=== PATIENT | female | born 2005 | race African-American/Black ===

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

== ENCOUNTER 2023-10-19 14:03 | Emergency (ER) | payer OTHER ==
--- NOTE | 2023-10-19 14:47 | EDPHYS ---
Physician Documentation [facility] Name: Anna Chiang Age: 18 yrs Sex: Female : 2005 Arrival Date: 10/19/2023 Time: 14:03 Bed 4 Private MD: ED Physician Michael Schuster HPI: 10/18 14:41 This 18 yrs old Black Female presents to ER via Ambulatory with complaints of Back lary Pain, Numbness - LEGS, [id number]. 14:41 The patient presents with pain that is acute, with no known mechanism of injury. The lary symptoms are located in the thoracic area, left mid back and right mid back. Onset: The symptoms/episode began/occurred 2 day(s) ago. The pain does not radiate. Associated signs and symptoms: The patient has no apparent associated signs or symptoms. The problem was sustained from a direct blow. Modifying factors: The patient symptoms are alleviated by remaining still, the patient symptoms are aggravated by any movement, bending. Severity of symptoms: At their worst the symptoms were mild, in the emergency department the symptoms are unchanged. The patient has not experienced similar symptoms in the past. 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 ROS: 14:41 Constitutional: Negative for fever, chills, and weight loss, Eyes: Negative for injury, lary pain, redness, and discharge, ENT: Negative for injury, pain, and discharge, Neck: Negative for injury, pain, and swelling, Cardiovascular: Negative for chest pain, palpitations, and edema, Respiratory: Negative for shortness of breath, cough, wheezing, and pleuritic chest pain, Abdomen/GI: Negative for abdominal pain, nausea, vomiting, diarrhea, and constipation, : Negative for injury, bleeding, discharge, and swelling, MS/Extremity: Negative for injury and deformity, Skin: Negative for injury, rash, and discoloration, Neuro: Negative for headache, weakness, numbness, tingling, and seizure, Psych: Negative for depression, anxiety, suicide ideation, homicidal ideation, and hallucinations, Allergy/Immunology: Negative for hives, rash, and allergies, Endocrine: Negative for neck swelling, polydipsia, polyuria, polyphagia, and marked weight changes, Hematologic/Lymphatic: Negative for swollen nodes, abnormal bleeding, and unusual bruising, 14:41 Back: Positive for decreased range of motion, pain at rest, pain with movement, of the thoracic area, left mid back and right mid back, Exam: 14:45 Constitutional: This is a well developed, well nourished patient who is awake, alert, lary and in no acute distress. Head/Face: Normocephalic, atraumatic. Eyes: Pupils equal round and reactive to light, extra-ocular motions intact. Lids and lashes normal. Conjunctiva and sclera are non-icteric and not injected. Cornea within normal limits. Periorbital areas with no swelling, redness, or edema. ENT: Nares patent. No nasal discharge, no septal abnormalities noted. Tympanic membranes are normal and external auditory canals are clear. Oropharynx with no redness, swelling, or masses, exudates, or evidence of obstruction, uvula midline. Mucous membranes moist. Neck: Trachea midline, no thyromegaly or masses palpated, and no cervical lymphadenopathy. Supple, full range of motion without nuchal rigidity, or vertebral point tenderness. No Meningismus. Chest/axilla: Normal chest wall appearance and motion. Nontender with no deformity. No lesions are appreciated. Cardiovascular: Regular rate and rhythm with a normal S1 and S2. No gallops, murmurs, or rubs. Normal PMI, no JVD. No pulse deficits. Respiratory: Lungs have equal breath sounds bilaterally, clear to auscultation and percussion. No rales, rhonchi or wheezes noted. No increased work of breathing, no retractions or nasal flaring. Abdomen/GI: Soft, non-tender, with normal bowel sounds. No distension or tympany. No guarding or rebound. No evidence of tenderness throughout. Pelvic Exam: Normal external genitalia. Speculum exam with closed cervical os, no discharge or bleeding noted. Bimanual exam with normal adnexa, no adnexal or cervical motion tenderness. Normal uterus. Female : Normal external genitalia. Skin: Warm, dry with normal turgor. Normal color with no rashes, no lesions, and no evidence of cellulitis. MS/ Extremity: Pulses equal, no cyanosis. Neurovascular intact. Full, normal range of motion. Neuro: Awake and alert, GCS 15, oriented to person, place, time, and situation. Cranial nerves II-XII grossly intact. Motor strength 5/5 in all extremities. Sensory grossly intact. Cerebellar exam normal. Normal gait. Psych: Awake, alert, with orientation to person, place and time. Behavior, mood, and affect are within normal limits. 14:45 Back: pain, that is mild, that is moderate, ROM is painful, normal spinal alignment noted, CVA tenderness, is absent, muscle spasm, is not present, Straight leg raises: Vital Signs: 14:37 BP 120 / 80; Pulse 92; Resp 16; Temp 97.6; Pulse Ox 99% on R/A; Weight 56.7 kg; Height iw 5 ft. 7 in. ; 14:37 Body Mass Index 19.58 (56.70 kg, 170.18 cm) iw MDM: 14:09 Patient medically screened. lary 14:43 Differential diagnosis: Fracture ruptured disc, sprain. Data reviewed: vital signs, lary nurses notes, lab test result(s), radiologic studies, ultrasound. Consideration of Admission/Observation Escalation of care including admission/observation considered. I considered the following discharge prescriptions or medication management in the emergency department Medications were administered in the Emergency Department. See MAR. Independent interpretation of the following test(s) in the Emergency Department EKG: See my EKG interpretation above Point of Care Ultrasound performed by Emergency Department Team, please see interpretation in the Ultrasound procedure note. Rhythm Strip Interpretation. Test considered but Not performed: MRI: no mri spine. Care significantly affected by the following chronic conditions: . 10/18 14:49 Order name: 1St Trimest Single 1St Fetus EDUT 10/18 14:10 Order name: NPO; Complete Time: 14:12 lary Administered Medications: 14:48 Not Given (Physician Discretion): ns 0.9% 1000 ml IV at 1 bolus Per protocol; 1000 mL iw bolus Disposition Summary: 10/19/23 14:47 Discharge Ordered Notes: Location: Home lary Problem: new lary Symptoms: have improved lary Condition: Stable lary Diagnosis - Fall on same level from slipping, tripping and stumbling with subsequent striking lary against object - Strain of muscle and tendon of back wall of thorax lary - 14 weeks gestation of lary Followup: lary - With: Private Physician - When: 2 - 3 days - Reason: Recheck today's complaints, Continuance of care, Re-evaluation by your physician Discharge Instructions: - Discharge Summary Sheet lary - Musculoskeletal Pain lary - Care lary - Back Pain in lary Forms: - Medication Reconciliation Form lary - Antibiotic Education lary - Prescription Opioid Use lary - Patient Portal Instructions lary - Leadership Thank You Letter lary - Work release form aa5 Prescriptions: - Tylenol 325 mg Oral tablet - take 2 tablets ORAL route every 6 hours as needed; 36 tablet; Refills: 0, lary Product Selection Permitted Signatures: Dispatcher [employer] Michael Daniel MD MD cha Williams, Irene, RN RN iw Corrections: (The following items were deleted from the chart) 14:11 14:11 ABO/RH TYPING+BB.LAB.BRZ ordered. EDMS EDMS 14:11 14:11 BASIC METABOLIC PANEL+C.LAB.BRZ ordered. EDMS EDMS 14:11 14:11 CBC+H.LAB.BRZ ordered. EDMS EDMS 14:11 14:11 Test, Urine+UC.LAB.BRZ ordered. EDMS EDMS 14:11 14:11 QUANTITATIVE HCG+C.LAB.BRZ ordered. EDMS EDMS 14:11 14:11 Urinalysis+U.LAB.BRZ ordered. EDMS EDMS 14:11 14:11 OB Limited+US.RAD.BRZ ordered. EDUT EDMS 14:48 14:10 IV Saline Lock ordered. [facility] iw 14:48 14:10 Labs collected and sent ordered. [facility] iw
--- NOTE | 2023-10-19 14:47 | ER ---
Nurse's Notes [facility] Name: Anna Chiang Age: 18 yrs Sex: Female : 2005 Arrival Date: 10/19/2023 Time: 14:03 Bed 4 Private MD: Diagnosis: Fall on same level from slipping, tripping and stumbling with subsequent striking against object;Strain of muscle and tendon of back wall of thorax;14 weeks gestation of Presentation: 10/18 14:18 Chief complaint: Patient states: she hit against a sharp ledge yesterday , hit her mid iw back, she had pain in her back yesterday and then today she is having pain down her right leg, she got up to the bathroom and felt both her legs go numb, it lasted about 2 minutes , the numbness has resolved but she still has pain down right leg , is 14 weeks . Coronavirus screen: At this time, the client does not indicate any symptoms associated with coronavirus-19. Ebola Screen: No symptoms or risks identified at this time. Initial Sepsis Screen: Does the patient meet any 2 criteria? No. Patient's initial sepsis screen is negative. Does the patient have a suspected source of infection? No. Patient's initial sepsis screen is negative. 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 Vital Signs: 14:37 BP 120 / 80; Pulse 92; Resp 16; Temp 97.6; Pulse Ox 99% on R/A; Weight 56.7 kg; Height iw 5 ft. 7 in. ; 14:37 Body Mass Index 19.58 (56.70 kg, 170.18 cm) iw ED Course: 14:06 Patient arrived in ED. mg5 14:09 Michael Schuster MD is Attending Physician. lary 14:14 Lizzy De La Rosa, RN is Primary Nurse. iw 14:25 Triage completed. iw 14:49 1St Trimest Single 1St Fetus In Process Unspecified. EDMS Administered Medications: 14:48 Not Given (Physician Discretion): ns 0.9% 1000 ml IV at 1 bolus Per protocol; 1000 mL iw bolus Outcome: 14:47 Discharge ordered by MD. barth 15:11 Patient left the ED. iw Signatures: Dispatcher [employer] EDMichael Silva MD MD cha Williams, Irene, REMY RN Carrol Ludwig mg5
--- NOTE | 2023-10-19 15:03 | RAD REPORT ---
EXAM DESCRIPTION: US - 1St Trimest Single 1St Fetus - 10/19/2023 2:48 pm CLINICAL HISTORY: ABD CRAMPING, COMPARISON: Transvaginal OB dated 09/27/2023 FINDINGS: Single IUP identified with positive heart tones. The crown rump length measures 7.1 cm which is consistent with 13 week 3 day. The femur length measures 1.1 cm which is consistent with 13 week 3 day. The heart rate measures 157 bpm. The cervix is closed measuring 3.1 cm. The lona centa is anterior. Neither ovary visualized, possibly obscured by bowel gas . IMPRESSION: Single live IUP with positive heart tones measuring 13 week 3 day with MAY of 04/04.
[2023-10-19 15:16] VITALS: BP 120/80; TEMP 97.6; O2SAT 99
== END 2023-10-19 15:11 | disposition home or self-care (01) ==
LOC: ER 14:03
DX: O9A.211 Injury, poisoning and certain other consequences of external causes complicating pregnancy, first trimester (principal); S29.012A Strain of muscle and tendon of back wall of thorax, initial encounter; W01.10XA Fall on same level from slipping, tripping and stumbling with subsequent striking against unspecified object, initial encounter; Z3A.14 14 weeks gestation of pregnancy
CPT/HCPCS: 76801; 99281

== ENCOUNTER 2023-12-18 13:11 | Emergency (ER) | payer OTHER ==
--- OUTSIDE RECORDS SUMMARY | 2023-12-18 13:17 | XMS REPORT | Continuity of Care Document ---
Author Name Unknown Address [address] [facility] [address] [place] [address] [facility] thconnect Address [address] [facility] [address] [place] [address] Care Team Providers Care Radiation Control Health Physicist Name Role Phone Pcp, Patient Does Not Have A Primary Care Physic niesha VENUS VALENZUELA Attending Clinician UnavailVenus Baum CNM Attending Clinician [phone] Lucas ALBERTO, Janie Luna Attending Clinician Unavaila JAY Marroquin Attending Clinician Unavailable JAY JEAN Attending Clinician Unavailable Jay Jean MD Attending Clinician [phone] MEHRAN PEREZ Attending Clinician Unavailable Yasmine Colin Attending Clinician UnavailMehran Hall MD Attending Clinician [phone] AKINGRAY CHANEL Attending Clinician Unavail able Gray Owens Attending Clinician + HENRIETTA FRANCOIS Attending Clinician Unav ailable Ultrasound, Ang-Mfm Attending Clinician Unavaila Henrietta Hdez MD Attending Clinician + Venus Valenzuela CNM Attending Clinician [phone] BROOKS LUCAS Attending Clinician Unavailable BROOKS LUCAS Attending Clinician Unavailable CECILIA VINCENT Attending Clinician Unavailable CECILIA VINCENT Attending Clinician Unavailable Provider, Ang-Rmchp Temp Attending Clinician Radha FORREST Velez Attending Clinician Unavailable Mandy WARDP, Forrest Luna Attending Clinician [phone] Doctor Unassigned, [place] Attending Clinician U navailable CHICO MILLER Attending Clinician Unavailable Saad JEFFERY, Wisam Attending Clinician [phone] BILLY MUNOZ Attending Clinician Unavailable Alexander LEAD RAMP SERVICE MAN, Billy Attending Clinician [phone] Akinsipe WHCNP, Gray Mcbride Attending Clinician + Inocencia LEAD RAMP SERVICE MAN, Ludy Attending Clinician [phone] LUDY PRO Attending Clinician Unavailje e Ed WARDP, Felicitas Waldron Attending Clinician [phone] FEILCITAS THAYER Attending Clinician Unavailab Sammi Simmons MD Attending Clinician [phone] SAMMI ROBERSON Attending Clinician Unavailable Visit, Ang-Rmchp Nurse Attending Clinician Unava ilable Lab, Ang-Rmchp Attending Clinician Unavailable MEG LOWE Attending Clinician Unavail able SHARON BONDS Attending Clinician Unavailable JAY JEAN Admitting Clinician Unavailable Jay Jean MD Admitting Clinician [phone] BROOKS LUCAS Admitting Clinician Unavailable Payers Payer Name Policy Type Policy Number Effective Date Expirati on Date Source [place] [employer] [id number] 2023 00:00:00 [facility] [place] [id number] 2022 00:00:00 [employer] II [id number] 2018 00:00:00 Problems Condition Name Condition Details Condition Category Status Onset Date Resolution Date Last Treatment Date Treating Clinician Comments Source 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 Not treated as <10,000 [facility] Decreased platelet count Decreased platelet count Disease Active 7 00:00: 00 [facility] False positive HIV serology False positive HIV serology Disease Active 7 00:00: 00 [facility] Nausea and vomiting during Nausea and vomiting during Disease Active 7 00:00: 00 [facility] Mixed anxiety and depressive disorder Mixed anxiety and depressive disorder Disease Active 2021-03 1-15 00:00: 00 [facility] Attention deficit disorder Attention deficit disorder Disease Active 0 8-21 00:00: 00 [facility] Asthma during Asthma during Disease Active 2012-03 2-17 00:00: 00 [facility] Subchorion ic bleed Subchorion ic bleed Disease Resolve d 8-02 00:00: 00 2023-12-10 00:00:00 2023-12-10 10:23:48 [facility] Headache in , antepartum , first trimester Headache in , antepartum , first trimester Disease Resolve d 7-29 00:00: 00 2023-12-10 00:00:00 2023-12-10 10:23:50 [facility] Nausea and vomiting during Nausea and vomiting during Disease Resolve d 7-19 00:00: 00 2023-12-10 00:00:00 2023-12-10 10:23:54 [facility] Initiation of OCP (BCP) Initiation of OCP (BCP) Disease Resolve d 2022-03 00:00: 00 2023-09-20 00:00:00 2023-09-20 08:28:06 [facility] Dysmenorrh ea Dysmenorrh ea Disease Resolve d 2022-03 00:00: 00 2023-09-20 00:00:00 2023-09-20 08:27:54 [facility] Irregular menstrual cycle Irregular menstrual cycle Disease Resolve d 2022-03 00:00: 00 2023-09-20 00:00:00 2023-09-20 08:27:55 [facility] Decreased thyroid stimulatin g hormone level Decreased thyroid stimulatin g hormone level Disease Resolve d 3-16 00:00: 00 2023-09-20 00:00:00 2023-09-20 08:40:23 [facility] Well woman exam Well woman exam Disease Resolve d 8-31 00:00: 00 2023-09-20 00:00:00 2023-09-20 08:27:57 [facility] Encounter for IUD insertion Encounter for IUD insertion Disease Resolve d 2021-03- 00:00: 00 2023-01-08 00:00:00 2023-01-08 12:13:28 [facility] Vaginal discharge Vaginal discharge Disease Resolve d 0 4-28 00:00: 00 2023-01-08 00:00:00 2023-01-08 08:09:20 [facility] Other general counseling and advice for contracept krystal management Other general counseling and advice for contracept krystal management Disease Resolve d 2019-0 3-04 00:00: 00 2023-01-08 00:00:00 2023-01-08 08:09:31 [facility] Encounter for Nexplanon removal Encounter for Nexplanon removal Disease Resolve d 2019-0 3-04 00:00: 00 2019-10-21 00:00:00 2019-10-21 14:00:24 [facility] Breakthrou gh bleeding on Nexplanon Breakthrou gh bleeding on Nexplanon Disease Resolve d 2018-1 2-18 00:00: 00 2019-10-21 00:00:00 2019-10-21 14:00:22 [facility] Allergies, Adverse Reactions, Alerts Allergy Name Allergy Type Status Severity Reaction(s) Onset Date Inactive Date Treating Clinician Comments Source CODEINE DRUG INGREDI Active Unknown-Cmnt 2022-03 00:00: 00 [facility] Codeine Propensi ty to adverse reaction s Active Unknown - See comments 2022-03 00:00: 00 [facility] PENICILL AMINE DRUG INGREDI Active SOB 09-22 00:00: 00 [facility] Penicill amine Propensi ty to adverse reaction s Active Shortness of Breath 09-22 00:00: 00 [facility] Social History Social Habit Start Date Stop Date Quantity Comments Source ASSERTION 2023-07-25 00:00:00 [facility] SDOH Alcohol Std Drinks [facility] History SDOH Alcohol Binge [facility] History SDOH Alcohol Comment [facility] Alcoholic beverage intake 2023-12-10 00:00:00 2023-12-10 00:00:00 Lifetime non-drinker (finding) [facility] History of Social function 2023-11-05 00:00:00 2023-11-05 00:00:00 [facility] Alcohol intake 2023-01-16 00:00:00 2023-01-16 00:00:00 Lifetime non-drinker (finding) [facility] Exposure to SARS-CoV-2 (event) 2022-01-16 00:00:00 2022-01-26 17:49:00 Not sure [facility] Tobacco use and exposure 2021-11-01 00:00:00 2021-11-01 00:00:00 Smokeless tobacco non-user [facility] History SDOH Alcohol Frequency 2018-09-22 00:00:00 2018-09-22 00:00:00 1 [facility] Sex assigned at 2003 00:00:00 2005 00:00:00 [facility] Smoking Status Start Date Stop Date Source Never smoked tobacco [facility] Medications Ordered Medication Name Filled Medication Name Start Date Stop Date Current Medication? Ordering Clinician Indication Dosage Frequency Signature (SIG) Comments Components Source acetaminoph en (TYLENOL) tablet 650 mg 10-02 20:45: 00 10-02 21:36 :00 No 650mg 650 mg, Oral, ONCE, 1 dose, On Mehnaz 10/03/23 at 1545, [facility] NaCl 0.9% (NS) bolus infusion 1,000 mL 09-26 19:00: 00 09-26 21:10 :00 No 1000mL at 999 mL/hr, 1,000 mL, IV Infusion, ONCE, 1 dose, On Sat09/27/23 at 1400, [facility] ondansetron (ZOFRAN (PF)) injection 4 mg 09-26 18:30: 00 09-26 19:45 :00 No 4mg 4 mg, Slow IV Push, ONCE, 1 dose, On Sat09/27/23 at 1330, [facility] proMETHazin e 25 mg tablet 09-19 00:00: 00 Yes [id number] 25mg Take 1 tablet by mouth every 4 (four) hours as needed for Nausea and Vomiting (N/V). [facility] metroNIDAZO LE 500 mg tablet 2022-03 00:00: 00 01-19 05:59 :00 No [id number] 500mg Take 1 tablet by mouth in the morning and 1 tablet in the evening. Do all this for 7 days. [facility] levonorgest rel-ethinyl estradiol (JESSI, 28,) 0.15-0.03 mg per tablet 2022-03 00:00: 00 09-19 00:00 :00 No [id number] 1{tbl} Take 1 tablet by mouth in the morning. [facility] busPIRone 10 mg tablet 11-20 00:00: 00 09-19 00:00 :00 No 10mg Take 1 tablet by mouth in the morning and 1 tablet at noon and 1 tablet in the evening. [facility] FLUoxetine 20 mg capsule 4-10 00:00: 00 09-19 00:00 :00 No TAKE 1 CAPSULE(20 MG) BY MOUTH 1 TIME EACH DAY [facility] azithromyci n 500 mg tablet 2021-03 1- 00:00: 00 02-01 05:59 :00 No [id number] 500mg Take 1 tablet by mouth in the morning for 5 days. [facility] levonorgest reL (KYLEENA) IUD 1 Device 2021-03 23:30: 00 01-11 22:44 :00 No [id number] 1{devic e} [facility] ibuprofen 800 mg tablet 12-01 00:00: 00 12-12 04:59 :00 No [id number] 800mg Take 1 tablet by mouth in the morning and 1 tablet at noon and 1 tablet in the evening. Take with meals. Do all this for 10 days. [facility] medroxyPROG ESTERone (DEPO-PROVE RA) injection 150 mg 11-01 15:45: 00 10-03 15:44 :00 No [id number] 150mg [facility] norgestimat e-ethinyl estradioL 0.18/0.215/ 0.25 mg-25 mcg tablet 08-01 00:00: 00 01-08 00:00 :00 No [id number] 1{tbl} Take 1 tablet by mouth daily. [facility] metroNIDAZO LE 500 mg tablet 07-01 00:00: 00 01-08 00:00 :00 No [id number] 500mg Take 1 tablet by mouth 2 (two) times daily. [facility] Immunizations Ordered Immunization Name Filled Immunization Name Date Status Comments Source [facility] 2021-11-01 00:00:00 Completed [facility] HPV9 2021-11-01 00:00:00 Completed [facility] 2021-11-01 00:00:00 Completed [facility] 2021-11-01 00:00:00 Completed [facility] HPV9 2021-11-01 00:00:00 Completed [facility] HPV9 2021-11-01 00:00:00 Completed [facility] HPV9 2021-11-01 00:00:00 Completed [facility] HPV9 2021-11-01 00:00:00 Completed [facility] HPV9 2021-11-01 00:00:00 Completed [facility] HPV9 2021-11-01 00:00:00 Completed [facility] HPV9 2021-11-01 00:00:00 Completed [facility] SARS-COV-2 COVID-19 PFIZER VACCINE 2020-07-25 00:00:00 Completed [facility] SARS-COV-2 COVID-19 PFIZER VACCINE 2020-07-25 00:00:00 Completed [facility] SARS-COV-2 COVID-19 PFIZER VACCINE 2020-07-25 00:00:00 Completed [facility] SARS-COV-2 COVID-19 PFIZER VACCINE 2020-07-25 00:00:00 Completed [facility] SARS-COV-2 COVID-19 PFIZER VACCINE 2020-07-25 00:00:00 Completed [facility] SARS-COV-2 COVID-19 PFIZER VACCINE 2020-07-25 00:00:00 Completed [facility] SARS-COV-2 COVID-19 PFIZER VACCINE 2020-07-25 00:00:00 Completed [facility] SARS-COV-2 COVID-19 PFIZER VACCINE 2020-07-25 00:00:00 Completed [facility] SARS-COV-2 COVID-19 PFIZER VACCINE 2020-07-25 00:00:00 Completed [facility] SARS-COV-2 COVID-19 PFIZER VACCINE 2020-07-25 00:00:00 Completed [facility] SARS-COV-2 COVID-19 PFIZER VACCINE 2020-07-25 00:00:00 Completed [facility] SARS-COV-2 COVID-19 PFIZER VACCINE 2020-06-25 00:00:00 Completed [facility] SARS-COV-2 COVID-19 PFIZER VACCINE 2020-06-25 00:00:00 Completed [facility] SARS-COV-2 COVID-19 PFIZER VACCINE 2020-06-25 00:00:00 Completed [facility] SARS-COV-2 COVID-19 PFIZER VACCINE 2020-06-25 00:00:00 Completed [facility] SARS-COV-2 COVID-19 PFIZER VACCINE 2020-06-25 00:00:00 Completed [facility] SARS-COV-2 COVID-19 PFIZER VACCINE 2020-06-25 00:00:00 Completed [facility] SARS-COV-2 COVID-19 PFIZER VACCINE 2020-06-25 00:00:00 Completed [facility] SARS-COV-2 COVID-19 PFIZER VACCINE 2020-06-25 00:00:00 Completed [facility] SARS-COV-2 COVID-19 PFIZER VACCINE 2020-06-25 00:00:00 Completed [facility] SARS-COV-2 COVID-19 PFIZER VACCINE 2020-06-25 00:00:00 Completed [facility] SARS-COV-2 COVID-19 PFIZER VACCINE 2020-06-25 00:00:00 Completed [facility] HPV9 2018-09-22 00:00:00 Completed [facility] HPV 2018-09-22 00:00:00 Completed [facility] HPV9 2018-09-22 00:00:00 Completed [facility] HPV 2018-09-22 00:00:00 Completed [facility] HPV9 2018-09-22 00:00:00 Completed [facility] HPV 2018-09-22 00:00:00 Completed [facility] HPV9 2018-09-22 00:00:00 Completed [facility] HPV 2018-09-22 00:00:00 Completed [facility] HPV9 2018-09-22 00:00:00 Completed [facility] HPV 2018-09-22 00:00:00 Completed [facility] HPV9 2018-09-22 00:00:00 Completed [facility] HPV 2018-09-22 00:00:00 Completed [facility] HPV9 2018-09-22 00:00:00 Completed [facility] HPV 2018-09-22 00:00:00 Completed [facility] HPV9 2018-09-22 00:00:00 Completed [facility] HPV 2018-09-22 00:00:00 Completed [facility] HPV9 2018-09-22 00:00:00 Completed [facility] HPV 2018-09-22 00:00:00 Completed [facility] HPV9 2018-09-22 00:00:00 Completed [facility] HPV 2018-09-22 00:00:00 Completed [facility] HPV9 2018-09-22 00:00:00 Completed [facility] HPV 2018-09-22 00:00:00 Completed Meningococcal Vaccine 2015-10-19 00:00:00 Completed [facility] TDAP 2015-10-19 00:00:00 Completed [facility] Meningococcal Vaccine 2015-10-19 00:00:00 Completed [facility] TDAP 2015-10-19 00:00:00 Completed [facility] Meningococcal Vaccine 2015-10-19 00:00:00 Completed [facility] TDAP 2015-10-19 00:00:00 Completed [facility] Meningococcal Vaccine 2015-10-19 00:00:00 Completed [facility] TDAP 2015-10-19 00:00:00 Completed [facility] Meningococcal Vaccine 2015-10-19 00:00:00 Completed [facility] TDAP 2015-10-19 00:00:00 Completed [facility] Meningococcal Vaccine 2015-10-19 00:00:00 Completed [facility] TDAP 2015-10-19 00:00:00 Completed [facility] Meningococcal Vaccine 2015-10-19 00:00:00 Completed [facility] TDAP 2015-10-19 00:00:00 Completed [facility] Meningococcal Vaccine 2015-10-19 00:00:00 Completed [facility] TDAP 2015-10-19 00:00:00 Completed [facility] Meningococcal Vaccine 2015-10-19 00:00:00 Completed [facility] TDAP 2015-10-19 00:00:00 Completed [facility] Meningococcal Vaccine 2015-10-19 00:00:00 Completed [facility] TDAP 2015-10-19 00:00:00 Completed [facility] Meningococcal Vaccine 2015-10-19 00:00:00 Completed TDAP 2015-10-19 00:00:00 Completed DTAP 2008-10-25 00:00:00 Completed [facility] DTAP 2008-10-25 00:00:00 Completed [facility] DTAP 2008-10-25 00:00:00 Completed [facility] DTAP 2008-10-25 00:00:00 Completed [facility] DTAP 2008-10-25 00:00:00 Completed [facility] DTAP 2008-10-25 00:00:00 Completed [facility] DTAP 2008-10-25 00:00:00 Completed [facility] DTAP 2008-10-25 00:00:00 Completed [facility] DTAP 2008-10-25 00:00:00 Completed [facility] DTAP 2008-10-25 00:00:00 Completed [facility] DTAP 2008-10-25 00:00:00 Completed MMR 2008-03-05 00:00:00 Completed [facility] MMR 2008-03-05 00:00:00 Completed [facility] MMR 2008-03-05 00:00:00 Completed [facility] MMR 2008-03-05 00:00:00 Completed [facility] MMR 2008-03-05 00:00:00 Completed [facility] MMR 2008-03-05 00:00:00 Completed [facility] MMR 2008-03-05 00:00:00 Completed [facility] MMR 2008-03-05 00:00:00 Completed [facility] MMR 2008-03-05 00:00:00 Completed [facility] MMR 2008-03-05 00:00:00 Completed [facility] MMR 2008-03-05 00:00:00 Completed Hepatitis A Adult 2008-01-02 00:00:00 Completed [facility] MMR 2008-01-02 00:00:00 Completed [facility] Hepatitis A Adult 2008-01-02 00:00:00 Completed [facility] MMR 2008-01-02 00:00:00 Completed [facility] Hepatitis A Adult 2008-01-02 00:00:00 Completed [facility] MMR 2008-01-02 00:00:00 Completed [facility] Hepatitis A Adult 2008-01-02 00:00:00 Completed [facility] MMR 2008-01-02 00:00:00 Completed [facility] Hepatitis A Adult 2008-01-02 00:00:00 Completed [facility] MMR 2008-01-02 00:00:00 Completed [facility] Hepatitis A Adult 2008-01-02 00:00:00 Completed [facility] MMR 2008-01-02 00:00:00 Completed [facility] Hepatitis A Adult 2008-01-02 00:00:00 Completed [facility] MMR 2008-01-02 00:00:00 Completed [facility] Hepatitis A Adult 2008-01-02 00:00:00 Completed [facility] MMR 2008-01-02 00:00:00 Completed [facility] Hepatitis A Adult 2008-01-02 00:00:00 Completed [facility] MMR 2008-01-02 00:00:00 Completed [facility] Hepatitis A Adult 2008-01-02 00:00:00 Completed [facility] MMR 2008-01-02 00:00:00 Completed [facility] Hepatitis A Adult 2008-01-02 00:00:00 Completed MMR 2008-01-02 00:00:00 Completed DTAP 2007-12-08 00:00:00 Completed [facility] HIB 3 Dose Schedule 2007-12-08 00:00:00 Completed [facility] Hep B, Adol or Pedi Dosage 2007-12-08 00:00:00 Completed [facility] Polio (IPV/OPV) 2007-12-08 00:00:00 Completed [facility] Varicella (varivax)(chicken pox) 2007-12-08 00:00:00 Completed [facility] Pneumococcal 7 Conjugate, PCV7 (Prevnar7) 2007-12-08 00:00:00 Completed [facility] DTAP 2007-12-08 00:00:00 Completed [facility] HIB 3 Dose Schedule 2007-12-08 00:00:00 Completed [facility] Hep B, Adol or Pedi Dosage 2007-12-08 00:00:00 Completed [facility] Polio (IPV/OPV) 2007-12-08 00:00:00 Completed [facility] Varicella (varivax)(chicken pox) 2007-12-08 00:00:00 Completed [facility] Pneumococcal 7 Conjugate, PCV7 (Prevnar7) 2007-12-08 00:00:00 Completed [facility] DTAP 2007-12-08 00:00:00 Completed [facility] HIB 3 Dose Schedule 2007-12-08 00:00:00 Completed [facility] Hep B, Adol or Pedi Dosage 2007-12-08 00:00:00 Completed [facility] Polio (IPV/OPV) 2007-12-08 00:00:00 Completed [facility] Varicella (varivax)(chicken pox) 2007-12-08 00:00:00 Completed [facility] Pneumococcal 7 Conjugate, PCV7 (Prevnar7) 2007-12-08 00:00:00 Completed [facility] DTAP 2007-12-08 00:00:00 Completed [facility] HIB 3 Dose Schedule 2007-12-08 00:00:00 Completed [facility] Hep B, Adol or Pedi Dosage 2007-12-08 00:00:00 Completed [facility] Polio (IPV/OPV) 2007-12-08 00:00:00 Completed [facility] Varicella (varivax)(chicken pox) 2007-12-08 00:00:00 Completed [facility] Pneumococcal 7 Conjugate, PCV7 (Prevnar7) 2007-12-08 00:00:00 Completed [facility] DTAP 2007-12-08 00:00:00 Completed [facility] HIB 3 Dose Schedule 2007-12-08 00:00:00 Completed [facility] Hep B, Adol or Pedi Dosage 2007-12-08 00:00:00 Completed [facility] Polio (IPV/OPV) 2007-12-08 00:00:00 Completed [facility] Varicella (varivax)(chicken pox) 2007-12-08 00:00:00 Completed [facility] Pneumococcal 7 Conjugate, PCV7 (Prevnar7) 2007-12-08 00:00:00 Completed [facility] DTAP 2007-12-08 00:00:00 Completed [facility] HIB 3 Dose Schedule 2007-12-08 00:00:00 Completed [facility] Hep B, Adol or Pedi Dosage 2007-12-08 00:00:00 Completed [facility] [facility] Polio (IPV/OPV) 2007-12-08 00:00:00 Completed [facility] Varicella (varivax)(chicken pox) 2007-12-08 00:00:00 Completed [facility] Pneumococcal 7 Conjugate, PCV7 (Prevnar7) 2007-12-08 00:00:00 Completed [facility] DTAP 2007-12-08 00:00:00 Completed [facility] HIB 3 Dose Schedule 2007-12-08 00:00:00 Completed [facility] Hep B, Adol or Pedi Dosage 2007-12-08 00:00:00 Completed [facility] Polio (IPV/OPV) 2007-12-08 00:00:00 Completed [facility] Varicella (varivax)(chicken pox) 2007-12-08 00:00:00 Completed [facility] Pneumococcal 7 Conjugate, PCV7 (Prevnar7) 2007-12-08 00:00:00 Completed [facility] DTAP 2007-12-08 00:00:00 Completed [facility] HIB 3 Dose Schedule 2007-12-08 00:00:00 Completed [facility] Hep B, Adol or Pedi Dosage 2007-12-08 00:00:00 Completed [facility] Polio (IPV/OPV) 2007-12-08 00:00:00 Completed [facility] Varicella (varivax)(chicken pox) 2007-12-08 00:00:00 Completed [facility] Pneumococcal 7 Conjugate, PCV7 (Prevnar7) 2007-12-08 00:00:00 Completed [facility] DTAP 2007-12-08 00:00:00 Completed [facility] HIB 3 Dose Schedule 2007-12-08 00:00:00 Completed [facility] Hep B, Adol or Pedi Dosage 2007-12-08 00:00:00 Completed [facility] Polio (IPV/OPV) 2007-12-08 00:00:00 Completed [facility] Varicella (varivax)(chicken pox) 2007-12-08 00:00:00 Completed [facility] Pneumococcal 7 Conjugate, PCV7 (Prevnar7) 2007-12-08 00:00:00 Completed [facility] DTAP 2007-12-08 00:00:00 Completed [facility] HIB 3 Dose Schedule 2007-12-08 00:00:00 Completed [facility] Hep B, Adol or Pedi Dosage 2007-12-08 00:00:00 Completed [facility] Polio (IPV/OPV) 2007-12-08 00:00:00 Completed [facility] Varicella (varivax)(chicken pox) 2007-12-08 00:00:00 Completed [facility] Pneumococcal 7 Conjugate, PCV7 (Prevnar7) 2007-12-08 00:00:00 Completed [facility] DTAP 2007-12-08 00:00:00 Completed HIB 3 Dose Schedule 2007-12-08 00:00:00 Completed Hep B, Adol or Pedi Dosage 2007-12-08 00:00:00 Completed Polio (IPV/OPV) 2007-12-08 00:00:00 Completed Varicella (varivax)(chicken pox) 2007-12-08 00:00:00 Completed Pneumococcal 7 Conjugate, PCV7 (Prevnar7) 2007-12-08 00:00:00 Completed DTAP 2006-09-30 00:00:00 Completed [facility] HIB 3 Dose Schedule 2006-09-30 00:00:00 Completed [facility] Hepatitis A Adult 2006-09-30 00:00:00 Completed [facility] MMR 2006-09-30 00:00:00 Completed [facility] Polio (IPV/OPV) 2006-09-30 00:00:00 Completed [facility] Varicella (varivax)(chicken pox) 2006-09-30 00:00:00 Completed [facility] Pneumococcal 7 Conjugate, PCV7 (Prevnar7) 2006-09-30 00:00:00 Completed [facility] DTAP 2006-09-30 00:00:00 Completed [facility] HIB 3 Dose Schedule 2006-09-30 00:00:00 Completed [facility] Hepatitis A Adult 2006-09-30 00:00:00 Completed [facility] MMR 2006-09-30 00:00:00 Completed [facility] Polio (IPV/OPV) 2006-09-30 00:00:00 Completed [facility] Varicella (varivax)(chicken pox) 2006-09-30 00:00:00 Completed [facility] Pneumococcal 7 Conjugate, PCV7 (Prevnar7) 2006-09-30 00:00:00 Completed [facility] DTAP 2006-09-30 00:00:00 Completed [facility] HIB 3 Dose Schedule 2006-09-30 00:00:00 Completed [facility] Hepatitis A Adult 2006-09-30 00:00:00 Completed [facility] MMR 2006-09-30 00:00:00 Completed [facility] Polio (IPV/OPV) 2006-09-30 00:00:00 Completed [facility] Varicella (varivax)(chicken pox) 2006-09-30 00:00:00 Completed [facility] Pneumococcal 7 Conjugate, PCV7 (Prevnar7) 2006-09-30 00:00:00 Completed [facility] DTAP 2006-09-30 00:00:00 Completed [facility] HIB 3 Dose Schedule 2006-09-30 00:00:00 Completed [facility] Hepatitis A Adult 2006-09-30 00:00:00 Completed [facility] MMR 2006-09-30 00:00:00 Completed [facility] Polio (IPV/OPV) 2006-09-30 00:00:00 Completed [facility] Varicella (varivax)(chicken pox) 2006-09-30 00:00:00 Completed [facility] Pneumococcal 7 Conjugate, PCV7 (Prevnar7) 2006-09-30 00:00:00 Completed [facility] DTAP 2006-09-30 00:00:00 Completed [facility] HIB 3 Dose Schedule 2006-09-30 00:00:00 Completed [facility] Hepatitis A Adult 2006-09-30 00:00:00 Completed [facility] MMR 2006-09-30 00:00:00 Completed [facility] Polio (IPV/OPV) 2006-09-30 00:00:00 Completed [facility] Varicella (varivax)(chicken pox) 2006-09-30 00:00:00 Completed [facility] Pneumococcal 7 Conjugate, PCV7 (Prevnar7) 2006-09-30 00:00:00 Completed [facility] DTAP 2006-09-30 00:00:00 Completed [facility] HIB 3 Dose Schedule 2006-09-30 00:00:00 Completed [facility] Hepatitis A Adult 2006-09-30 00:00:00 Completed [facility] MMR 2006-09-30 00:00:00 Completed [facility] Polio (IPV/OPV) 2006-09-30 00:00:00 Completed [facility] Varicella (varivax)(chicken pox) 2006-09-30 00:00:00 Completed [facility] Pneumococcal 7 Conjugate, PCV7 (Prevnar7) 2006-09-30 00:00:00 Completed [facility] DTAP 2006-09-30 00:00:00 Completed [facility] HIB 3 Dose Schedule 2006-09-30 00:00:00 Completed [facility] Hepatitis A Adult 2006-09-30 00:00:00 Completed [facility] MMR 2006-09-30 00:00:00 Completed [facility] Polio (IPV/OPV) 2006-09-30 00:00:00 Completed [facility] Varicella (varivax)(chicken pox) 2006-09-30 00:00:00 Completed [facility] Pneumococcal 7 Conjugate, PCV7 (Prevnar7) 2006-09-30 00:00:00 Completed [facility] DTAP 2006-09-30 00:00:00 Completed [facility] HIB 3 Dose Schedule 2006-09-30 00:00:00 Completed [facility] Hepatitis A Adult 2006-09-30 00:00:00 Completed [facility] MMR 2006-09-30 00:00:00 Completed [facility] Polio (IPV/OPV) 2006-09-30 00:00:00 Completed [facility] Varicella (varivax)(chicken pox) 2006-09-30 00:00:00 Completed [facility] Pneumococcal 7 Conjugate, PCV7 (Prevnar7) 2006-09-30 00:00:00 Completed [facility] DTAP 2006-09-30 00:00:00 Completed [facility] HIB 3 Dose Schedule 2006-09-30 00:00:00 Completed [facility] Hepatitis A Adult 2006-09-30 00:00:00 Completed [facility] MMR 2006-09-30 00:00:00 Completed [facility] Polio (IPV/OPV) 2006-09-30 00:00:00 Completed [facility] Varicella (varivax)(chicken pox) 2006-09-30 00:00:00 Completed [facility] Pneumococcal 7 Conjugate, PCV7 (Prevnar7) 2006-09-30 00:00:00 Completed [facility] DTAP 2006-09-30 00:00:00 Completed [facility] HIB 3 Dose Schedule 2006-09-30 00:00:00 Completed [facility] Hepatitis A Adult 2006-09-30 00:00:00 Completed [facility] MMR 2006-09-30 00:00:00 Completed [facility] Polio (IPV/OPV) 2006-09-30 00:00:00 Completed [facility] Varicella (varivax)(chicken pox) 2006-09-30 00:00:00 Completed [facility] Pneumococcal 7 Conjugate, PCV7 (Prevnar7) 2006-09-30 00:00:00 Completed [facility] DTAP 2006-09-30 00:00:00 Completed HIB 3 Dose Schedule 2006-09-30 00:00:00 Completed Hepatitis A Adult 2006-09-30 00:00:00 Completed MMR 2006-09-30 00:00:00 Completed Polio (IPV/OPV) 2006-09-30 00:00:00 Completed Varicella (varivax)(chicken pox) 2006-09-30 00:00:00 Completed Pneumococcal 7 Conjugate, PCV7 (Prevnar7) 2006-09-30 00:00:00 Completed DTAP 2003 00:00:00 Completed [facility] HIB 3 Dose Schedule 2003 00:00:00 Completed [facility] Hep B, Adol or Pedi Dosage 2003 00:00:00 Completed [facility] Polio (IPV/OPV) 2003 00:00:00 Completed [facility] Pneumococcal 7 Conjugate, PCV7 (Prevnar7) 2003 00:00:00 Completed [facility] DTAP 2003 00:00:00 Completed [facility] HIB 3 Dose Schedule 2003 00:00:00 Completed [facility] Hep B, Adol or Pedi Dosage 2003 00:00:00 Completed [facility] Polio (IPV/OPV) 2003 00:00:00 Completed [facility] Pneumococcal 7 Conjugate, PCV7 (Prevnar7) 2003 00:00:00 Completed [facility] DTAP 2003 00:00:00 Completed [facility] HIB 3 Dose Schedule 2003 00:00:00 Completed [facility] Hep B, Adol or Pedi Dosage 2003 00:00:00 Completed [facility] Polio (IPV/OPV) 2003 00:00:00 Completed [facility] Pneumococcal 7 Conjugate, PCV7 (Prevnar7) 2003 00:00:00 Completed [facility] DTAP 2003 00:00:00 Completed [facility] HIB 3 Dose Schedule 2003 00:00:00 Completed [facility] Hep B, Adol or Pedi Dosage 2003 00:00:00 Completed [facility] Polio (IPV/OPV) 2003 00:00:00 Completed [facility] Pneumococcal 7 Conjugate, PCV7 (Prevnar7) 2003 00:00:00 Completed [facility] DTAP 2003 00:00:00 Completed [facility] HIB 3 Dose Schedule 2003 00:00:00 Completed [facility] Hep B, Adol or Pedi Dosage 2003 00:00:00 Completed [facility] Polio (IPV/OPV) 2003 00:00:00 Completed [facility] Pneumococcal 7 Conjugate, PCV7 (Prevnar7) 2003 00:00:00 Completed [facility] DTAP 2003 00:00:00 Completed [facility] HIB 3 Dose Schedule 2003 00:00:00 Completed [facility] Hep B, Adol or Pedi Dosage 2003 00:00:00 Completed [facility] Polio (IPV/OPV) 2003 00:00:00 Completed [facility] Pneumococcal 7 Conjugate, PCV7 (Prevnar7) 2003 00:00:00 Completed [facility] DTAP 2003 00:00:00 Completed [facility] HIB 3 Dose Schedule 2003 00:00:00 Completed [facility] Hep B, Adol or Pedi Dosage 2003 00:00:00 Completed [facility] Polio (IPV/OPV) 2003 00:00:00 Completed [facility] Pneumococcal 7 Conjugate, PCV7 (Prevnar7) 2003 00:00:00 Completed [facility] DTAP 2003 00:00:00 Completed [facility] HIB 3 Dose Schedule 2003 00:00:00 Completed [facility] Hep B, Adol or Pedi Dosage 2003 00:00:00 Completed [facility] Polio (IPV/OPV) 2003 00:00:00 Completed [facility] Pneumococcal 7 Conjugate, PCV7 (Prevnar7) 2003 00:00:00 Completed [facility] DTAP 2003 00:00:00 Completed [facility] HIB 3 Dose Schedule 2003 00:00:00 Completed [facility] Hep B, Adol or Pedi Dosage 2003 00:00:00 Completed [facility] Polio (IPV/OPV) 2003 00:00:00 Completed [facility] Pneumococcal 7 Conjugate, PCV7 (Prevnar7) 2003 00:00:00 Completed [facility] DTAP 2003 00:00:00 Completed [facility] HIB 3 Dose Schedule 2003 00:00:00 Completed [facility] Hep B, Adol or Pedi Dosage 2003 00:00:00 Completed [facility] Polio (IPV/OPV) 2003 00:00:00 Completed [facility] Pneumococcal 7 Conjugate, PCV7 (Prevnar7) 2003 00:00:00 Completed [facility] DTAP 2003 00:00:00 Completed HIB 3 Dose Schedule 2003 00:00:00 Completed Hep B, Adol or Pedi Dosage 2003 00:00:00 Completed Polio (IPV/OPV) 2003 00:00:00 Completed Pneumococcal 7 Conjugate, PCV7 (Prevnar7) 2003 00:00:00 Completed Hep B, Adol or Pedi Dosage 2003 00:00:00 Completed [facility] Hep B, Adol or Pedi Dosage 2003 00:00:00 Completed [facility] Hep B, Adol or Pedi Dosage 2003 00:00:00 Completed [facility] Hep B, Adol or Pedi Dosage 2003 00:00:00 Completed [facility] Hep B, Adol or Pedi Dosage 2003 00:00:00 Completed [facility] Hep B, Adol or Pedi Dosage 2003 00:00:00 Completed [facility] Hep B, Adol or Pedi Dosage 2003 00:00:00 Completed [facility] Hep B, Adol or Pedi Dosage 2003 00:00:00 Completed [facility] Hep B, Adol or Pedi Dosage 2003 00:00:00 Completed [facility] Hep B, Adol or Pedi Dosage 2003 00:00:00 Completed [facility] Hep B, Adol or Pedi Dosage 2003 00:00:00 Completed DTAP Unknown Completed [facility] HIB 3 Dose Schedule Unknown Completed [facility]atitis [facility], Adol or Pedi Dosage Unknown Completed [facility] HPV Unknown Completed [facility] Meningococcal Vaccine Unknown Completed [facility] MMR Unknown Completed [facility] Polio (IPV[facility]) [facility] Com[facility] Varicella (varivax)(chicken pox) Unknown Completed [facility] Pneumococcal 7 Conjugate, PCV7 (Prevnar7) Unknown Completed [facility] SARS-COV-2 COVID-19 PFIZER VACCINE Unknown Completed [facility] HPV9 Unknown Completed [facility] DTAP Unknown Completed [facility] HIB 3 Dose Schedule Unknown Completed [facility] Hepatitis A Adult Unknown [facility] Hep B, Adol or Pedi Dosage Unknown Completed [facility] HPV Unknown Completed [facility] Meningococcal Vaccine Unknown Completed [facility] MMR Unknown Completed [facility] Polio (IPV/OPV) Unknown [facility] Completed [facility] Varicella (varivax)(chicken pox) Unknown Completed [facility] Pneumococcal 7 Conjugate, PCV7 (Prevnar7) Unknown Completed [facility] SARS-COV-2 COVID-19 PFIZER VACCINE Unknown Completed [facility] HPV9 Unknown Completed [facility] DTAP Unknown Completed [facility] HIB 3 Dose Schedule Unknown Completed [facility] Hepatitis A Adult Unknown [facility] Hep B, Adol or Pedi Dosage Unknown Completed [facility] HPV Unknown Completed [facility] Meningococcal Vaccine Unknown Completed [facility] MMR Unknown Completed [facility] Polio (IPV/OPV) Unknown [facility] Completed [facility] Varicella (varivax)(chicken pox) Unknown Completed [facility] Pneumococcal 7 Conjugate, PCV7 (Prevnar7) Unknown Completed [facility] SARS-COV-2 COVID-19 PFIZER VACCINE Unknown Completed [facility] HPV9 Unknown Completed [facility] DTAP Unknown Completed [facility] HIB 3 Dose Schedule Unknown Completed [facility] Hepatitis A Adult Unknown [facility] Hep B, Adol or Pedi Dosage Unknown Completed [facility] HPV Unknown Completed [facility] Meningococcal Vaccine Unknown Completed [facility] MMR Unknown Completed [facility] Polio (IPV/OPV) Unknown [facility] Completed [facility] Varicella (varivax)(chicken pox) Unknown Completed [facility] Pneumococcal 7 Conjugate, PCV7 (Prevnar7) Unknown Completed [facility] SARS-COV-2 COVID-19 PFIZER VACCINE Unknown Completed [facility] HPV9 Unknown Completed [facility] DTAP Unknown Completed [facility] HIB 3 Dose Schedule Unknown Completed [facility] Hepatitis A Adult Unknown [facility] Hep B, Adol or Pedi Dosage Unknown Completed [facility] HPV Unknown Completed [facility] Meningococcal Vaccine Unknown Completed [facility] MMR Unknown Completed [facility] Polio (IPV/OPV) Unknown Completed [facility] TDAP Unknown Completed [facility] Varicella (varivax)(chicken pox) Unknown Completed [facility] Pneumococcal 7 Conjugate, PCV7 (Prevnar7) Unknown Completed [facility] SARS-COV-2 COVID-19 PFIZER VACCINE Unknown Completed [facility] HPV9 Unknown Completed [facility] DTAP Unknown Completed [facility] HIB 3 Dose Schedule Unknown Completed [facility] Hepatitis A Adult Unknown [facility] Hep B, Adol or Pedi Dosage Unknown Completed [facility] HPV Unknown Completed [facility] Meningococcal Vaccine Unknown Completed [facility] MMR Unknown Completed [facility] Polio (IPV/OPV) Unknown [facility] Completed [facility] Varicella (varivax)(chicken pox) Unknown Completed [facility] Pneumococcal 7 Conjugate, PCV7 (Prevnar7) Unknown Completed [facility] SARS-COV-2 COVID-19 PFIZER VACCINE Unknown Completed [facility] HPV9 Unknown Completed [facility] DTAP Unknown Completed [facility] HIB 3 Dose Schedule Unknown Completed [facility] Hepatitis A Adult Unknown [facility] Hep B, Adol or Pedi Dosage Unknown Completed [facility] HPV Unknown Completed [facility] Meningococcal Vaccine Unknown Completed [facility] MMR Unknown Completed [facility] Polio (IPV/OPV) Unknown Completed [facility] TDAP Unknown Completed [facility] Varicella (varivax)(chicken pox) Unknown Completed [facility] Pneumococcal 7 Conjugate, PCV7 (Prevnar7) Unknown Completed [facility] SARS-COV-2 COVID-19 PFIZER VACCINE Unknown Completed [facility] HPV9 Unknown Completed [facility] DTAP Unknown Completed [facility] HIB 3 Dose Schedule Unknown Completed [facility] Hepatitis A Adult Unknown [facility] Hep B, Adol or Pedi Dosage Unknown Completed [facility] HPV Unknown Completed [facility] Meningococcal Vaccine Unknown Completed [facility] MMR Unknown Completed [facility] Polio (IPV/OPV) Unknown Completed [facility] TDAP Unknown Completed [facility] Varicella (varivax)(chicken pox) Unknown Completed [facility] Pneumococcal 7 Conjugate, PCV7 (Prevnar7) Unknown Completed [facility] SARS-COV-2 COVID-19 PFIZER VACCINE Unknown Completed [facility] HPV9 Unknown Completed [facility] DTAP Unknown Completed [facility] HIB 3 Dose Schedule Unknown Completed [facility] Hepatitis A Adult Unknown [facility] Hep B, Adol or Pedi Dosage Unknown Completed [facility] HPV Unknown Completed [facility] Meningococcal Vaccine Unknown Completed [facility] MMR Unknown Completed [facility] Polio (IPV/OPV) Unknown Completed [facility] TDAP Unknown Completed [facility] Varicella (varivax)(chicken pox) Unknown Completed [facility] Pneumococcal 7 Conjugate, PCV7 (Prevnar7) Unknown Completed [facility] SARS-COV-2 COVID-19 PFIZER VACCINE Unknown Completed [facility] HPV9 Unknown Completed [facility] DTAP Unknown Completed [facility] HIB 3 Dose Schedule Unknown Completed [facility] Hepatitis A Adult Unknown [facility] Hep B, Adol or Pedi Dosage Unknown Completed [facility] HPV Unknown Completed [facility] Meningococcal Vaccine Unknown Completed [facility] MMR Unknown Completed [facility] Polio (IPV/OPV) Unknown [facility] Completed [facility] Varicella (varivax)(chicken pox) Unknown Completed [facility] Pneumococcal 7 Conjugate, PCV7 (Prevnar7) Unknown Completed [facility] SARS-COV-2 COVID-19 PFIZER VACCINE Unknown Completed [facility] HPV9 Unknown Completed [facility] DTAP Unknown Completed [facility] HIB 3 Dose Schedule Unknown Completed [facility] Hepatitis A Adult Unknown [facility] Hep B, Adol or Pedi Dosage Unknown Completed [facility] HPV Unknown Completed [facility] Meningococcal Vaccine Unknown Completed [facility] MMR Unknown Completed [facility] Polio (IPV/OPV) Unknown [facility] Unknown Completed [facility] Varicella (varivax)(chicken pox) Unknown Completed [facility] Pneumococcal 7 Conjugate, PCV7 (Prevnar7) Unknown Completed [facility] SARS-COV-2 COVID-19 PFIZER VACCINE Unknown Completed [facility] HPV9 Unknown Completed [facility] DTAP Unknown Completed [facility] HIB 3 Dose Schedule Unknown Completed [facility] Hepatitis A Adult Unknown [facility] Hep B, Adol or Pedi Dosage Unknown Completed [facility] HPV Unknown Completed [facility] Meningococcal Vaccine Unknown Completed [facility] MMR Unknown Completed [facility] Polio (IPV/OPV) Unknown [facility] Completed [facility] Varicella (varivax)(chicken pox) Unknown Completed [facility] Pneumococcal 7 Conjugate, PCV7 (Prevnar7) Unknown Completed [facility] SARS-COV-2 COVID-19 PFIZER VACCINE Unknown Completed [facility] HPV9 Unknown Completed [facility] DTAP Unknown Completed [facility] HIB 3 Dose Schedule Unknown Completed [facility] Hepatitis A Adult Unknown Com[facility] Hep B, Adol or Pedi Dosage Unknown Completed [facility] HPV Unknown Completed [facility] Meningococcal Vaccine Unknown Completed [facility] MMR Unknown Completed [facility] Polio (IPV/OPV) Unknown [facility] Completed [facility] Varicella (varivax)(chicken pox) Unknown Completed [facility] Pneumococcal 7 Conjugate, PCV7 (Prevnar7) Unknown Completed [facility] SARS-COV-2 COVID-19 PFIZER VACCINE Unknown Completed [facility] HPV9 Unknown Completed [facility] DTAP Unknown Completed [facility] HIB 3 Dose Schedule Unknown Completed [facility] Hepatitis A Adult Unknown Com[facility] Hep B, Adol or Pedi Dosage Unknown Completed [facility] HPV Unknown Completed [facility] Meningococcal Vaccine Unknown Completed [facility] MMR Unknown Completed [facility] Polio (IPV/OPV) Unknown [facility] Unknown Completed [facility] Varicella (varivax)(chicken pox) Unknown Completed [facility] Pneumococcal 7 Conjugate, PCV7 (Prevnar7) Unknown Completed [facility] SARS-COV-2 COVID-19 PFIZER VACCINE Unknown Completed [facility] HPV9 Unknown Completed [facility] DTAP Unknown Completed [facility] HIB 3 Dose Schedule Unknown Completed [facility] Hepatitis A Adult Unknown Com[facility] Hep B, Adol or Pedi Dosage Unknown Completed [facility] HPV Unknown Completed [facility] Meningococcal Vaccine Unknown Completed [facility] MMR Unknown Completed [facility] Polio (IPV/OPV) Unknown Completed [facility] TDAP Unknown Completed [facility] Varicella (varivax)(chicken pox) Unknown Completed [facility] Pneumococcal 7 Conjugate, PCV7 (Prevnar7) Unknown Completed [facility] SARS-COV-2 COVID-19 PFIZER VACCINE Unknown Completed [facility] HPV9 Unknown Completed [facility] DTAP Unknown Completed [facility] HIB 3 Dose Schedule Unknown Completed [facility] Hepatitis A Adult Unknown Com[facility] Hep B, Adol or Pedi Dosage Unknown Completed [facility] HPV Unknown Completed [facility] Meningococcal Vaccine Unknown Completed [facility] MMR Unknown Completed [facility] Polio (IPV/OPV) Unknown Completed [facility] TDAP Unknown Completed [facility] Varicella (varivax)(chicken pox) Unknown Completed [facility] Pneumococcal 7 Conjugate, PCV7 (Prevnar7) Unknown Completed [facility] SARS-COV-2 COVID-19 PFIZER VACCINE Unknown Completed [facility] HPV9 Unknown Completed [facility] DTAP Unknown Completed [facility] HIB 3 Dose Schedule Unknown Completed [facility] Hepatitis A Adult Unknown Com[facility] Hep B, Adol or Pedi Dosage Unknown Completed [facility] HPV Unknown Completed [facility] Meningococcal Vaccine Unknown Completed [facility] MMR Unknown Completed [facility] Polio (IPV/OPV) Unknown [facility] Unknown Completed [facility] Varicella (varivax)(chicken pox) Unknown Completed [facility] Pneumococcal 7 Conjugate, PCV7 (Prevnar7) Unknown Completed [facility] SARS-COV-2 COVID-19 PFIZER VACCINE Unknown Completed [facility] HPV9 Unknown Completed [facility] DTAP Unknown Completed [facility] HIB 3 Dose Schedule Unknown Completed [facility] Hepatitis A Adult Unknown Com[facility] Hep B, Adol or Pedi Dosage Unknown Completed [facility] HPV Unknown Completed [facility] Meningococcal Vaccine Unknown Completed [facility] MMR Unknown Completed [facility] Polio (IPV/OPV) Unknown [facility] Unknown Completed [facility] Varicella (varivax)(chicken pox) Unknown Completed [facility] Pneumococcal 7 Conjugate, PCV7 (Prevnar7) Unknown Completed [facility] SARS-COV-2 COVID-19 PFIZER VACCINE Unknown Completed [facility] DTAP Unknown Completed [facility] HIB 3 Dose Schedule Unknown Completed [facility] Hepatitis A Adult Unknown Com[facility] Hep B, Adol or Pedi Dosage Unknown Completed [facility] HPV Unknown Completed [facility] Meningococcal Vaccine Unknown Completed [facility] MMR Unknown Completed [facility] Polio (IPV/OPV) Unknown [facility] Unknown Completed [facility] Varicella (varivax)(chicken pox) Unknown Completed [facility] Pneumococcal 7 Conjugate, PCV7 (Prevnar7) Unknown Completed [facility] SARS-COV-2 COVID-19 PFIZER VACCINE Unknown Completed [facility] HPV9 Unknown Completed [facility] HPV9 Unknown Completed [facility] DTAP Unknown Completed [facility] HIB 3 Dose Schedule Unknown Completed [facility] Hepatitis A Adult Unknown Com[facility] Hep B, Adol or Pedi Dosage Unknown Completed [facility] HPV Unknown Completed [facility] Meningococcal Vaccine Unknown Completed [facility] MMR Unknown Completed [facility] Polio (IPV/OPV) Unknown [facility] Unknown Completed [facility] Varicella (varivax)(chicken pox) Unknown Completed [facility] Pneumococcal 7 Conjugate, PCV7 (Prevnar7) Unknown Completed [facility] SARS-COV-2 COVID-19 PFIZER VACCINE Unknown Completed [facility] HPV9 Unknown Completed [facility] DTAP Unknown Completed [facility] HIB 3 Dose Schedule Unknown Completed [facility] Hepatitis A Adult Unknown Com[facility] Hep B, Adol or Pedi Dosage Unknown Completed [facility] HPV Unknown Completed [facility] Meningococcal Vaccine Unknown Completed [facility] MMR Unknown Completed [facility] Polio (IPV/OPV) Unknown [facility] Unknown Completed [facility] Varicella (varivax)(chicken pox) Unknown Completed [facility] Pneumococcal 7 Conjugate, PCV7 (Prevnar7) Unknown Completed [facility] SARS-COV-2 COVID-19 PFIZER VACCINE Unknown Completed [facility] HPV9 Unknown Completed [facility] DTAP Unknown Completed [facility] HIB 3 Dose Schedule Unknown Completed [facility] Hepatitis A Adult Unknown Com[facility] Hep B, Adol or Pedi Dosage Unknown Completed [facility] HPV Unknown Completed [facility] Meningococcal Vaccine Unknown Completed [facility] MMR Unknown Completed [facility] Polio (IPV/OPV) Unknown [facility] Unknown Completed [facility] Varicella (varivax)(chicken pox) Unknown Completed [facility] Pneumococcal 7 Conjugate, PCV7 (Prevnar7) Unknown Completed [facility] SARS-COV-2 COVID-19 PFIZER VACCINE Unknown Completed [facility] HPV9 Unknown Completed [facility] DTAP Unknown Completed [facility] HIB 3 Dose Schedule Unknown Completed [facility] Hepatitis A Adult Unknown Completed [facility] Hep B, Adol or Pedi Dosage Unknown Completed [facility] HPV Unknown Completed [facility] Meningococcal Vaccine Unknown Completed [facility] MMR Unknown Completed [facility] Polio (IPV/OPV) Unknown Completed [facility] TDAP Unknown Completed [facility] Varicella (varivax)(chicken pox) Unknown Completed [facility] Pneumococcal 7 Conjugate, PCV7 (Prevnar7) Unknown Completed [facility] SARS-COV-2 COVID-19 PFIZER VACCINE Unknown Completed [facility] HPV9 Unknown Completed [facility] Vital Signs Vital Name Observation Time Observation Value Comments S ource Heart rate 2023-12-16 05:06:00 60 /min [facility] Oxygen saturation in Arterial blood by Pulse oximetry 2023-12-16 05:06:00 100 /min [facility] Systolic blood pressure 2023-12-16 03:49:00 110 mm[Hg] [facility] hospital Diastolic blood pressure 2023-12-16 03:49:00 65 mm[Hg] [facility] hospital Body temperature 2023-12-16 03:49:00 36.78 Brittney [facility] Respiratory rate 2023-12-16 03:49:00 18 /min [facility] Body height 2023-12-16 03:49:00 170.2 cm [facility] Body weight 2023-12-16 03:49:00 60.328 kg [facility] BMI 2023-12-16 03:49:00 20.83 kg/m2 [facility] Systolic blood pressure 2023-12-10 14:57:00 121 mm[Hg] [facility] acute hospital Diastolic blood pressure 2023-12-10 14:57:00 72 mm[Hg] [facility] acute hospital Heart rate 2023-12-10 14:57:00 93 /min [facility] Body temperature 2023-12-10 14:57:00 36 Brittney [facility] Respiratory rate 2023-12-10 14:57:00 18 /min [facility] Body height 2023-12-10 14:57:00 172.7 cm [facility] Body weight 2023-12-10 14:57:00 58.423 kg [facility] BMI 2023-12-10 14:57:00 19.58 kg/m2 [facility] Systolic blood pressure 2023-11-05 16:01:00 112 mm[Hg] [facility] acute hospital Diastolic blood pressure 2023-11-05 16:01:00 73 mm[Hg] General acute hospital Heart rate 2023-11-05 16:01:00 106 /min [facility] Body temperature 2023-11-05 16:01:00 36.78 Brittney [facility] Respiratory rate 2023-11-05 16:01:00 16 /min [facility] Body height 2023-11-05 16:01:00 172.7 cm [facility] Body weight 2023-11-05 16:01:00 56.019 kg [facility] BMI 2023-11-05 16:01:00 18.78 kg/m2 [facility] Systolic blood pressure 2023-10-07 19:28:00 118 mm[Hg] [facility] acute hospital Diastolic blood pressure 2023-10-07 19:28:00 72 mm[Hg] [facility] acute hospital Heart rate 2023-10-07 19:28:00 107 /min [facility] Body temperature 2023-10-07 19:28:00 36.11 Brittney [facility] Respiratory rate 2023-10-07 19:28:00 18 /min [facility] Body height 2023-10-07 19:28:00 172.7 cm [facility] Body weight 2023-10-07 19:28:00 54.522 kg [facility] BMI 2023-10-07 19:28:00 18.28 kg/m2 [facility] Systolic blood pressure 2023-10-03 22:46:55 116 mm[Hg] [facility] acute hospital Diastolic blood pressure 2023-10-03 22:46:55 67 mm[Hg] General acute hospital Heart rate 2023-10-03 22:46:55 88 /min [facility] Body temperature 2023-10-03 22:46:55 37 Brittney [facility] Respiratory rate 2023-10-03 22:46:55 18 /min [facility] Oxygen saturation in Arterial blood by Pulse oximetry 2023-10-03 22:46:55 100 /min [facility] Body height 2023-10-03 19:59:00 172.7 cm [facility] Body weight 2023-10-03 19:59:00 56.564 kg [facility] BMI 2023-10-03 19:59:00 18.96 kg/m2 [facility] Systolic blood pressure 2023-09-30 15:32:00 127 mm[Hg] [facility] acute hospital Diastolic blood pressure 2023-09-30 15:32:00 80 mm[Hg] General acute hospital Heart rate 2023-09-30 15:32:00 109 /min [facility] Body temperature 2023-09-30 15:32:00 36.33 Brittney [facility] Body height 2023-09-30 15:32:00 175.3 cm [facility] Body weight 2023-09-30 15:32:00 54.25 kg [facility] BMI 2023-09-30 15:32:00 17.66 kg/m2 [facility] Systolic blood pressure 2023-09-27 20:32:00 108 mm[Hg] [facility] acute hospital Diastolic blood pressure 2023-09-27 20:32:00 62 mm[Hg] General acute hospital Heart rate 2023-09-27 20:32:00 56 /min [facility] Body temperature 2023-09-27 20:32:00 36.78 Brittney [facility] Respiratory rate 2023-09-27 20:32:00 16 /min [facility] Oxygen saturation in Arterial blood by Pulse oximetry 2023-09-27 20:32:00 100 /min [facility] Body height 2023-09-27 17:44:00 175.3 cm [facility] Body weight 2023-09-27 17:44:00 54.704 kg [facility] BMI 2023-09-27 17:44:00 17.81 kg/m2 [facility] Systolic blood pressure 2023-09-20 13:23:00 123 mm[Hg] [facility] acute hospital Diastolic blood pressure 2023-09-20 13:23:00 88 mm[Hg] General acute hospital Heart rate 2023-09-20 13:23:00 103 /min [facility] Body temperature 2023-09-20 13:15:00 36.56 Brittney [facility] Respiratory rate 2023-09-20 13:15:00 18 /min [facility] Body height 2023-09-20 13:15:00 170.2 cm [facility] Body weight 2023-09-20 13:15:00 54.205 kg [facility] BMI 2023-09-20 13:15:00 18.72 kg/m2 [facility] Systolic blood pressure 2023-01-16 16:16:00 118 mm[Hg] [facility] acute hospital Diastolic blood pressure 2023-01-16 16:16:00 84 mm[Hg] General acute hospital Heart rate 2023-01-16 16:16:00 80 /min [facility] Body temperature 2023-01-16 16:16:00 36.17 Brittney [facility] Respiratory rate 2023-01-16 16:16:00 18 /min [facility] Body height 2023-01-16 16:16:00 170.2 cm [facility] Body weight 2023-01-16 16:16:00 58.145 kg [facility] BMI 2023-01-16 16:16:00 20.08 kg/m2 [facility] Systolic blood pressure 2023-01-08 13:57:00 121 mm[Hg] General acute hospital Diastolic blood pressure 2023-01-08 13:57:00 84 mm[Hg] General acute hospital Heart rate 2023-01-08 13:57:00 80 /min [facility] Body temperature 2023-01-08 13:57:00 35.94 Brittney [facility] Respiratory rate 2023-01-08 13:57:00 18 /min [facility] Body height 2023-01-08 13:57:00 170.2 cm [facility] Body weight 2023-01-08 13:57:00 57.108 kg [facility] BMI 2023-01-08 13:57:00 19.72 kg/m2 [facility] Systolic blood pressure 2022-01-26 23:50:00 128 mm[Hg] General acute hospital Diastolic blood pressure 2022-01-26 23:50:00 85 mm[Hg] General acute hospital Heart rate 2022-01-26 23:50:00 83 /min [facility] Body temperature 2022-01-26 23:50:00 37.17 Brittney [facility] Respiratory rate 2022-01-26 23:50:00 18 /min [facility] Body weight 2022-01-26 23:50:00 58.514 kg [facility] Oxygen saturation in Arterial blood by Pulse oximetry 2022-01-26 23:50:00 100 /min [facility] acute hospital Systolic blood pressure 2022-01-11 15:00:00 123 mm[Hg] General acute hospital Diastolic blood pressure 2022-01-11 15:00:00 86 mm[Hg] General acute hospital Heart rate 2022-01-11 15:00:00 79 /min [facility] Body temperature 2022-01-11 15:00:00 36.28 Brittney [facility] Respiratory rate 2022-01-11 15:00:00 18 /min [facility] Body height 2022-01-11 15:00:00 170.2 cm [facility] Body weight 2022-01-11 15:00:00 63.617 kg [facility] BMI 2022-01-11 15:00:00 21.97 kg/m2 [facility] Body mass index (BMI) [Percentile] Per age and sex 2022-01-11 15:00:00 57.01 % [facility] acute hospital Systolic blood pressure 2021-12-15 13:33:00 124 mm[Hg] General acute hospital Diastolic blood pressure 2021-12-15 13:33:00 87 mm[Hg] General acute hospital Heart rate 2021-12-15 13:33:00 67 /min [facility] Body temperature 2021-12-15 13:33:00 36.5 Brittney [facility] Body weight 2021-12-15 13:33:00 62.415 kg [facility] Systolic blood pressure 2021-12-01 16:04:00 123 mm[Hg] General acute hospital Diastolic blood pressure 2021-12-01 16:04:00 86 mm[Hg] General acute hospital Heart rate 2021-12-01 16:04:00 74 /min [facility] Body temperature 2021-12-01 16:04:00 36.83 Brittney [facility] Respiratory rate 2021-12-01 16:04:00 18 /min [facility] Body weight 2021-12-01 16:04:00 61.961 kg [facility] Systolic blood pressure 2021-11-01 14:59:00 135 mm[Hg] General acute hospital Diastolic blood pressure 2021-11-01 14:59:00 87 mm[Hg] General acute hospital Heart rate 2021-11-01 14:59:00 79 /min [facility] Body temperature 2021-11-01 14:59:00 36.5 Brittney [facility] Respiratory rate 2021-11-01 14:59:00 18 /min [facility] Body height 2021-11-01 14:59:00 170.2 cm [facility] Body weight 2021-11-01 14:59:00 63.305 kg [facility] BMI 2021-11-01 14:59:00 21.86 kg/m2 [facility] Body mass index (BMI) [Percentile] Per age and sex 2021-11-01 14:59:00 56.44 % [facility] Procedures Procedure Date / Time Performed Performing Clinicia n Source ADC CLC OR LCC ONLY - WET PREP 2023-12-16 04:17:00 Jay Jean [facility] POCT URINALYSIS 2023-11-05 16:13:00 Venus Valenzuela [facility] SCANNED LAB RESULTS 2023-10-31 16:08:28 Doctor U alejandro, [place] [facility] FIRST TRIMESTER ULTRASOUND 2023-10-09 13:22:00 Venus Valenzuela [facility] POCT URINALYSIS 2023-10-07 19:31:00 Venus Valenzuela [facility] [facility] BASIC METABOLIC PANEL (NA, K, CL, CO2, GLUCOSE, BUN, CREATININE, CA) 2023-10-03 21:35:00 Brooks Lucas [facility] CBC WITH DIFF 2023-10-03 21:35:00 Brooks Lucas [facility] URINALYSIS 2023-10-03 21:35:00 Brooks Lucas [facility] HB ABO GROUPING 2023-10-03 21:35:00 Brooks Lucas [facility] US FIRST TRIMESTER LESS THAN 14 WEEKS 2023-10-03 21:10:03 Brooks Lucas [facility] URINALYSIS 2023-09-27 20:26:00 Forrest Galvan [facility] LIPASE 2023-09-27 19:42:00 Forrest Galvan [facility] COMP. METABOLIC PANEL (73619) 2023-09-27 19:42:00 Forrest Galvan [facility] CBC WITH DIFF 2023-09-27 19:42:00 Forrest Galvan [facility] INFLUENZA A/B RSV COVID NAAT 2023-09-27 19:37:00 Forrest Galvan [facility] HB ECG ROUTINE & RHYTHM STRIP 2023-09-27 19:31:34 Forrest Galvan [facility] POCT URINALYSIS W/O SPECIFIC GRAVITY 2023-09-20 13:15:00 Venus Valenzuela [facility] POCT TEST 2023-09-20 13:14:00 Diana Valenzuela [facility] CONSENT/REFUSAL FOR DIAGNOSIS AND TREATMENT 2023-04-10 14:57:50 Doctor Unassigned, [place] [facility] PATIENT FINANCIAL POLICY 2023-01-08 13:47:28 Doctor Unassigned, [place] [facility] REFERRAL- REQUEST/RESPONSE 2022-04-10 06:01:00 Doctor Unassigned, [place] [facility] RAPID STREP SCREEN FOR GROUP A 2022-01-27 00:50:00 Billy Munoz [facility] NOTICE OF PRIVACY PRACTICES 2022-01-26 23:44:34 Doctor Unassigned, [place] [facility] POCT TEST 2022-01-11 15:01:00 Jaime Cesar [facility] DISCLOSURE AND CONSENT MEDICAL & SURGICAL PROCEDURES - FEMALM 2022-01-11 06:01:00 Doctor Unassigned, [place] [facility] POCT TEST 2021-12-01 16:51:00 Sa jamaal Pro [facility] CBC WITH DIFF 2021-12-01 16:48:00 [facility] (HPV 9V) VACCINE 2021-11-01 15:33:30 Gray Cesar [facility] POCT TEST 2021-11-01 15:20:00 Jaime Cesar [facility] Encounters Start Date/Time End Date/Time Encounter Type Admission Type Attending Clinicians Care Facility Care Department Encounter ID Source 2023-12-16 00:25:39 Outpatient X [facility] [id number] [facility] 2024-01-01 13:00:00 2024-01-01 13:00:00 Outpatient R [facility] [id number] [facility] 2023-12-18 00:00:00 2023-12-18 12:49:17 Telephone Venus Valenzuela [facility] OPERATOR [facility] 1.2.840.114 350.1.13.10 4.2.7.2.686 [id number] [facility] 2023-12-18 00:00:00 2023-12-18 12:15:41 Nurse Triage Janie Zavala Chessica T [facility] 1.2.840.114 350.1.13.10 4.2.7.2.686 [id number] [facility] 2023-12-15 22:35:00 2023-12-16 00:10:00 Outpatient X JAY JEAN VIEN [facility] ALYCIA [id number] [facility] 2023-12-15 22:35:00 2023-12-16 00:10:00 Emergency Jay [facility] 1.2.840.114 350.1.13.10 4.2.7.2.686 [id number] [facility] 2023-12-10 10:00:00 2023-12-10 10:23:34 Outpatient R VENUS VALENZUELA [facility] [id number] [facility] 2023-12-10 10:00:00 2023-12-10 10:23:34 Routine Visit Venus Valenzuela [facility] [employer] OPERATOR [facility] 1.2.840.114 350.1.13.10 4.2.7.2.686 [id number] 107 [id number] [facility] 2023-11-22 09:00:00 2023-11-22 11:00:13 Outpatient MEHRAN VAUGHAN [facility] [id number] [facility] 2023-11-22 09:00:00 2023-11-22 11:00:13 Telemedici ne Visit Yasmine Colin, Karolyn Salastha [facility] T[facility] OPERATOR [facility] & CHILD [facility] 1.2.840.114 350.1.13.10 4.2.7.2.686 [id number] 107 [id number] [facility] 2023-11-05 11:00:00 2023-11-05 11:45:11 Outpatient R GRAY CESAR [facility] [id number] [facility] 2023-11-05 11:00:00 2023-11-05 11:45:11 Routine Visit Gray Cesar [facility] BO[facility] T[employer] OPERATOR [facility] & CHILD [facility] 1.2.840.114 350.1.13.10 4.2.7.2.686 [id number] 107 [id number] [facility] 2023-09-20 00:00:00 2023-10-26 18:23:30 Patient Secure Msg Venus Valenzuela [facility] OPERATOR [facility] & CHILD [facility] 1.2.840.114 350.1.13.10 4.2.7.2.686 [id number] 107 [id number] [facility] 2023-10-15 13:30:00 2023-10-15 13:30:00 Outpatient P [facility] [id number] [facility] 2023-10-10 00:00:00 2023-10-10 06:52:33 Case Management Venus Valenzuela [facility] [employer] OPERATOR [facility] & CHILD [facility] 1..840.114 350.1.13.10 4.2.7.2.686 [id number] 107 [id number] [facility] 2023-10-09 08:00:00 2023-10-09 08:22:07 Outpatient R HENRIETTA DURAN [facility] [id number] [facility] 2023-10-09 08:00:00 2023-10-09 08:22:07 Manager Credit Collections Visit Ultrasound, Lorenza Jacksonouveli darlin Luna [facility] T[employer] OPERATOR [facility]ILD [facility] 1.2.840.114 350.1.13.10 4.2.7.2.686 [id number] [facility] 2023-10-07 14:30:00 2023-10-07 14:45:00 Routine Visit Gray Cesar [facility] BO[facility] T[employer] OPERATOR [facility] & CHILD [facility] 1.2.840.114 350.1.13.10 4.2.7.2.686 [id number] 107 [id number] [facility] 2023-10-07 14:30:00 2023-10-07 14:30:00 Outpatient R GRAY CESAR [facility] [id number] [facility] 2023-10-04 00:00:00 2023-10-04 09:15:30 Telephone Venus Valenzuela [facility] [employer] OPERATOR [facility] CHILD [facility] 1.2.840.114 350.1.13.10 4.2.7.2.686 [id number] 107 [id number] [facility] 2023-10-04 00:00:00 2023-10-04 09:09:54 Case Management Venus Valenzuela [facility] [employer] OPERATOR [facility] & CHILD [facility] 1.2.840.114 350.1.13.10 4.2.7.2.686 [id number] 107 [id number] [facility] 2023-10-03 15:01:00 2023-10-03 17:55:00 Emergency X BROOKS LUCAS [facility] ERT [id number] [facility] 2023-10-03 15:01:00 2023-10-03 17:55:00 Emergency Brooks Lucas [facility] 1.2.840.114 350.1.13.10 4.2.7.2.686 [id number] [facility] 2023-10-03 00:00:00 2023-10-03 14:11:05 Telephone Venus Valenzuela [facility] [employer] OPERATOR [facility] & CHILD [facility] 1.0.114 350.1.13.10 4.2.7.2.686 [id number] [facility] 2023-09-30 10:30:00 2023-09-30 11:26:52 Outpatient R CECILIA VINCENT FARANAK [facility] [id number] [facility] 2023-09-30 10:30:00 2023-09-30 11:26:52 Routine Visit Provider, Cecilia Bah [facility] T[employer] OPERATOR [facility] & [facility]ILD [facility] 1..114 350.1.13.10 4.2.7.2.686 [id number] 107 [id number] [facility] 2023-09-27 12:46:00 2023-09-27 17:01:00 Emergency X FORREST GALVAN [facility] ERT [id number] [facility] 2023-09-27 12:46:00 2023-09-27 17:01:00 Emergency Forrest Galvan T [facility] 1..114 350.1.13.10 4.2.7.2.686 [id number] [facility] 2023-09-24 00:00:00 2023-09-24 14:55:54 Telephone Venus Valenzuela [facility] [employer] OPERATOR [facility]ILD [facility] 1..114 350.1.13.10 4.2.7.2.686 [id number] 107 [id number] [facility] 2023-09-24 00:00:00 2023-09-24 06:54:53 Telephone Venus Valenzuela [facility] [employer] OPERATOR [facility] & [facility]ILD [facility] 1.0.114 350.1.13.10 4.2.7.2.686 [id number] 107 [id number] [facility] 2023-09-23 00:00:00 2023-09-23 13:34:52 Telephone Venus Valenzuela [facility] [employer] OPERATOR [facility] & [facility]ILD [facility] 1.2840.114 350.1.13.10 4.2.7.2.686 [id number] 107 [id number] [facility] 2023-09-20 08:30:00 2023-09-20 09:12:41 Outpatient R VENUS VALENZUELA [facility] [id number] [facility] 2023-09-20 08:30:00 2023-09-20 09:12:41 Initial Visit Venus Valenzuela [facility] BO[facility] T[employer] OPERATOR [facility]ILD [facility] 1.0.114 350.1.13.10 4.2.7.2.686 [id number] 107 [id number] [facility] 2023-09-17 00:00:00 2023-09-17 16:53:40 Telephone Venus Valenzuela [facility] BO[employer] T[employer] OPERATOR [facility] CHILD [facility] 1..114 350.1.13.10 4.2.7.2.686 [id number] 107 [id number] [facility] 2023-07-16 07:45:00 2023-07-16 07:45:00 Outpatient R VENUS VALENZUELA [facility] [id number] [facility] 2023-04-10 09:00:00 2023-04-10 09:00:00 Outpatient R VENUS VALENZUELA [facility] [id number] [facility] 2023-04-10 00:00:00 2023-04-10 00:00:00 Orders Only Doctor Unassigned, [place] [facility] 1.840.114 350.1.13.10 4.2.7.2.686 [id number] [facility] 2023-02-13 08:30:00 2023-02-13 08:30:00 Outpatient R FRANCAHaily VENUS [facility] [id number] [facility] 2023-01-16 10:00:00 2023-01-16 10:53:02 Outpatient R FRANCAHaily VENUS [facility] [id number] [facility] 2023-01-16 10:00:00 2023-01-16 10:53:02 Office Visit Venus Valenzuela [facility] BOILING TUB OPERATOR [facility] & CHILD [facility] 1.2.840.114 350.1.13.10 4.2.7.2.686 [id number] 107 [id number] [facility] 2023-01-16 00:00:00 2023-01-16 00:00:00 Telephone Venus Valenzuela [facility] BOILING TUB OPERATOR [facility] & CHILD [facility] 1.2.840.114 350.1.13.10 4.2.7.2.686 [id number] 107 [id number] [facility] 2023-01-11 00:00:00 2023-01-11 00:00:00 Case Management Francahaily Venus [facility] 1.2.840.114 350.1.13.10 4.2.7.2.686 [id number] 107 [id number] [facility] 2023-01-08 07:45:00 2023-01-08 08:38:36 Outpatient R FRANCAHaily VENUS [facility] [id number] [facility] 2023-01-08 07:45:00 2023-01-08 08:38:36 Office Visit Venus Valenzuela [facility] BOILING TUB OPERATOR [facility] CHILD [facility] 1.2.840.114 350.1.13.10 4.2.7.2.686 [id number] 107 [id number] [facility] 2023-01-08 00:00:00 2023-01-08 00:00:00 Orders Only Doctor Unassigned, [place] [facility] 1.2.840.114 350.1.13.10 4.2.7.2.686 [id number] [facility] 2022-11-15 10:03:46 2022-11-15 10:03:46 Outpatient [facility] [id number] Fazal Han 2022-11-01 09:30:00 2022-11-01 09:30:00 Outpatient R GRAY CESAR [facility] [id number] [facility] 2022-10-11 11:34:22 2022-10-11 11:34:22 Outpatient [facility] [id number] Fazal Han 2022-09-26 08:06:16 2022-09-26 08:06:16 Outpatient [facility] [id number] Fazal Han 2022-04-18 10:15:00 2022-04-18 10:15:00 Outpatient CHICO MILLER DOROTHY JAQUEZ [id number] Dorothy Cannon 2022-04-10 00:00:00 2022-04-10 00:00:00 Orders Only Doctor Unassigned, [place] [facility] 1.2.840.114 350.1.13.10 4.2.7.2.686 [id number] [facility] 2022-04-04 00:00:00 2022-04-04 00:00:00 Telephone Wisam Nash [facility] 1.2.840.114 350.1.13.10 4.2.7.2.686 [id number] [facility] 2022-03-13 14:45:00 2022-03-13 14:45:00 Outpatient VENUS GARRIDO [facility] [id number] [facility] 2022-02-22 09:30:00 2022-02-22 09:30:00 Outpatient R GRAY CESAR [facility] [id number] [facility] 2022-01-31 08:30:00 2022-01-31 08:30:00 Outpatient R [facility] [id number] [facility] 2022-01-26 17:50:00 2022-01-26 19:40:00 [facility] [id number] 2022-01-26 17:50:00 2022-01-26 19:40:00 Emergency Billy Munoz [facility] 1.840.114 350.1.13.10 4.2.7.2.686 [id number] [facility] 2022-01-26 00:00:00 2022-01-26 00:00:00 Orders Only Doctor Unassigned, [place] [facility] 1.84.114 350.1.13.10 4.2.7.2.686 [id number] [facility] 2022-01-11 09:00:00 2022-01-11 09:42:13 Outpatient R GRAY CESAR [facility] [id number] [facility] 2022-01-11 09:00:00 2022-01-11 09:42:13 Office Visit Gray Cesar [facility] BOIL[facility] TUB OPERATOR [facility] 1.840.114 350.1.13.10 4.2.7.2.686 [id number] 107 [id number] [facility] 2022-01-11 00:00:00 2022-01-11 00:00:00 Orders Only Doctor Unassigned, [place] [facility] 1.84.114 350.1.13.10 4.2.7.2.686 [id number] [facility] 2021-12-15 08:15:00 2021-12-15 09:00:02 Outpatient R GRAY CESAR [facility] [id number] [facility] 2021-12-15 08:15:00 2021-12-15 09:00:02 Office Visit Gray Cesar [facility] BO[facility] T[facility] OPERATOR [facility] & CHILD [facility] 1.2.840.114 350.1.13.10 4.2.7.2.686 [id number] 107 [id number] [facility] 2021-12-15 00:00:00 2021-12-15 00:00:00 Letter (Out) Gray Cesar [facility] BOIL[facility] T[employer] OPERATOR [facility]ILD [facility] 1.2.840.114 350.1.13.10 4.2.7.2.686 [id number] 107 [id number] [facility] 2021-12-01 11:00:00 2021-12-01 11:26:38 Office Visit Provider, Ludy Espinoza [facility] BO[facility] T[employer] OPERATOR [facility]ILD [facility] 1.2.840.114 350.1.13.10 4.2.7.2.686 [id number] 107 [id number] [facility] 2021-12-01 11:00:00 2021-12-01 11:26:38 Outpatient R LUDY PRO SARAH [facility] [id number] [facility] 2021-11-01 09:45:00 2021-11-01 10:55:01 Outpatient R GRAY CESAR [facility] [id number] [facility] 2021-11-01 09:45:00 2021-11-01 10:55:01 Office Visit Gray Cesar Roshunda R [facility] BO[facility] T[employer] OPERATOR [facility]ILD [facility] 1.2.840.114 350.1.13.10 4.2.7.2.686 [id number] 107 [id number] [facility] 2021-11-01 09:45:00 2021-11-01 10:55:01 Outpatient R GRAY CESAR [facility] [id number] [facility] 2021-11-01 00:00:00 2021-11-01 00:00:00 Orders Only Doctor Unassigned, [place] [facility] 1.84.114 350.1.13.10 4.2.7.2.686 [id number] [facility] 2021-11-01 00:00:00 2021-11-01 00:00:00 Letter (Out) Gray Cesar [facility] BOILING TUB OPERATOR [facility] CHILD [facility] 1..840.114 350.1.13.10 4.2.7.2.686 [id number] 107 [id number] [facility] 2021-10-06 00:00:00 2021-10-06 00:00:00 Telephone Felicitas Thayer [facility] BOILING TUB OPERATOR [facility] CHILD [facility] 1.840.114 350.1.13.10 4.2.7.2.686 [id number] 107 [id number] [facility] 2021-08-24 10:00:00 2021-08-24 10:00:00 Outpatient R [facility] [id number] [facility] 2021-08-01 09:45:00 2021-08-01 09:45:00 Outpatient R FELICITAS THAYER [facility] [id number] [facility] 2021-08-01 09:45:00 2021-08-01 09:45:00 Outpatient R FELICITAS THAYER [facility] [id number] [facility] 2021-08-01 09:45:00 2021-08-01 09:45:00 Office Visit Felicitas Thayer [facility] BOILING TUB OPERATOR [facility] CHILD [facility] 1..840.114 350.1.13.10 4.2.7.2.686 [id number] 107 [id number] [facility] 2021-08-01 09:45:00 2021-08-01 09:36:07 Outpatient FELICITAS MANTILLA [facility] [id number] [facility] 2021-06-06 10:30:00 2021-06-06 11:00:00 Office Visit Sammi Roberson [facility] 1.2.840.114 350.1.13.10 4.2.7.2.686 [id number] [facility] 2021-06-06 10:30:00 2021-06-06 10:30:00 Outpatient R SAMMI ROBERSON [facility] [id number] [facility] 2021-06-06 00:00:00 2021-06-06 00:00:00 Letter (Out) Sammi Roberson [facility] 1.2.840.114 350.1.13.10 4.2.7.2.686 [id number] [facility] 2021-06-01 10:00:00 2021-06-01 10:11:01 Outpatient FELICITAS MANTILLA [facility] [id number] [facility] 2021-06-01 10:00:00 2021-06-01 10:11:01 Nurse Visit Visit, [facility] Nurse Felicitas Thayer [facility] BOILING TUB OPERATOR [facility] CHILD [facility] 1.2.840.114 350.1.13.10 4.2.7.2.686 [id number] 107 [id number] [facility] 2021-06-01 00:00:00 2021-06-01 00:00:00 Letter (Out) Felicitas Thayer [facility] BOILING TUB OPERATOR [facility] CHILD [facility] 1.2.840.114 350.1.13.10 4.2.7.2.686 [id number] 107 [id number] [facility] 2021-05-31 10:00:00 2021-05-31 10:00:00 Outpatient R FELICITAS THAYER [facility] [id number] [facility] 2021-05-10 13:30:00 2021-05-10 13:30:00 Outpatient R SAMMI ROBERSON [facility] [id number] [facility] 2021-03-08 09:30:00 2021-03-08 09:54:18 Outpatient R FELICITAS THAYER [facility] [id number] [facility] 2021-03-08 09:30:00 2021-03-08 09:45:00 [facility] Felicitas Thayer [facility] BOILING TUB OPERATOR [facility] CHILD [facility] 1..840.114 350.1.13.10 4.2.7.2.686 [id number] 107 [id number] [facility] 2021-03-08 09:30:00 2021-03-08 09:30:00 Outpatient R [facility] [id number] [facility] 2021-03-08 00:00:00 2021-03-08 00:00:00 Letter (Out) Gray Cesar [facility] 1..840.114 350.1.13.10 4.2.7.2.686 [id number] 107 [id number] [facility] 2021-02-17 15:15:00 2021-02-17 15:15:00 Outpatient R GRAY CESAR [facility] [id number] [facility] 2021-01-30 14:00:00 2021-01-30 14:00:00 Outpatient R GRAY CESAR [facility] [id number] [facility] 2021-01-30 00:00:00 2021-01-30 00:00:00 Telephone Felicitas Thayer [facility] ..840.114 350.1.13.10 4.2.7.2.686 [id number] 107 [id number] [facility] 2020-12-14 12:54:16 2020-12-14 13:13:22 Nurse Visit Visit, [facility] Nurse Felicitas Thayer [facility] BOILING TUB OPERATOR [facility] & CHILD [facility] 1.2.840.114 350.1.13.10 4.2.7.2.686 [id number] 107 [id number] [facility] 2020-12-14 13:00:00 2020-12-14 13:00:00 Outpatient R [facility] [id number] [facility] 2020-12-14 00:00:00 2020-12-14 00:00:00 Letter (Out) Felicitas Thayer [facility] [employer] OPERATOR [facility]ILD [facility] 1.2.840.114 350.1.13.10 4.2.7.2.686 [id number] 107 [id number] [facility] 2020-11-11 00:00:00 2020-11-11 00:00:00 Telephone Felicitas Thayer [facility] BOIL[employer] T[employer] OPERATOR [facility] 1.2.840.114 350.1.13.10 4.2.7.2.686 [id number] 107 [id number] [facility] 2020-11-08 15:23:54 2020-11-08 15:37:08 Manager Credit Collections Visit Lab, LbRm[facility] Felicitas Thayer [facility] [employer] OPERATOR [facility] 1.2.840.114 350.1.13.10 4.2.7.2.686 [id number] 107 [id number] [facility] 2020-11-08 15:00:00 2020-11-08 15:00:00 Outpatient R FELICITAS THAYER [facility] [id number] [facility] 2020-11-08 00:00:00 2020-11-08 00:00:00 Telephone Felicitas Thayer [facility] [employer] OPERATOR [facility] 1.2.840.114 350.1.13.10 4.2.7.2.686 [id number] 107 [id number] [facility] 2020-11-01 00:00:00 2020-11-01 00:00:00 Telephone Felicitas Thayer [facility] [employer] OPERATOR [facility]ILD [facility] 1.2.840.114 350.1.13.10 4.2.7.2.686 [id number] 107 [id number] [facility] 2020-11-01 00:00:00 2020-11-01 00:00:00 Telephone Felicitas Thayer [facility] [employer] T[employer] OPERATOR [facility]ILD [facility] 1.2.840.114 350.1.13.10 4.2.7.2.686 [id number] 107 [id number] [facility] 2020-10-31 10:27:51 2020-10-31 11:15:25 Office Visit Felicitas Thayer [facility] [employer] OPERATOR 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 1.2.840.114 350.1.13.10 4.2.7.2.686 [id number] 107 [id number] [facility] 2020-10-31 10:30:00 2020-10-31 10:30:00 Outpatient R THAYER, FELICITAS [facility] [id number] [facility] 2020-10-31 00:00:00 2020-10-31 00:00:00 Orders Only Doctor Unassigned, [place] [facility] 1.2.840.114 [id number] [facility] 2020-09-21 13:00:00 2020-09-21 13:00:00 Outpatient R [facility] [id number] [facility] 2020-09-21 13:00:00 2020-09-21 13:00:00 Outpatient R GRAY CESAR [facility] [id number] [facility] 2020-07-25 08:10:00 2020-07-25 08:10:00 Outpatient [facility] [id number] [facility] 2020-07-25 08:10:00 2020-07-25 08:10:00 Outpatient R MEG LOWE [facility] [id number] [facility] 2020-07-07 13:00:00 2020-07-07 13:00:00 Outpatient R [facility] [id number] [facility] 2020-06-29 13:15:00 2020-06-29 13:15:00 Outpatient R GRAY CESAR [facility] [id number] [facility] 2020-06-25 11:30:00 2020-06-25 11:30:00 Outpatient R SHARON BONDS [facility] [id number] [facility] 2020-06-15 14:15:00 2020-06-15 14:15:00 Outpatient R FELICITAS THAYER [facility] [id number] [facility] 2020-04-14 13:00:00 2020-04-14 13:00:00 Outpatient R [facility] [id number] [facility] 2020-01-21 14:30:00 2020-01-21 14:30:00 Outpatient R FELICITAS THAYER [facility] [id number] [facility] 2020-01-13 13:00:00 2020-01-13 13:00:00 Outpatient R FELICITAS THAYER [facility] [id number] [facility] 2019-10-21 13:00:00 2019-10-21 13:00:00 Outpatient FELICITAS MANTILLA [facility] [id number] [facility] 2019-07-29 13:30:00 2019-07-29 13:30:00 Outpatient Chivo [facility] [id number] [facility] 2019-05-06 15:15:00 2019-05-06 15:15:00 Outpatient FELICITAS MANTILLA [facility] [id number] [facility] 2019-05-06 13:15:00 2019-05-06 13:15:00 Outpatient FELICITAS MANTILLA [facility] [id number] [facility] Results Test Description Test Time Test Comments Results Result Co mments Source [facility] [id number] 16:08:28Ordered by an unspecified provider.[facility]PO[facility] URINALYS[facility] W SPECIFIC [id number] 19:31:00* Test Item Value Reference Range Interpretation Comme nts POCT U SP GRAV (test code = 3255) . 1.005-1.025 POCT PH U (test code = 3254) . 5-8 POCT U LEUK EST (test code = 3263) . Negative - N egative POCT U NIT (test code = 3262) . Negative - Negati ve POCT U PROT (test code = 3259) trace Negative - Negat krystal POCT U GLU (test code = 3256) neg Negative - Negati ve POCT U KETONE (test code = 3258) . Negative - Neg ative POCT U UROBILI (test code = 3260) . 0.2-1 POCT U BILI (test code = 3261) . Negative - Negat krystal POCT U BLD (test code = 3257) . Negative - Negati ve POCT U COLOR (test code = 3266) . POCT U APPEAR (test code = 3267) . [facility] METABOLIC PANEL (NA, K, CL, CO2, GLUCOSE, BUN, CREATININE, CA)2023-10-03 22:09:17* Test Item Value Reference Range Interpretation Comme nts NA (test code = 2187966139) 138 mmol/L 135-145 K (test code = 2491303788) 3.9 3.5-5.0 CL (test code = 0356512441) 105 mmol/L 98-108 CO2 TOTAL (test code = 9291714963) 24 mmol/L 23-31 AGAP (test code = 2452037375) 9 2-16 BUN (test code = 9062142430) 6 mg/dL 7-23 L GLUCOSE (test code = 4503595030) 97 mg/dL 70-110 CREATININE (test code = 2160-0) 0.44 mg/dL 0.50-1.04 L CALCIUM (test code = 6842173327) 8.8 mg/dL 8.6-10.6 eGFR (test code = 66269-6) 142.2 mL/min/1.73m2 CKD-EPI eGFR (2020). Assuming creatinine has been stable day-to-day for at least three months, the eGFR indicates Category G1 (>= 90 mL/min/1.73 m2) Lab Interpretation (test code = 74044-2) Abnormal [facility] Center[facility] WITH [id number] 21:57:37* Test Item Value Reference Range Interpretation Comme nts WBC (test code = 6690-2) 8.19 4.30-11.10 RBC (test code = 789-8) 3.84 3.93-5.25 L HGB (test code = 718-7) 11.9 g/dL 11.6-15.0 HCT (test code = 4544-3) 34.0 % 35.7-45.2 L MCV (test code = 787-2) 88.5 fL 80.6-95.5 MCH (test code = 785-6) 31.0 pg 25.9-32.8 MCHC (test code = 786-4) 35.0 g/dL 31.6-35.1 RDW-SD (test code = 42736-1) 43.1 fL 39.0-49.9 RDW-CV (test code = 788-0) 13.3 % 12.0-15.5 PLT (test code = 777-3) 153 166-358 L MPV (test code = 71813-3) 12.1 fL 9.5-12.9 NRBC/100 WBC (test code = 0543602336) 0.0 0.0-10.0 NRBC x10^3 (test code = 2187490967) See_Comment [Automated Degreeda ge] The system which generated this result transmitted reference range: 10*3/?L. The reference range was not used to interpret this result as normal/abnormal. GRAN MAT (NEUT) % (test code = 770-8) 72.7 % IMM GRAN % (test code = 5110050490) 0.40 % LYMPH % (test code = 736-9) 22.7 % MONO % (test code = 5905-5) 3.5 % EOS % (test code = 713-8) 0.2 % BASO % (test code = 706-2) 0.5 % GRAN MAT x10^3(ANC) (test code = 2971916699) 5.95 10*3/uL 1.88-7.09 IMM GRAN x10^3 (test code = 4195282455) 0.03 10*3/uL 0.00-0.06 LYMPH x10^3 (test code = 731-0) 1.86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
--- NOTE | 2023-12-18 14:39 | RAD REPORT ---
EXAM:OB Limited . CLINICAL HISTORY: with abdominal pain. ABD CRAMPING, TECHNIQUE: Limited OB ultrasound performed. FINDINGS: Single live intrauterine gestation is identified with heart rate of 146 BPM. Estimated gestational ag e is 21 weeks 4 days, MAY 04/25/2024. Placenta is posterior without abruption. Amniotic fluid is qualitatively within normal range. Cervix appears closed measuring approximately 3 cm. No acute abnormality seen. IMPRESSION: Single live intrauterine gestation as detailed above. No acute abnormality seen.
--- NOTE | 2023-12-18 14:53 | EDPHYS ---
Physician Documentation [facility] Name: Anna Chiang Age: 18 yrs Sex: Female : 2005 Arrival Date: 12/18/2023 Time: 13:11 Bed IW10 Private MD: ED Physician Michael Schuster HPI: 12/17 13:30 This 18 yrs old Black Female presents to ER via Ambulatory with complaints of Abdominal cp Cramping - Preg 23wks. 13:30 The patient presents to the emergency department with abdominal pain, of the right side cp abdomen, that started this morning, described as crampy. The estimated gestational age is 23 weeks. course: care: private OB physician, Leakage of Fluid: none appreciated. Associated signs and symptoms: Pertinent positives: nausea. 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 - Infectious Disease History:: Denies. - Social history:: Smoking status: Patient denies any tobacco usage or history of. ROS: 13:33 Constitutional: Negative for body aches, chills, fever, poor PO intake, cp 13:33 Eyes: Negative for injury, pain, redness, and discharge, cp 13:33 Respiratory: Negative for cough, shortness of breath, wheezing, 13:33 Abdomen/GI: Positive for abdominal pain, nausea, Negative for vomiting, diarrhea, constipation, 13:33 : Negative for urinary symptoms, flank pain, vaginal bleeding, leakage of fluids, 13:33 Neuro: Negative for altered mental status, dizziness, headache, weakness, 13:33 All other systems are negative, Exam: 13:35 Constitutional: The patient appears in no acute distress, alert, awake, non-toxic, well cp developed, well nourished, uncomfortable, 13:35 Head/Face: Normocephalic, atraumatic. cp 13:35 Eyes: Periorbital structures: appear normal, Conjunctiva: normal, no exudate, no injection, Lids and lashes: appear normal, bilaterally, 13:35 ENT: External ear(s): are unremarkable, Nose: is normal, Mouth: Lips: moist, Oral mucosa: pink and intact, moist, Posterior pharynx: Airway: no evidence of obstruction, patent, 13:35 Chest/axilla: Inspection: normal, 13:35 Cardiovascular: Rate: normal, Rhythm: regular, 13:35 Respiratory: the patient does not display signs of respiratory distress, Respirations: normal, no use of accessory muscles, no retractions, labored breathing, is not present, Breath sounds: are clear throughout, no decreased breath sounds, no stridor, no wheezing, 13:35 Abdomen/GI: Inspection: gravid appearance, Palpation: soft, in all quadrants, mild abdominal tenderness, in the right upper quadrant, right lower quadrant and left lower quadrant, rebound tenderness, is not appreciated, involuntary guarding, is not appreciated, 13:35 Back: CVA tenderness, is absent, Vital Signs: 13:20 BP 128 / 79; Pulse 98; Resp 17; Temp 97.8; Pulse Ox 100% ; Weight 60.33 kg; Height 5 ll1 ft. 7 in. ; Pain 8/10; 13:20 Body Mass Index 20.83 (60.33 kg, 170.18 cm) ll1 13:20 Pain Scale: Adult ll1 MDM: 13:20 Medical Screening Exam initiated cp 13:35 Differential diagnosis: uti, pre-term delivery, non-specific abdominal pain. cp 14:50 Data reviewed: vital signs, nurses notes, radiologic studies, ultrasound. ED course: cp VSS. US results reviewed. Patient left ED prior to discussion of results and blood draw. 12/17 13:26 Order name: US OB Limited; Complete Time: 14:42 cp 12/17 14:42 Interpretation: Report reviewed. cp 12/17 13:26 Order name: NPO; Complete Time: 15:19 cp Administered Medications: 15:19 CANCELLED (Patient Eloped): ns 0.9% 1000 ml IV at 1000 ml once; to be given as a bolus bp over 60 minutes 15:19 Not Given (Patient Eloped): [id number] mg IM once bp 15:19 Not Given (Patient Eloped): ondansetron 4 mg IVP once; over 2 minutes bp Disposition Summary: 12/18/23 14:52 Discharge Ordered Notes: Location: Home cp Problem: new cp Symptoms: have improved cp Condition: Stable cp Diagnosis - Abdominal pain, unspecified cp - Other specified related conditions, second trimester cp Followup: cp - With: Private Physician - When: 1 - 2 days - Reason: Recheck today's complaints Discharge Instructions: - Discharge Summary Sheet cp - Abdominal Pain During cp - Second Trimester of cp Forms: - Medication Reconciliation Form cp - Antibiotic Education cp - Prescription Opioid Use cp - Patient Portal Instructions cp - Leadership Thank You Letter cp Signatures: Dispatcher [employer] EDMS Michael Lovett PA PA cp Cristian Bonilla, REMY RN bp Anton Appiah RN RN ll1 Corrections: (The following items were deleted from the chart) 13:27 13:26 ABO/RH TYPING+BB.LAB.BRZ ordered. EDMS EDMS 13:27 13:26 BASIC METABOLIC PANEL+C.LAB.BRZ ordered. EDMS EDMS 13:27 13:26 CBC+H.LAB.BRZ ordered. EDMS EDMS 13:27 13:26 Test, Urine+UC.LAB.BRZ ordered. EDMS EDMS 13:27 13:26 QUANTITATIVE HCG+C.LAB.BRZ ordered. EDMS EDMS 13:27 13:26 Urinalysis+U.LAB.BRZ ordered. EDMS EDMS 13:27 13:26 LIPASE+C.LAB.BRZ ordered. EDMS EDMS 13:27 13:26 HEPATIC FUNCTION+C.LAB.BRZ ordered. EDMS EDMS 13:27 13:27 OB Limited+US.RAD.BRZ ordered. EDMS EDMS 15:19 13:26 IV Saline Lock ordered. cp bp 15:19 13:26 Labs collected and sent ordered. cp bp 15:19 13:26 NS 0.9% IV 1000 ml IV at 1000 ml once; to be given as a bolus over 60 minutes bp ordered. cp
--- NOTE | 2023-12-18 14:53 | ER ---
Nurse's Notes [facility] Name: Anna Chiang Age: 18 yrs Sex: Female : 2005 Arrival Date: 12/18/2023 Time: 13:11 Bed IW10 Private MD: Diagnosis: Abdominal pain, unspecified;Other specified related conditions, second trimester Presentation: 12/17 13:20 Chief complaint: Patient states: 23 weeks , G1, P0. Abdominal pains since ll1 Saturday, seen at [facility], no specific findings. Abdominal pain again today, denies vaginal bleeding. Coronavirus screen: Client denies travel out of the [place] in the last 14 days. At this time, the client does not indicate any symptoms associated with coronavirus-19. Ebola Screen: Patient denies travel to an Ebola-affected area in the 21 days before illness onset. Initial Sepsis Screen: Does the patient meet any 2 criteria? No. Patient's initial sepsis screen is negative. Does the patient have a suspected source of infection? No. Patient's initial sepsis screen is negative. Risk Assessment: Do you want to hurt yourself or someone else? Patient reports no desire to harm self or others. Onset of symptoms was December 15, 2023. 13:20 Method Of Arrival: Ambulatory ll1 13:20 Acuity: NAZIA 3 ll1 Triage Assessment: 13:22 General: Appears in no apparent distress. Behavior is calm, cooperative, appropriate ll1 for age. Pain: Complains of pain in R sided abdominal pain. GI: Reports lower abdominal pain, upper abdominal pain. 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 - Infectious Disease History:: Denies. - Social history:: Smoking status: Patient denies any tobacco usage or history of. Screenin:[facility] ED Fall Risk Assessment (Adult) History of falling in the last 3 months, bp including since admission No falls in past 3 months (0 pts) Confusion or Disorientation No (0 pts) Intoxicated or Sedated No (0 pts) Impaired Gait No (0 pts) Mobility Assist Device Used No (0 pt) Altered Elimination No (0 pt) Score/Fall Risk Level 0 - 2 = Low Risk Oriented to surroundings. Abuse screen: Denies threats or abuse. Denies injuries from another. Nutritional screening: No deficits noted. Tuberculosis screening: No symptoms or risk factors identified. Assessment: 14:34 Reassessment: Called pt from jeff. No answer. mb9 15:17 Reassessment: PT D/C WITHOUT DISCHARGE PACKET. bp Vital Signs: 13:20 BP 128 / 79; Pulse 98; Resp 17; Temp 97.8; Pulse Ox 100% ; Weight 60.33 kg; Height 5 ll1 ft. 7 in. ; Pain 8/10; 13:20 Body Mass Index 20.83 (60.33 kg, 170.18 cm) ll1 13:20 Pain Scale: Adult ll1 ED Course: 13:13 Patient arrived in ED. mg5 13:20 Michael Lovett PA is PHCP. cp 13:20 Michael Schuster MD is Attending Physician. cp 13:22 Triage completed. ll1 13:22 Arm band placed on. ll1 14:05 US OB Limited In Process Unspecified. EDMS 14:33 Milla Maxwell, REMY is Primary Nurse. mb9 14:34 Patient's name was called from ER katina. No response. mb9 15:17 Patient has correct armband on for positive identification. Provided Education on: N/A. bp 15:17 No provider procedures requiring assistance completed. Patient did not have IV access bp during this emergency room visit. Administered Medications: 15:19 CANCELLED (Patient Eloped): ns 0.9% 1000 ml IV at 1000 ml once; to be given as a bolus bp over 60 minutes 15:19 Not Given (Patient Eloped): [id number] mg IM once bp 15:19 Not Given (Patient Eloped): ondansetron 4 mg IVP once; over 2 minutes bp Medication: 15:17 VIS not applicable for this client. bp Outcome: 14:52 Discharge ordered by MD. cp 15:17 Discharged to home ambulatory, bp 15:17 Condition: stable 15:17 Discharge instructions given to patient, Instructed on 15:19 Patient left the ED. bp Signatures: Dispatcher [employer] EDMS Rachell Michael, PA PA cp Irene, Cristian, RN RN bp Anton Appiah RN RN ll1 Alissa, Milla Lawler RN RN mb9 Carrol Salazar 5
[2023-12-18 16:32] VITALS: BP 128/79; TEMP 97.8; O2SAT 100
== END 2023-12-18 15:19 | disposition home or self-care (01) ==
LOC: ER 13:11
DX: O26.892 Other specified pregnancy related conditions, second trimester (principal); Z3A.23 23 weeks gestation of pregnancy
CPT/HCPCS: 76815; 99282

== ENCOUNTER 2024-04-13 | Emergency (ER) | payer OTHER ==
--- OUTSIDE RECORDS SUMMARY | 2024-04-13 00:09 | XMS REPORT | Continuity of Care Document ---
Author Name Unknown Address [address] [facility] [place] [address] [facility] Address [address] [facility] [place] [address] Care Team Providers Care Textile Technologist Name Role Phone PCP, PATIENT DOES NOT HAVE A Primary Care Physic CHANG Anaya Attending Clinician Unavailable VENUS VALENZUELA Attending Clinician Unavaila sudhir Cesar CHELLEPGray Attending Clinician + Christina Karine FLETCHER Attending Clinician SAUD ESTRADA Attending Clinician Radha SAUD Hendricks Attending Clinician Radha gene Estrada MD, Saud Chowdary Attending Clinician Popeye Sylvester MD Attending Clinician [phone] Anna Bajwa MD Attending Clinician [phone] SERGEY TELLES Attending Clinician Unavailje Alarcon, Ang-Mfm Attending Clinician UnavailSergey Baptiste MD Attending Clinician [phone] Venus Valenzuela CNM Attending Clinician [phone] SAMMI ROBERSON Attending Clinician Unavailable SAMMI ROBERSON Attending Clinician Unavailable Sammi Roberson MD Attending Clinician [phone] AKINGRAY CHANEL Attending Clinician Unavail able VIRGIL FRANCOIS Attending Clinician Un available 1, [facility] Attending Clinician Unavailab Virgil Hall MD Attending Clinician Israel Nguyen MD Attending Clinician Unavailable Lucas ALBERTO, Janie Luna Attending Clinician Unavaila sudhir JEAN, JAY LÓPEZ Attending Clinician Unavailable JAY JEAN Attending Clinician Unavailable Shahid JEFFERY, Jay López Attending Clinician [phone] MEHRAN PEREZ Attending Clinician Unavailable Yasmine Colin Attending Clinician UnavailMehran Hall MD Attending Clinician [phone] Venus Valenzuela CNM Attending Clinician [phone] BROOKS LUCAS Attending Clinician Unavailable BROOKS LUCAS Attending Clinician Unavailable CECILIA VINCENT Attending Clinician Unavailable CECILIA VINCENT Attending Clinician Unavailable Provider, Ang-Rmchp Temp Attending Clinician Radha vailable Cecilia Vincent MD Attending Clinician [phone] FORREST GALVAN Attending Clinician Unavailable Forrest Christie Attending Clinician [phone] Doctor Unassigned, [place] Attending Clinician U vaailCHICO Sanchez Attending Clinician Unavailable Saad JEFFERY, Wisam Attending Clinician [phone] BILLY MUNOZ Attending Clinician Unavailable Billy Hernandez Attending Clinician [phone] Gray Owens Attending Clinician + LUDY PRO Attending Clinician UnavailLUDY Scruggs Attending Clinician Unavailje e Provider, Ang-Rmchp Temp Attending Clinician Radha vailable Felicitas Roberts Attending Clinician + [phone] FELICITAS THAYER Attending Clinician Unavailab le Sree, Ang-Rmchp Nurse Attending Clinician Unava ilable Yulia, Ang-Rmchp Attending Clinician Unavailable MEG LOWE Attending Clinician Unavail able SHARON BONDS Attending Clinician Unavailable JAY JEAN Admitting Clinician Unavailable SAUD ESTRADA Admitting Clinician Radha Estrada MD, Saud Chowdary Admitting Clinician SAMMI ROBERSON Admitting Clinician Unavailable Sammi Roberson MD Admitting Clinician [phone] Jay Jean MD Admitting Clinician [phone] BROOKS LUCAS Admitting Clinician Unavailable Payers Payer Name Policy Type Policy Number Effective Date Expirati on Date Source [place] [place] [id number] 2023 00:00:00 [facility] [place] [id number] 2022 00:00:00 [employer] II [id number] 2018 00:00:00 Problems Condition Name Condition Details Condition Category Status Onset Date Resolution Date Last Treatment Date Treating Clinician Comments Source (normal spontaneou s vaginal delivery) (normal spontaneou s vaginal delivery) Disease Active 2-03 00:00: 00 [facility] Single live Single live Disease Active 2-03 00:00: 00 [facility] Obstetrica l laceration Obstetrica l laceration Disease Active 2-03 00:00: 00 [facility] Acute blood loss anemia Acute blood loss anemia Disease Active 2-03 00:00: 00 [facility] GBS (group B Streptococ cus carrier), +RV culture, currently GBS (group B Streptococ cus carrier), +RV culture, currently Disease Active 2-02 00:00: 00 [facility] 38 weeks gestation of 38 weeks gestation of Disease Active 2-01 00:00: 00 [facility] Poor growth affecting management of mother in third trimester Poor growth affecting management of mother in third trimester Disease Active 1-17 00:00: 00 [facility] 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- genetics 11/22/23 [facility] Sickle cell trait in mother affecting Sickle cell trait in mother affecting Disease Active 2023-03 0- 00:00: 00 [facility] Supervisio n of high risk , antepartum Supervisio n of high risk , antepartum Disease Active 09-29 00:00: 00 [facility] False positive HIV serology False positive HIV serology Disease Active 09-19 00:00: 00 [facility] Nausea and vomiting during Nausea and vomiting during Disease Active 09-19 00:00: 00 [facility] Anxiety and depression Anxiety and depression Disease Active 2021-03 1-15 00:00: 00 [facility] Attention deficit disorder Attention deficit disorder Disease Active 8- 00:00: 00 [facility] Asthma during Asthma during Disease Active 2012-03 2-17 00:00: 00 [facility] GBS (group B streptococ cus) UTI complicati ng GBS (group B streptococ cus) UTI complicati ng Disease Resolve d 09-23 00:00: 00 2024-04-05 00:00:00 2024-04-05 02:49:47 Overview: Formattin g of this note might be different from the original. Not treated as <10,000 [facility] Decreased platelet count Decreased platelet count Disease Resolve d 7 00:00: 00 2024-01-21 00:00:00 2024-01-21 10:47:28 [facility] Subchorion ic bleed Subchorion ic bleed Disease Resolve d 8- 00:00: 00 2023-12-10 00:00:00 2023-12-10 10:23:48 [facility] Headache in , antepartum , first trimester Headache in , antepartum , first trimester Disease Resolve d 7- 00:00: 00 2023-12-10 00:00:00 2023-12-10 10:23:50 [facility] Nausea and vomiting during Nausea and vomiting during Disease Resolve d 2024-0 7-19 00:00: 00 2023-12-10 00:00:00 2023-12-10 10:23:54 [facility] Initiation of OCP (BCP) Initiation of OCP (BCP) Disease Resolve d 2022-03 00:00: 00 2023-09-20 00:00:00 2023-09-20 08:28:06 [facility] Dysmenorrh ea Dysmenorrh ea Disease Resolve d 2022-03 00:00: 00 2023-09-20 00:00:00 2023-09-20 08:27:54 [facility] Irregular menstrual cycle Irregular menstrual cycle Disease Resolve d 2022-03 00:00: 00 2023-09-20 00:00:00 2023-09-20 08:27:55 [facility] Decreased thyroid stimulatin g hormone level Decreased thyroid stimulatin g hormone level Disease Resolve d 3-16 00:00: 00 2023-09-20 00:00:00 2023-09-20 08:40:23 [facility] Well woman exam Well woman exam Disease Resolve d 8-31 00:00: 00 2023-09-20 00:00:00 2023-09-20 08:27:57 [facility] Encounter for IUD insertion Encounter for IUD insertion Disease Resolve d 2021-03- 00:00: 00 2023-01-08 00:00:00 2023-01-08 12:13:28 [facility] Vaginal discharge Vaginal discharge Disease Resolve d 2020-0 4-28 00:00: 00 2023-01-08 00:00:00 2023-01-08 08:09:20 [facility] Other general counseling and advice for contracept krystal management Other general counseling and advice for contracept krystal management Disease Resolve d 2019-0 3-04 00:00: 00 2023-01-08 00:00:00 2023-01-08 08:09:31 [facility] Encounter for Nexplanon removal Encounter for Nexplanon removal Disease Resolve d 2019-0 3-04 00:00: 00 2019-10-21 00:00:00 2019-10-21 14:00:24 [facility] Breakthrou gh bleeding on Nexplanon Breakthrou gh bleeding on Nexplanon Disease Resolve d 2018-03 00:00: 00 2019-10-21 00:00:00 2019-10-21 14:00:22 [facility] Allergies, Adverse Reactions, Alerts Allergy Name Allergy Type Status Severity Reaction(s) Onset Date Inactive Date Treating Clinician Comments Source PENICILL IN DRUG INGREDI Active Anaphylaxis 04-05 00:00: 00 [facility] AMPICILL IN DRUG INGREDI Active Anaphylaxis 04-05 00:00: 00 [facility] Ampicill in Propensi ty to adverse reaction s Active Anaphylaxis 04-05 00:00: 00 [facility] Penicill in Propensi ty to adverse reaction s Active Anaphylaxis 04-05 00:00: 00 [facility] CODEINE DRUG INGREDI Active Unknown-Cmnt 2022-03 00:00: 00 [facility] Codeine Propensi ty to adverse reaction s Active Unknown - See comments 2022-03 00:00: 00 [facility] PENICILL AMINE DRUG INGREDI Active SOB 09-22 00:00: 00 [facility] Penicill amine Propensi ty to adverse reaction s Active Shortness of Breath 09-22 00:00: 00 [facility] Social History Social Habit Start Date Stop Date Quantity Comments Source ASSERTION 2023-07-25 00:00:00 [facility] SDOH Alcohol Std Drinks [facility] History SDOH Alcohol Binge [facility] History SDOH Alcohol Comment [facility] Alcoholic beverage intake 2024-04-05 00:00:00 2024-04-05 00:00:00 Lifetime non-drinker (finding) [facility] History of Social function 2023-11-05 00:00:00 2023-11-05 00:00:00 [facility] Alcohol intake 2023-01-16 00:00:00 2023-01-16 00:00:00 Lifetime non-drinker (finding) [facility] Exposure to SARS-CoV-2 (event) 2022-01-16 00:00:00 2022-01-26 17:49:[address] [facility] Tobacco use and exposure 2021-11-01 00:00:00 2021-11-01 00:00:00 Smokeless tobacco non-user [facility] History SDOH Alcohol Frequency 2018-09-22 00:00:00 2018-09-22 00:00:[address] [facility] Sex assigned at 2003 00:00:00 2003 00:00:00 [facility] Smoking Status Start Date Stop Date Source Never smoked tobacco [facility] Medications Ordered Medication Name Filled Medication Name Start Date Stop Date Current Medication? Ordering Clinician Indication Dosage Frequency Signature (SIG) Comments Components Source ibuprofen (IBU) tablet 600 mg 04-06 02:30: 00 04-07 17:33 :13 No 600mg 600 mg, Oral, Q8HA1, First dose on 04/05/24 at 2030, Until Discontinu ed, Routine [facility] [id number] fum-folic 27 mg iron- 1 mg folic tablet 04-06 00:00: 00 Yes [id number] 1{tbl} Take 1 tablet by mouth in the morning. [facility] docusate 100 mg capsule 04-06 00:00: 00 Yes [id number] 200mg Take 2 capsules by mouth once daily as needed for Constipati on. [facility] ferrous sulfate 325 mg (65 mg iron) tablet 04-06 00:00: 00 Yes [id number] 325mg Take 1 tablet by mouth in the morning. [facility] ibuprofen 800 mg tablet 04-06 00:00: 00 Yes [id number] 800mg Take 1 tablet by mouth every 8 (eight) hours as needed (pain). Take with food or milk. [facility] acetaminoph en (TYLENOL) tablet 650 mg 04-05 23:45: 00 04-07 17:33 :13 No 650mg 650 mg, Oral, Q8H, First dose on 04/05/24 at 1745, Until Discontinu ed, Routine [facility] rho(D) immune globulin (RHOPHYLAC) injection 300 mcg 04-05 23:31: 42 04-07 17:33 :13 No 300ug [facility] diphenhydrA MINE (BENADRYL) tablet 25 mg 04-05 23:31: 38 04-07 17:33 :13 No 25mg [facility] ondansetron (ZOFRAN (PF)) injection 4 mg 04-05 23:31: 38 04-07 17:33 :13 No 4mg [facility] simethicone (GAS RELIEF (SIMETHICON E)) chewable tablet 160 mg 04-05 23:31: 38 04-07 17:33 :13 No 160mg 160 mg, Oral, PC+HSPRN, Starting on 04/05/24 at 1731, Until 04/07/24 at 1133, Routine, Gas [facility] docusate (COLACE) capsule 200 mg 04-05 23:31: 38 04-07 17:33 :13 No 200mg 200 mg, Oral, QDAILYPRN, Starting on 04/05/24 at 1731, Until 04/07/24 at 1133, Routine, Constipati on [facility] magnesium hydroxide (MILK OF MAGNESIA) 400 mg/5 mL suspension 30 mL 04-05 23:31: 38 04-07 17:33 :13 No 30mL [facility] benzocaine- menthol (DERMOPLAST ) 20-0.5 % topical spray 04-05 23:31: 38 04-07 17:33 :13 No Topical, PRN, Starting on 04/05/24 at 1731, Until 04/07/24 at 1133, Routine, Perineum discomfort [facility] metoclopram sameera HCl (REGLAN) injection 10 mg 04-05 21:15: 00 04-05 20:40 :00 No 10mg 10 mg, Slow IV Push, ONCE, 1 dose, On 04/05/24 at 1515, Routine [facility] ondansetron (ZOFRAN (PF)) injection 4 mg 04-05 18:15: 00 04-05 15:53 :00 No 4mg 4 mg, Slow IV Push, ONCE, On 04/05/24 at 1215, For 1 dose, Please give medication over 2-5 minutes. [facility] ondansetron (ZOFRAN (PF)) injection 4 mg 04-05 12:15: 00 04-05 11:23 :00 No 4mg 4 mg, Slow IV Push, ONCE, On 04/05/24 at 0615, For 1 dose, Please give medication over 2-5 minutes. [facility] ropivacaine 0.2 % (NAROPIN (PF)) epidural infusion 04-05 12:02: 00 04-06 12:41 :35 No Epidural, CONTINUOUS PRN, Starting on 04/05/24 at 0602, Until 04/06/24 at 0641, Routine, Intra-op [facility] lidocaine-e pinephrine (XYLOCAINE W/EPINEPHRI NE) 1.5 %-1:200,000 injection 04-05 12:02: 00 04-06 12:41 :35 No Epidural, ONCE INTRA PROCEDURE, Starting on 04/05/24 at 0602, Until 04/06/24 at 0641, Routine, Intra-op [facility] lidocaine 1% (XYLOCAINE) 100 mg/10 mL (1 %) injection 04-05 11:54: 00 04-06 12:41 :35 No Slow IV Push, ONCE INTRA PROCEDURE, Starting on 04/05/24 at 0554, Until 04/06/24 at 0641, Routine, Intra-op [facility] vancomycin (VANCOCIN) 1,500 mg in NaCl 0.9% (NS) 500 mL VIAL-MATE IV piggyback 04-05 10:45: 00 04-05 13:08 :16 No 1500mg 1,500 mg, IV Piggyback, ONCE, 1 dose, On 04/05/24 at 0445, Administer over 90 Minutes, 500 mL, Reason for Anti-Infec tive: Documented Infection, Documented Infection Site: Pelvic, Duration of Therapy: Other (see Comments), Is patient currently on Dialysis? No Dialysis [facility] Oxytocin in Normal Saline 30 unit/500 mL IV infusion Soln 04-05 10:15: 00 04-05 23:31 :41 No 2mU/min 2-40 eric-unit s/min (2-40 mL/hr), IV Infusion, CONTINUOUS , Starting on 04/05/24 at 0415, Infuse IV through a controlled infusion pump at a proximal port on the peripheral IV line. Start at 2 eric-unit s/min and increase by 2 eric-unit s/min every 20 minutes according to oxytocin policy 7.11.52. Oxytocin may be increased to 30 milliunits when ordered by a 3rd or 4th year resident. 3rd or 4th year resident must document a note that the increase to 30 milliunits was discussed with faculty. Oxytocin may be increased to 40 milliunits when ordered by a 3rd or 4th year resident. 3rd or 4th year resident must document a note that the increase to 40 milliunits was discussed with faculty. Max 40 eric-unit s/min. Keep oxytocin infusion at a rate that maintains adequate contractio ns. Incrementa l dosage of oxytocin is determined by uterine and response; therefore the RN may increase or decrease the dosage by 2mu or discontinu e oxytocin based on maternal and assessment . [facility] sodium citrate-cit justin acid (BICITRA) 500-334 mg/5 mL solution 30 mL 04-05 05:52: 45 04-05 11:44 :00 No 30mL 30 mL, Oral, PRE-PROCED URE ONCE, 1 dose, Starting on 04/04/24 at 2352, Until 04/05/24 at 0544, Routine, Surgery/Pr ocedure [facility] lactated ringers IV infusion 250 mL 04-05 05:52: 45 04-05 23:31 :41 No 250mL at 999 mL/hr, 250 mL, IV Infusion, PRN - SEE INSTRUCTIO NS, Starting on 04/04/24 at 2352, Until 04/05/24 at 1731, Routine [facility] [id number] IV infusion 1,000 mL 04-05 05:52: 45 04-05 23:31 :41 No 1000mL at 1-75 mL/hr, IV Infusion, TITRATE, Starting on 04/04/24 at 2352, Until 04/05/24 at 1731, Routine [facility] acetaminoph en (TYLENOL) tablet 650 mg 10-02 20:45: 00 10-02 21:36 :00 No 650mg 650 mg, Oral, ONCE, 1 dose, On Mehnaz 10/03/23 at 1545, [facility] NaCl 0.9% (NS) bolus infusion 1,000 mL 09-26 19:00: 00 09-26 21:10 :00 No 1000mL at 999 mL/hr, 1,000 mL, IV Infusion, ONCE, 1 dose, On Sat09/27/23 at 1400, [facility] ondansetron (ZOFRAN (PF)) injection 4 mg 09-26 18:30: 00 09-26 19:45 :00 No 4mg 4 mg, Slow IV Push, ONCE, 1 dose, On Sat09/27/23 at 1330, [facility] proMETHazin e 25 mg tablet 09-19 00:00: 00 04-06 00:00 :00 No [id number] 25mg Take 1 tablet by mouth every 4 (four) hours as needed for Nausea and Vomiting (N/V). [facility] metroNIDAZO LE 500 mg tablet 2022-03 00:00: 00 01-19 05:59 :00 No [id number] 500mg Take 1 tablet by mouth in the morning and 1 tablet in the evening. Do all this for 7 days. [facility] levonorgest rel-ethinyl estradiol (LEVLEN, 28,) 0.15-0.03 mg per tablet 2022-03 00:00: 00 09-19 00:00 :00 No [id number] 1{tbl} Take 1 tablet by mouth in the morning. [facility] busPIRone 10 mg tablet 11-20 00:00: 00 09-19 00:00 :00 No 10mg Take 1 tablet by mouth in the morning and 1 tablet at noon and 1 tablet in the evening. [facility] FLUoxetine 20 mg capsule - 00:00: 00 09-19 00:00 :00 No TAKE 1 CAPSULE(20 MG) BY MOUTH 1 TIME EACH DAY [facility] azithromyci n 500 mg tablet 2021-03 00:00: 00 02-01 05:59 :00 No [id number] 500mg Take 1 tablet by mouth in the morning for 5 days. [facility] levonorgest reL (KYLEENA) IUD 1 Device 2021-03 23:30: 00 01-11 22:44 :00 No [id number] 1{devic e} [facility] ibuprofen 800 mg tablet 12-01 00:00: 00 12-12 04:59 :00 No [id number] 800mg Take 1 tablet by mouth in the morning and 1 tablet at noon and 1 tablet in the evening. Take with meals. Do all this for 10 days. [facility] medroxyPROG ESTERone (DEPO-PROVE RA) injection 150 mg 8-31 15:45: 00 10-03 15:44 :00 No [id number] 150mg [facility] norgestimat e-ethinyl estradioL 0.18/0.215/ 0.25 mg-25 mcg tablet 5- 00:00: 00 01-08 00:00 :00 No [id number] 1{tbl} Take 1 tablet by mouth daily. [facility] metroNIDAZO LE 500 mg tablet 30 00:00: 00 01-08 00:00 :00 No [id number] 500mg Take 1 tablet by mouth 2 (two) times daily. [facility] Immunizations Ordered Immunization Name Filled Immunization Name Date Status Comments Source TDAP 2024-01-21 00:00:00 Completed HPV9 2021-11-01 00:00:[address] [facility] HPV9 2021-11-01 00:00:[address] [facility] HPV9 2021-11-01 00:00:[address] [facility] HPV9 2021-11-01 00:00:[address] [facility] HPV9 2021-11-01 00:00:[address] [facility] HPV9 2021-11-01 00:00:[address] [facility] HPV9 2021-11-01 00:00:[address] [facility] HPV9 2021-11-01 00:00:[address] [facility] HPV9 2021-11-01 00:00:[address] [facility] HPV9 2021-11-01 00:00:[address] [facility] HPV9 2021-11-01 00:00:[address] [facility] SARS-COV-2 COVID-19 PFIZER VACCINE 2020-07-25 00:00:[address] [facility] SARS-COV-2 COVID-19 PFIZER VACCINE 2020-07-25 00:00:[address] [facility] SARS-COV-2 COVID-19 PFIZER VACCINE 2020-07-25 00:00:[address] [facility] SARS-COV-2 COVID-19 PFIZER VACCINE 2020-07-25 00:00:[address] [facility] SARS-COV-2 COVID-19 PFIZER VACCINE 2020-07-25 00:00:[address] [facility] SARS-COV-2 COVID-19 PFIZER VACCINE 2020-07-25 00:00:[address] [facility] SARS-COV-2 COVID-19 PFIZER VACCINE 2020-07-25 00:00:[address] [facility] SARS-COV-2 COVID-19 PFIZER VACCINE 2020-07-25 00:00:[address] [facility] SARS-COV-2 COVID-19 PFIZER VACCINE 2020-07-25 00:00:[address] [facility] SARS-COV-2 COVID-19 PFIZER VACCINE 2020-07-25 00:00:[address] [facility] SARS-COV-2 COVID-19 PFIZER VACCINE 2020-07-25 00:00:[address] [facility] SARS-COV-2 COVID-19 PFIZER VACCINE 2020-06-25 00:00:[address] [facility] SARS-COV-2 COVID-19 PFIZER VACCINE 2020-06-25 00:00:[address] [facility] SARS-COV-2 COVID-19 PFIZER VACCINE 2020-06-25 00:00:[address] [facility] SARS-COV-2 COVID-19 PFIZER VACCINE 2020-06-25 00:00:[address] [facility] SARS-COV-2 COVID-19 PFIZER VACCINE 2020-06-25 00:00:[address] [facility] SARS-COV-2 COVID-19 PFIZER VACCINE 2020-06-25 00:00:[address] [facility] SARS-COV-2 COVID-19 PFIZER VACCINE 2020-06-25 00:00:[address] [facility] SARS-COV-2 COVID-19 PFIZER VACCINE 2020-06-25 00:00:[address] [facility] SARS-COV-2 COVID-19 PFIZER VACCINE 2020-06-25 00:00:[address] [facility] SARS-COV-2 COVID-19 PFIZER VACCINE 2020-06-25 00:00:[address] [facility] SARS-COV-2 COVID-19 PFIZER VACCINE 2020-06-25 00:00:[address] [facility] HPV9 2018-09-22 00:00:[address] [facility] HPV 2018-09-22 00:00:[address] [facility] HPV9 2018-09-22 00:00:[address] [facility] HPV 2018-09-22 00:00:[address] [facility] HPV9 2018-09-22 00:00:[address] [facility] HPV 2018-09-22 00:00:[address] [facility] HPV9 2018-09-22 00:00:[address] [facility] HPV 2018-09-22 00:00:[address] [facility] HPV9 2018-09-22 00:00:[address] [facility] HPV 2018-09-22 00:00:[address] [facility] HPV9 2018-09-22 00:00:[address] [facility] HPV 2018-09-22 00:00:[address] [facility] HPV9 2018-09-22 00:00:[address] [facility] HPV 2018-09-22 00:00:[address] [facility] HPV9 2018-09-22 00:00:[address] [facility] HPV 2018-09-22 00:00:[address] [facility] HPV9 2018-09-22 00:00:[address] [facility] HPV 2018-09-22 00:00:[address] [facility] HPV9 2018-09-22 00:00:[address] [facility] [facility] HPV 2018-09-22 00:00:[address] [facility] HPV9 2018-09-22 00:00:[address] [facility] HPV 2018-09-22 00:00:00 Completed Meningococcal Vaccine 2015-10-19 00:00:[address] [facility] TDAP 2015-10-19 00:00:[address] [facility] Meningococcal Vaccine 2015-10-19 00:00:[address] [facility] TDAP 2015-10-19 00:00:[address] [facility] Meningococcal Vaccine 2015-10-19 00:00:[address] [facility] TDAP 2015-10-19 00:00:[address] [facility] Meningococcal Vaccine 2015-10-19 00:00:[address] [facility] TDAP 2015-10-19 00:00:[address] [facility] Meningococcal Vaccine 2015-10-19 00:00:[address] [facility] TDAP 2015-10-19 00:00:[address] [facility] Meningococcal Vaccine 2015-10-19 00:00:[address] [facility] TDAP 2015-10-19 00:00:[address] [facility] Meningococcal Vaccine 2015-10-19 00:00:[address] [facility] TDAP 2015-10-19 00:00:[address] [facility] Meningococcal Vaccine 2015-10-19 00:00:[address] [facility] TDAP 2015-10-19 00:00:[address] [facility] Meningococcal Vaccine 2015-10-19 00:00:[address] [facility] TDAP 2015-10-19 00:00:[address] [facility] Meningococcal Vaccine 2015-10-19 00:00:[address] [facility] TDAP 2015-10-19 00:00:[address] [facility] Meningococcal Vaccine 2015-10-19 00:00:00 Completed TDAP 2015-10-19 00:00:00 Completed DTAP 2008-10-25 00:00:[address] [facility] DTAP 2008-10-25 00:00:[address] [facility] DTAP 2008-10-25 00:00:[address] [facility] DTAP 2008-10-25 00:00:[address] [facility] DTAP 2008-10-25 00:00:[address] [facility] DTAP 2008-10-25 00:00:[address] [facility] DTAP 2008-10-25 00:00:[address] [facility] DTAP 2008-10-25 00:00:[address] [facility] DTAP 2008-10-25 00:00:[address] [facility] DTAP 2008-10-25 00:00:[address] [facility] DTAP 2008-10-25 00:00:00 Completed MMR 2008-03-05 00:00:[address] [facility] MMR 2008-03-05 00:00:[address] [facility] MMR 2008-03-05 00:00:[address] [facility] MMR 2008-03-05 00:00:[address] [facility] MMR 2008-03-05 00:00:[address] [facility] MMR 2008-03-05 00:00:[address] [facility] MMR 2008-03-05 00:00:[address] [facility] MMR 2008-03-05 00:00:[address] [facility] MMR 2008-03-05 00:00:[address] [facility] MMR 2008-03-05 00:00:[address] [facility] MMR 2008-03-05 00:00:00 Completed Hepatitis A Adult 2008-01-02 00:00:[address] [facility] MMR 2008-01-02 00:00:[address] [facility] Hepatitis A Adult 2008-01-02 00:00:[address] [facility] MMR 2008-01-02 00:00:[address] [facility] Hepatitis A Adult 2008-01-02 00:00:[address] [facility] MMR 2008-01-02 00:00:[address] [facility] Hepatitis A Adult 2008-01-02 00:00:[address] [facility] MMR 2008-01-02 00:00:[address] [facility] Hepatitis A Adult 2008-01-02 00:00:[address] [facility] MMR 2008-01-02 00:00:[address] [facility] Hepatitis A Adult 2008-01-02 00:00:[address] [facility] MMR 2008-01-02 00:00:[address] [facility] Hepatitis A Adult 2008-01-02 00:00:[address] [facility] MMR 2008-01-02 00:00:[address] [facility] Hepatitis A Adult 2008-01-02 00:00:[address] [facility] MMR 2008-01-02 00:00:[address] [facility] Hepatitis A Adult 2008-01-02 00:00:[address] [facility] MMR 2008-01-02 00:00:[address] [facility] Hepatitis A Adult 2008-01-02 00:00:[address] [facility] MMR 2008-01-02 00:00:[address] [facility] Hepatitis A Adult 2008-01-02 00:00:00 Completed MMR 2008-01-02 00:00:00 Completed DTAP 2007-12-08 00:00:[address] [facility] HIB 3 Dose Schedule 2007-12-08 00:00:[address] [facility] Hep B, Adol or Pedi Dosage 2007-12-08 00:00:[address] [facility] Polio (IPV/OPV) 2007-12-08 00:00:[address] [facility] Varicella (varivax)(chicken pox) 2007-12-08 00:00:[address] [facility] Pneumococcal 7 Conjugate, PCV7 (Prevnar7) 2007-12-08 00:00:[address] [facility] DTAP 2007-12-08 00:00:[address] [facility] HIB 3 Dose Schedule 2007-12-08 00:00:[address] [facility] Hep B, Adol or Pedi Dosage 2007-12-08 00:00:[address] [facility] Polio (IPV/OPV) 2007-12-08 00:00:[address] [facility] Varicella (varivax)(chicken pox) 2007-12-08 00:00:[address] [facility] Pneumococcal 7 Conjugate, PCV7 (Prevnar7) 2007-12-08 00:00:[address] [facility] DTAP 2007-12-08 00:00:[address] [facility] HIB 3 Dose Schedule 2007-12-08 00:00:[address] [facility] Hep B, Adol or Pedi Dosage 2007-12-08 00:00:[address] [facility] Polio (IPV/OPV) 2007-12-08 00:00:[address] [facility] Varicella (varivax)(chicken pox) 2007-12-08 00:00:[address] [facility] Pneumococcal 7 Conjugate, PCV7 (Prevnar7) 2007-12-08 00:00:[address] [facility] DTAP 2007-12-08 00:00:[address] [facility] HIB 3 Dose Schedule 2007-12-08 00:00:[address] [facility] Hep B, Adol or Pedi Dosage 2007-12-08 00:00:[address] [facility] Polio (IPV/OPV) 2007-12-08 00:00:[address] [facility] Varicella (varivax)(chicken pox) 2007-12-08 00:00:[address] [facility] Pneumococcal 7 Conjugate, PCV7 (Prevnar7) 2007-12-08 00:00:[address] [facility] DTAP 2007-12-08 00:00:[address] [facility] HIB 3 Dose Schedule 2007-12-08 00:00:[address] [facility] Hep B, Adol or Pedi Dosage 2007-12-08 00:00:[address] [facility] Polio (IPV/OPV) 2007-12-08 00:00:[address] [facility] Varicella (varivax)(chicken pox) 2007-12-08 00:00:[address] [facility] Pneumococcal 7 Conjugate, PCV7 (Prevnar7) 2007-12-08 00:00:[address] [facility] DTAP 2007-12-08 00:00:[address] [facility] HIB 3 Dose Schedule 2007-12-08 00:00:[address] [facility] Hep B, Adol or Pedi Dosage 2007-12-08 00:00:[address] [facility] Polio (IPV/OPV) 2007-12-08 00:00:[address] [facility] Varicella (varivax)(chicken pox) 2007-12-08 00:00:[address] [facility] Pneumococcal 7 Conjugate, PCV7 (Prevnar7) 2007-12-08 00:00:[address] [facility] DTAP 2007-12-08 00:00:[address] [facility] HIB 3 Dose Schedule 2007-12-08 00:00:[address] [facility] Hep B, Adol or Pedi Dosage 2007-12-08 00:00:[address] [facility] Polio (IPV/OPV) 2007-12-08 00:00:[address] [facility] Varicella (varivax)(chicken pox) 2007-12-08 00:00:[address] [facility] Pneumococcal 7 Conjugate, PCV7 (Prevnar7) 2007-12-08 00:00:[address] [facility] DTAP 2007-12-08 00:00:[address] [facility] HIB 3 Dose Schedule 2007-12-08 00:00:[address] [facility] Hep B, Adol or Pedi Dosage 2007-12-08 00:00:[address] [facility] Polio (IPV/OPV) 2007-12-08 00:00:[address] [facility] Varicella (varivax)(chicken pox) 2007-12-08 00:00:[address] [facility] Pneumococcal 7 Conjugate, PCV7 (Prevnar7) 2007-12-08 00:00:[address] [facility] DTAP 2007-12-08 00:00:[address] [facility] HIB 3 Dose Schedule 2007-12-08 00:00:[address] [facility] Hep B, Adol or Pedi Dosage 2007-12-08 00:00:[address] [facility] Polio (IPV/OPV) 2007-12-08 00:00:[address] [facility] Varicella (varivax)(chicken pox) 2007-12-08 00:00:[address] [facility] Pneumococcal 7 Conjugate, PCV7 (Prevnar7) 2007-12-08 00:00:[address] [facility] DTAP 2007-12-08 00:00:[address] [facility] HIB 3 Dose Schedule 2007-12-08 00:00:[address] [facility] Hep B, Adol or Pedi Dosage 2007-12-08 00:00:[address] [facility] Polio (IPV/OPV) 2007-12-08 00:00:[address] [facility] Varicella (varivax)(chicken pox) 2007-12-08 00:00:[address] [facility] Pneumococcal 7 Conjugate, PCV7 (Prevnar7) 2007-12-08 00:00:[address] [facility] DTAP 2007-12-08 00:00:00 Completed HIB 3 Dose Schedule 2007-12-08 00:00:00 Completed Hep B, Adol or Pedi Dosage 2007-12-08 00:00:00 Completed Polio (IPV/OPV) 2007-12-08 00:00:00 Completed Varicella (varivax)(chicken pox) 2007-12-08 00:00:00 Completed Pneumococcal 7 Conjugate, PCV7 (Prevnar7) 2007-12-08 00:00:00 Completed DTAP 2006-09-30 00:00:[address] [facility] HIB 3 Dose Schedule 2006-09-30 00:00:[address] [facility] Hepatitis A Adult 2006-09-30 00:00:[address] [facility] MMR 2006-09-30 00:00:[address] [facility] Polio (IPV/OPV) 2006-09-30 00:00:[address] [facility] Varicella (varivax)(chicken pox) 2006-09-30 00:00:[address] [facility] Pneumococcal 7 Conjugate, PCV7 (Prevnar7) 2006-09-30 00:00:[address] [facility] DTAP 2006-09-30 00:00:[address] [facility] HIB 3 Dose Schedule 2006-09-30 00:00:[address] [facility] Hepatitis A Adult 2006-09-30 00:00:[address] [facility] MMR 2006-09-30 00:00:[address] [facility] Polio (IPV/OPV) 2006-09-30 00:00:[address] [facility] Varicella (varivax)(chicken pox) 2006-09-30 00:00:[address] [facility] Pneumococcal 7 Conjugate, PCV7 (Prevnar7) 2006-09-30 00:00:[address] [facility] DTAP 2006-09-30 00:00:[address] [facility] HIB 3 Dose Schedule 2006-09-30 00:00:[address] [facility] Hepatitis A Adult 2006-09-30 00:00:[address] [facility] MMR 2006-09-30 00:00:[address] [facility] Polio (IPV/OPV) 2006-09-30 00:00:[address] [facility] Varicella (varivax)(chicken pox) 2006-09-30 00:00:[address] [facility] Pneumococcal 7 Conjugate, PCV7 (Prevnar7) 2006-09-30 00:00:[address] [facility] DTAP 2006-09-30 00:00:[address] [facility] HIB 3 Dose Schedule 2006-09-30 00:00:[address] [facility] Hepatitis A Adult 2006-09-30 00:00:[address] [facility] MMR 2006-09-30 00:00:[address] [facility] Polio (IPV/OPV) 2006-09-30 00:00:[address] [facility] Varicella (varivax)(chicken pox) 2006-09-30 00:00:[address] [facility] Pneumococcal 7 Conjugate, PCV7 (Prevnar7) 2006-09-30 00:00:[address] [facility] DTAP 2006-09-30 00:00:[address] [facility] HIB 3 Dose Schedule 2006-09-30 00:00:[address] [facility] Hepatitis A Adult 2006-09-30 00:00:[address] [facility] MMR 2006-09-30 00:00:[address] [facility] Polio (IPV/OPV) 2006-09-30 00:00:[address] [facility] Varicella (varivax)(chicken pox) 2006-09-30 00:00:[address] [facility] Pneumococcal 7 Conjugate, PCV7 (Prevnar7) 2006-09-30 00:00:[address] [facility] DTAP 2006-09-30 00:00:[address] [facility] HIB 3 Dose Schedule 2006-09-30 00:00:[address] [facility] Hepatitis A Adult 2006-09-30 00:00:[address] [facility] MMR 2006-09-30 00:00:[address] [facility] Polio (IPV/OPV) 2006-09-30 00:00:[address] [facility] Varicella (varivax)(chicken pox) 2006-09-30 00:00:[address] [facility] Pneumococcal 7 Conjugate, PCV7 (Prevnar7) 2006-09-30 00:00:[address] [facility] DTAP 2006-09-30 00:00:[address] [facility] HIB 3 Dose Schedule 2006-09-30 00:00:[address] [facility] Hepatitis A Adult 2006-09-30 00:00:[address] [facility] MMR 2006-09-30 00:00:[address] [facility] Polio (IPV/OPV) 2006-09-30 00:00:[address] [facility] Varicella (varivax)(chicken pox) 2006-09-30 00:00:[address] [facility] Pneumococcal 7 Conjugate, PCV7 (Prevnar7) 2006-09-30 00:00:[address] [facility] DTAP 2006-09-30 00:00:[address] [facility] HIB 3 Dose Schedule 2006-09-30 00:00:[address] [facility] Hepatitis A Adult 2006-09-30 00:00:[address] [facility] MMR 2006-09-30 00:00:[address] [facility] Polio (IPV/OPV) 2006-09-30 00:00:[address] [facility] Varicella (varivax)(chicken pox) 2006-09-30 00:00:[address] [facility] Pneumococcal 7 Conjugate, PCV7 (Prevnar7) 2006-09-30 00:00:[address] [facility] DTAP 2006-09-30 00:00:[address] [facility] HIB 3 Dose Schedule 2006-09-30 00:00:[address] [facility] Hepatitis A Adult 2006-09-30 00:00:[address] [facility] MMR 2006-09-30 00:00:[address] [facility] Polio (IPV/OPV) 2006-09-30 00:00:[address] [facility] Varicella (varivax)(chicken pox) 2006-09-30 00:00:[address] [facility] Pneumococcal 7 Conjugate, PCV7 (Prevnar7) 2006-09-30 00:00:[address] [facility] DTAP 2006-09-30 00:00:[address] [facility] HIB 3 Dose Schedule 2006-09-30 00:00:[address] [facility] Hepatitis A Adult 2006-09-30 00:00:[address] [facility] MMR 2006-09-30 00:00:[address] [facility] Polio (IPV/OPV) 2006-09-30 00:00:[address] [facility] Varicella (varivax)(chicken pox) 2006-09-30 00:00:[address] [facility] Pneumococcal 7 Conjugate, PCV7 (Prevnar7) 2006-09-30 00:00:[address] [facility] DTAP 2006-09-30 00:00:00 Completed HIB 3 Dose Schedule 2006-09-30 00:00:00 Completed Hepatitis A Adult 2006-09-30 00:00:00 Completed MMR 2006-09-30 00:00:00 Completed Polio (IPV/OPV) 2006-09-30 00:00:00 Completed Varicella (varivax)(chicken pox) 2006-09-30 00:00:00 Completed Pneumococcal 7 Conjugate, PCV7 (Prevnar7) 2006-09-30 00:00:00 Completed DTAP 2003 00:00:[address] [facility] HIB 3 Dose Schedule 2003 00:00:[address] [facility] Hep B, Adol or Pedi Dosage 2003 00:00:[address] [facility] Polio (IPV/OPV) 2003 00:00:[address] [facility] Pneumococcal 7 Conjugate, PCV7 (Prevnar7) 2003 00:00:[address] [facility] DTAP 2003 00:00:[address] [facility] HIB 3 Dose Schedule 2003 00:00:[address] [facility] Hep B, Adol or Pedi Dosage 2003 00:00:[address] [facility] Polio (IPV/OPV) 2003 00:00:[address] [facility] Pneumococcal 7 Conjugate, PCV7 (Prevnar7) 2003 00:00:[address] [facility] DTAP 2003 00:00:[address] [facility] HIB 3 Dose Schedule 2003 00:00:[address] [facility] Hep B, Adol or Pedi Dosage 2003 00:00:[address] [facility] Polio (IPV/OPV) 2003 00:00:[address] [facility] Pneumococcal 7 Conjugate, PCV7 (Prevnar7) 2003 00:00:[address] [facility] DTAP 2003 00:00:[address] [facility] HIB 3 Dose Schedule 2003 00:00:[address] [facility] Hep B, Adol or Pedi Dosage 2003 00:00:[address] [facility] Polio (IPV/OPV) 2003 00:00:[address] [facility] Pneumococcal 7 Conjugate, PCV7 (Prevnar7) 2003 00:00:[address] [facility] DTAP 2003 00:00:[address] [facility] HIB 3 Dose Schedule 2003 00:00:[address] [facility] Hep B, Adol or Pedi Dosage 2003 00:00:[address] [facility] Polio (IPV/OPV) 2003 00:00:[address] [facility] Pneumococcal 7 Conjugate, PCV7 (Prevnar7) 2003 00:00:[address] [facility] DTAP 2003 00:00:[address] [facility] HIB 3 Dose Schedule 2003 00:00:[address] [facility] Hep B, Adol or Pedi Dosage 2003 00:00:[address] [facility] Polio (IPV/OPV) 2003 00:00:[address] [facility] Pneumococcal 7 Conjugate, PCV7 (Prevnar7) 2003 00:00:[address] [facility] DTAP 2003 00:00:[address] [facility] HIB 3 Dose Schedule 2003 00:00:[address] [facility] Hep B, Adol or Pedi Dosage 2003 00:00:[address] [facility] Polio (IPV/OPV) 2003 00:00:[address] [facility] Pneumococcal 7 Conjugate, PCV7 (Prevnar7) 2003 00:00:[address] [facility] DTAP 2003 00:00:[address] [facility] HIB 3 Dose Schedule 2003 00:00:[address] [facility] Hep B, Adol or Pedi Dosage 2003 00:00:[address] [facility] Polio (IPV/OPV) 2003 00:00:[address] [facility] Pneumococcal 7 Conjugate, PCV7 (Prevnar7) 2003 00:00:[address] [facility] DTAP 2003 00:00:[address] [facility] HIB 3 Dose Schedule 2003 00:00:[address] [facility] Hep B, Adol or Pedi Dosage 2003 00:00:[address] [facility] Polio (IPV/OPV) 2003 00:00:[address] [facility] Pneumococcal 7 Conjugate, PCV7 (Prevnar7) 2003 00:00:[address] [facility] DTAP 2003 00:00:[address] [facility] HIB 3 Dose Schedule 2003 00:00:[address] [facility] Hep B, Adol or Pedi Dosage 2003 00:00:[address] [facility] Polio (IPV/OPV) 2003 00:00:[address] [facility] Pneumococcal 7 Conjugate, PCV7 (Prevnar7) 2003 00:00:[address] [facility] DTAP 2003 00:00:00 Completed HIB 3 Dose Schedule 2003 00:00:00 Completed Hep B, Adol or Pedi Dosage 2003 00:00:00 Completed Polio (IPV/OPV) 2003 00:00:00 Completed Pneumococcal 7 Conjugate, PCV7 (Prevnar7) 2003 00:00:00 Completed Hep B, Adol or Pedi Dosage 2003 00:00:[address] [facility] Hep B, Adol or Pedi Dosage 2003 00:00:[address] [facility] Hep B, Adol or Pedi Dosage 2003 00:00:[address] [facility] Hep B, Adol or Pedi Dosage 2003 00:00:[address] [facility] Hep B, Adol or Pedi Dosage 2003 00:00:[address] [facility] Hep B, Adol or Pedi Dosage 2003 00:00:[address] [facility] Hep B, Adol or Pedi Dosage 2003 00:00:[address] [facility] Hep B, Adol or Pedi Dosage 2003 00:00:[address] [facility] Hep B, Adol or Pedi Dosage 2003 00:00:[address] [facility] Hep B, Adol or Pedi Dosage 2003 00:00:[address] [facility] [facility] B, Adol or Pedi Dosage 2003 00:00:00 Completed HPV9 [address] Completed [facility] DTAP Unknown Completed [facility] HIB 3 Dose Schedule Unknown Completed [facility] Hepatitis A Adult [facility] [place] [facility], Adol or Pedi Dosage Unknown Completed [facility] HPV Unknown Completed [facility] Meningococcal Vaccine Unknown Completed [facility] MMR Unknown Completed [facility] Polio (IPV/OPV) Unknown Completed [facility] [place] TDAP Unknown Completed [facility] Varicella (varivax)(chicken pox) Unknown Completed [facility] Pneumococcal 7 Conjugate, PCV7 (Prevnar7) Unknown Completed [facility] SARS-COV-2 COVID-19 PFIZER VACCINE Unknown Completed [facility] DTAP Unknown Completed [facility] HIB 3 Dose Schedule Unknown Completed [facility] Hepatitis A Adult [facility], Adol or Pedi Dosage Unknown Completed [facility] HPV Unknown Completed [facility] Meningococcal Vaccine Unknown Completed [facility] MMR Unknown Completed [facility] Polio (IPV/OPV) Unknown Completed [facility] TDAP Unknown Completed [facility] Varicella (varivax)(chicken pox) Unknown Completed [facility] Pneumococcal 7 Conjugate, PCV7 (Prevnar7) Unknown Completed [facility] SARS-COV-2 COVID-19 PFIZER VACCINE Unknown Completed [facility] HPV9 [address] [facility] HPV9 [address]pleted [facility] DTAP Unknown Completed [facility] HIB 3 Dose Schedule Unknown Completed [facility] Hepatitis A Adult [facility], Adol or Pedi Dosage Unknown Completed [facility] HPV Unknown Completed [facility] Meningococcal Vaccine Unknown Completed [facility] MMR Unknown Completed [facility] Polio (IPV/OPV) [facility] Completed [facility] Varicella (varivax)(chicken pox) Unknown Completed [facility] Pneumococcal 7 Conjugate, PCV7 (Prevnar7) Unknown Completed [facility] SARS-COV-2 COVID-19 PFIZER VACCINE Unknown Completed [facility] HPV9 [address] [facility] DTAP Unknown Completed [facility] HIB 3 Dose Schedule Unknown Completed [facility] Hepatitis A Adult Unknown [facility], Adol or Pedi Dosage Unknown Completed [facility] HPV Unknown Completed [facility] Meningococcal Vaccine Unknown Completed [facility] MMR Unknown Completed [facility] Polio (IPV/OPV) Unknown Completed [facility] TDAP Unknown Completed [facility] Varicella (varivax)(chicken pox) Unknown Completed [facility] Pneumococcal 7 Conjugate, PCV7 (Prevnar7) Unknown Completed [facility] SARS-COV-2 COVID-19 PFIZER VACCINE Unknown Completed [facility] HPV9 [address] Completed [facility] DTAP Unknown Completed [facility] HIB 3 Dose Schedule Unknown Completed [facility] Hepatitis A Adult Unknown [facility], Adol or Pedi Dosage Unknown Completed [facility] HPV Unknown Completed [facility] Meningococcal Vaccine Unknown Completed [facility] MMR Unknown Completed [facility] Polio (IPV/OPV) Unknown Completed [facility] TDAP Unknown Completed [facility] Varicella (varivax)(chicken pox) Unknown Completed [facility] Pneumococcal 7 Conjugate, PCV7 (Prevnar7) Unknown Completed [facility] SARS-COV-2 COVID-19 PFIZER VACCINE Unknown Completed [facility] HPV9 Unknown Completed [facility] DTAP Unknown Completed [facility] HIB 3 Dose Schedule Unknown Completed [facility] Hepatitis A Adult Unknown [facility], Adol or Pedi Dosage Unknown Completed [facility] HPV Unknown Completed [facility] Meningococcal Vaccine Unknown Completed [facility] MMR Unknown Completed [facility] Polio (IPV/OPV) Unknown [facility] Unknown Completed [facility] Varicella (varivax)(chicken pox) Unknown Completed [facility] Pneumococcal 7 Conjugate, PCV7 (Prevnar7) Unknown Completed [facility] SARS-COV-2 COVID-19 PFIZER VACCINE Unknown Completed [facility] HPV9 [address]pleted [facility] DTAP Unknown Completed [facility] HIB 3 Dose Schedule Unknown Completed [facility] Hepatitis A Adult Unknown [facility], Adol or Pedi Dosage Unknown Completed [facility] HPV Unknown Completed [facility] Meningococcal Vaccine Unknown Completed [facility] MMR Unknown Completed [facility] Polio (IPV/OPV) Unknown Completed [facility] TDAP Unknown Completed [facility] Varicella (varivax)(chicken pox) Unknown Completed [facility] Pneumococcal 7 Conjugate, PCV7 (Prevnar7) Unknown Completed [facility] SARS-COV-2 COVID-19 PFIZER VACCINE Unknown Completed [facility] HPV9 [address] Completed [facility] DTAP Unknown Completed [facility] HIB 3 Dose Schedule Unknown Completed [facility] Hepatitis A Adult Unknown [facility], Adol or Pedi Dosage Unknown Completed [facility] HPV Unknown Completed [facility] Meningococcal Vaccine Unknown Completed [facility] MMR Unknown Completed [facility] Polio (IPV/OPV) Unknown Completed [facility] TDAP Unknown Completed [facility] Varicella (varivax)(chicken pox) Unknown Completed [facility] Pneumococcal 7 Conjugate, PCV7 (Prevnar7) Unknown Completed [facility] SARS-COV-2 COVID-19 PFIZER VACCINE Unknown Completed [facility] HPV9 [address]pleted [facility] DTAP Unknown Completed [facility] HIB 3 Dose Schedule Unknown Completed [facility] Hepatitis A Adult Unknown [facility], Adol or Pedi Dosage Unknown Completed [facility] HPV Unknown Completed [facility] Meningococcal Vaccine Unknown Completed [facility] MMR Unknown Completed [facility] Polio (IPV/OPV) Unknown [facility] Unknown Completed [facility] Varicella (varivax)(chicken pox) Unknown Completed [facility] Pneumococcal 7 Conjugate, PCV7 (Prevnar7) Unknown Completed [facility] SARS-COV-2 COVID-19 PFIZER VACCINE Unknown Completed [facility] HPV9 [address] Completed [facility] DTAP Unknown Completed [facility] HIB 3 Dose Schedule Unknown Completed [facility] Hepatitis A Adult Unknown [facility], Adol or Pedi Dosage Unknown Completed [facility] HPV Unknown Completed [facility] Meningococcal Vaccine Unknown Completed [facility] MMR Unknown Completed [facility] Polio (IPV/OPV) Unknown [facility] Unknown Completed [facility] Varicella (varivax)(chicken pox) Unknown Completed [facility] Pneumococcal 7 Conjugate, PCV7 (Prevnar7) Unknown Completed [facility] SARS-COV-2 COVID-19 PFIZER VACCINE Unknown Completed [facility] HPV9 Unknown Completed [facility] DTAP Unknown Completed [facility] HIB 3 Dose Schedule Unknown Completed [facility] Hepatitis A Adult Unknown [facility], Adol or Pedi Dosage Unknown Completed [facility] HPV Unknown Completed [facility] Meningococcal Vaccine Unknown Completed [facility] MMR Unknown Completed [facility] Polio (IPV/OPV) Unknown [facility] Unknown Completed [facility] Varicella (varivax)(chicken pox) Unknown Completed [facility] Pneumococcal 7 Conjugate, PCV7 (Prevnar7) Unknown Completed [facility] SARS-COV-2 COVID-19 PFIZER VACCINE Unknown Completed [facility] HPV9 [address] Completed [facility] DTAP Unknown Completed [facility] HIB 3 Dose Schedule Unknown Completed [facility] Hepatitis A Adult Unknown [facility], Adol or Pedi Dosage Unknown Completed [facility] HPV Unknown Completed [facility] Meningococcal Vaccine Unknown Completed [facility] MMR Unknown Completed [facility] Polio (IPV/OPV) Unknown [facility] Unknown Completed [facility] Varicella (varivax)(chicken pox) Unknown Completed [facility] Pneumococcal 7 Conjugate, PCV7 (Prevnar7) Unknown Completed [facility] SARS-COV-2 COVID-19 PFIZER VACCINE Unknown Completed [facility] HPV9 [address] [facility] DTAP Unknown Completed [facility] HIB 3 Dose Schedule Unknown Completed [facility] Hepatitis A Adult Unknown [facility], Adol or Pedi Dosage Unknown Completed [facility] HPV Unknown Completed [facility] Meningococcal Vaccine Unknown Completed [facility] MMR Unknown Completed [facility] Polio (IPV/OPV) Unknown [facility] Unknown Completed [facility] Varicella (varivax)(chicken pox) Unknown Completed [facility] Pneumococcal 7 Conjugate, PCV7 (Prevnar7) Unknown Completed [facility] SARS-COV-2 COVID-19 PFIZER VACCINE Unknown Completed [facility] HPV9 [address] Completed [facility] DTAP Unknown Completed [facility] HIB 3 Dose Schedule Unknown Completed [facility] Hepatitis A Adult Unknown [facility], Adol or Pedi Dosage Unknown Completed [facility] HPV Unknown Completed [facility] Meningococcal Vaccine Unknown Completed [facility] MMR Unknown Completed [facility] Polio (IPV/OPV) Unknown Completed [facility] TDAP Unknown Completed [facility] Varicella (varivax)(chicken pox) Unknown Completed [facility] Pneumococcal 7 Conjugate, PCV7 (Prevnar7) Unknown Completed [facility] SARS-COV-2 COVID-19 PFIZER VACCINE Unknown Completed [facility] HPV9 [address] Completed [facility] DTAP Unknown Completed [facility] HIB 3 Dose Schedule Unknown Completed [facility] Hepatitis A Adult Unknown [facility], Adol or Pedi Dosage Unknown Completed [facility] HPV Unknown Completed [facility] Meningococcal Vaccine Unknown Completed [facility] MMR Unknown Completed [facility] Polio (IPV/OPV) Unknown Completed [facility] TD[facility] Unknown Completed [facility] Varicella (varivax)(chicken pox) Unknown Completed [facility] Pneumococcal 7 Conjugate, PCV7 (Prevnar7) Unknown Completed [facility] SARS-COV-2 COVID-19 PFIZER VACCINE Unknown Completed [facility] HPV9 [address] Completed [facility] DTAP Unknown Completed [facility] HIB 3 Dose Schedule Unknown Completed [facility] Hepatitis A Adult Unknown [facility], Adol or Pedi Dosage Unknown Completed [facility] HPV Unknown Completed [facility] Meningococcal Vaccine Unknown Completed [facility] MMR Unknown Completed [facility] Polio (IPV/OPV) Unknown [facility] Unknown Completed [facility] Varicella (varivax)(chicken pox) Unknown Completed [facility] Pneumococcal 7 Conjugate, PCV7 (Prevnar7) Unknown Completed [facility] SARS-COV-2 COVID-19 PFIZER VACCINE Unknown Completed [facility] HPV9 [address] Com[address] [facility] DTAP Unknown Completed [facility] HIB 3 Dose Schedule Unknown Completed [facility] Hepatitis A Adult Unknown [facility], Adol or Pedi Dosage Unknown Completed [facility] HPV Unknown Completed [facility] Meningococcal Vaccine Unknown Completed [facility] MMR Unknown Completed [facility] Polio (IPV/OPV) Unknown [facility] Unknown Completed [facility] Varicella (varivax)(chicken pox) Unknown Completed [facility] Pneumococcal 7 Conjugate, PCV7 (Prevnar7) Unknown Completed [facility] SARS-COV-2 COVID-19 PFIZER VACCINE Unknown Completed [facility] HPV9 Unknown Completed [facility] DTAP Unknown Completed [facility] HIB 3 Dose Schedule Unknown Completed [facility] Hepatitis A Adult Unknown [facility], Adol or Pedi Dosage Unknown Completed [facility] HPV Unknown Completed [facility] Meningococcal Vaccine Unknown Completed [facility] MMR Unknown Completed [facility] Polio (IPV/OPV) Unknown [facility] Unknown Completed [facility] Varicella (varivax)(chicken pox) Unknown Completed [facility] Pneumococcal 7 Conjugate, PCV7 (Prevnar7) Unknown Completed [facility] SARS-COV-2 COVID-19 PFIZER VACCINE Unknown Completed [facility] HPV9 Unknown Completed [facility] DTAP Unknown Completed [facility] HIB 3 Dose Schedule Unknown Completed [facility] Hepatitis A Adult Unknown [facility], Adol or Pedi Dosage Unknown Completed [facility] HPV Unknown Completed [facility] Meningococcal Vaccine Unknown Completed [facility] MMR Unknown Completed [facility] Polio (IPV/OPV) Unknown [facility] Unknown Completed [facility] Varicella (varivax)(chicken pox) Unknown Completed [facility] Pneumococcal 7 Conjugate, PCV7 (Prevnar7) Unknown Completed [facility] SARS-COV-2 COVID-19 PFIZER VACCINE Unknown Completed [facility] HPV9 Unknown Completed [facility] DTAP Unknown Completed [facility] HIB 3 Dose Schedule Unknown Completed [facility] Hepatitis A Adult Unknown [facility], Adol or Pedi Dosage Unknown Completed [facility] HPV Unknown Completed [facility] Meningococcal Vaccine Unknown Completed [facility] MMR Unknown Completed [facility] Polio (IPV/OPV) Unknown [facility] Unknown Completed [facility] Varicella (varivax)(chicken pox) Unknown Completed [facility] Pneumococcal 7 Conjugate, PCV7 (Prevnar7) Unknown Completed [facility] SARS-COV-2 COVID-19 PFIZER VACCINE Unknown Completed [facility] HPV9 Unknown Completed [facility] DTAP Unknown Completed [facility] HIB 3 Dose Schedule Unknown Completed [facility] Hepatitis A Adult Unknown [facility] B, Adol or Pedi Dosage Unknown Completed [facility] HPV Unknown Completed [facility] Meningococcal Vaccine Unknown Completed [facility] MMR Unknown Completed [facility] Polio (IPV/OPV) Unknown [facility] Unknown Completed [facility] Varicella (varivax)(chicken pox) Unknown Completed [facility] Pneumococcal 7 Conjugate, PCV7 (Prevnar7) Unknown Completed [facility] SARS-COV-2 COVID-19 PFIZER VACCINE Unknown Completed [facility] HPV9 Unknown Completed [facility] DTAP Unknown Completed [facility] HIB 3 Dose Schedule Unknown Completed [facility] Hepatitis A Adult Unknown [facility], Adol or Pedi Dosage Unknown Completed [facility] HPV Unknown Completed [facility] Meningococcal Vaccine Unknown Completed [facility] MMR Unknown Completed [facility] Polio (IPV/OPV) Unknown Completed [facility] TDAP Unknown Completed [facility] Varicella (varivax)(chicken pox) Unknown Completed [facility] Pneumococcal 7 Conjugate, PCV7 (Prevnar7) Unknown Completed [facility] SARS-COV-2 COVID-19 PFIZER VACCINE Unknown Completed [facility] HPV9 Unknown Completed [facility] DTAP Unknown Completed [facility] HIB 3 Dose Schedule Unknown Completed [facility] Hepatitis A Adult Unknown [facility], Adol or Pedi Dosage Unknown Completed [facility] HPV Unknown Completed [facility] Meningococcal Vaccine Unknown Completed [facility] MMR Unknown Completed [facility] Polio (IPV/OPV) Unknown Completed [facility] TDAP Unknown Completed [facility] Varicella (varivax)(chicken pox) Unknown Completed [facility] Pneumococcal 7 Conjugate, PCV7 (Prevnar7) Unknown Completed [facility] SARS-COV-2 COVID-19 PFIZER VACCINE Unknown Completed [facility] Vital Signs Vital Name Observation Time Observation Value Comments S ource Systolic blood pressure 2024-04-07 05:36:00 121 mm[Hg] [place] [facility] Diastolic blood pressure 2024-04-07 05:36:00 85 mm[Hg] [facility] Heart rate 2024-04-07 05:36:00 70 /min [facility] Body temperature 2024-04-07 05:36:[address] [facility] Respiratory rate 2024-04-07 05:36:00 16 /min [facility] Oxygen saturation in Arterial blood by Pulse oximetry 2024-04-07 05:36:00 97 /min [facility] Body height 2024-04-04 05:48:00 167.6 cm [facility] Body weight 2024-04-04 05:48:00 70.398 kg [facility] BMI 2024-04-04 05:48:00 25.05 kg/m2 [facility] Systolic blood pressure 2024-04-03 20:09:00 108 mm[Hg] [facility] Diastolic blood pressure 2024-04-03 20:09:00 72 mm[Hg] [facility] Heart rate 2024-04-03 20:09:00 86 /min [facility] Body temperature 2024-04-03 20:09:[address] [facility] Respiratory rate 2024-04-03 20:09:00 18 /min [facility] Body height 2024-04-03 20:09:00 167.6 cm [facility] Body weight 2024-04-03 20:09:00 68.975 kg [facility] BMI 2024-04-03 20:09:00 24.54 kg/m2 [facility] Systolic blood pressure 2024-04-03 09:30:00 124 mm[Hg] [facility] Diastolic blood pressure 2024-04-03 09:30:00 79 mm[Hg] [facility] Heart rate 2024-04-03 09:30:00 84 /min [facility] Respiratory rate 2024-04-03 09:30:00 16 /min [facility] Oxygen saturation in Arterial blood by Pulse oximetry 2024-04-03 09:30:00 99 /min [facility] Body temperature 2024-04-03 07:22:[address] [facility] Body height 2024-04-03 07:22:00 167.6 cm [facility] Body weight 2024-04-03 07:22:00 68.811 kg [facility] BMI 2024-04-03 07:22:00 24.49 kg/m2 [facility] Systolic blood pressure 2024-03-31 19:17:00 121 mm[Hg] [facility] Diastolic blood pressure 2024-03-31 19:17:00 72 mm[Hg] [facility] Heart rate 2024-03-31 19:17:00 85 /min [facility] Body temperature 2024-03-31 19:17:[address] [facility] Respiratory rate 2024-03-31 19:17:00 16 /min [facility] Body height 2024-03-31 19:17:00 170.2 cm [facility] Body weight 2024-03-31 19:17:00 69.514 kg [facility] BMI 2024-03-31 19:17:00 24.00 kg/m2 [facility] Systolic blood pressure 2024-03-27 16:33:00 122 mm[Hg] [facility] Diastolic blood pressure 2024-03-27 16:33:00 77 mm[Hg] [facility] Heart rate 2024-03-27 16:33:00 72 /min [facility] Body temperature 2024-03-27 16:33:[address] [facility] Respiratory rate 2024-03-27 16:33:00 18 /min [facility] Body height 2024-03-27 16:33:00 170.2 cm [facility] Body weight 2024-03-27 16:33:00 71.725 kg [facility] BMI 2024-03-27 16:33:00 24.77 kg/m2 [facility] Systolic blood pressure 2024-03-20 15:38:00 113 mm[Hg] [facility] Diastolic blood pressure 2024-03-20 15:38:00 75 mm[Hg] [facility] Heart rate 2024-03-20 15:38:00 79 /min [facility] Body temperature 2024-03-20 15:38:[address] [facility] Respiratory rate 2024-03-20 15:38:00 18 /min [facility] Body height 2024-03-20 15:38:00 170.2 cm [facility] Body weight 2024-03-20 15:38:00 68.402 kg [facility] BMI 2024-03-20 15:38:00 23.62 kg/m2 [facility] Systolic blood pressure 2024-03-18 17:20:00 112 mm[Hg] [facility] Diastolic blood pressure 2024-03-18 17:20:00 79 mm[Hg] [facility] Heart rate 2024-03-18 17:20:00 89 /min [facility] Body temperature 2024-03-18 17:20:[address] [facility] Respiratory rate 2024-03-18 17:20:00 18 /min [facility] Body height 2024-03-18 17:20:00 170.2 cm [facility] Body weight 2024-03-18 17:20:00 68.295 kg [facility] BMI 2024-03-18 17:20:00 23.58 kg/m2 [facility] Systolic blood pressure 2024-03-03 18:46:00 118 mm[Hg] [facility] Diastolic blood pressure 2024-03-03 18:46:00 79 mm[Hg] [facility] Heart rate 2024-03-03 18:46:00 82 /min [facility] Body temperature 2024-03-03 18:46:[address] [facility] Respiratory rate 2024-03-03 18:46:00 18 /min [facility] Body height 2024-03-03 18:46:00 170.2 cm [facility] Body weight 2024-03-03 18:46:00 67.331 kg [facility] BMI 2024-03-03 18:46:00 23.25 kg/m2 [facility] Systolic blood pressure 2024-02-20 15:55:00 125 mm[Hg] [facility] Diastolic blood pressure 2024-02-20 15:55:00 76 mm[Hg] [facility] Heart rate 2024-02-20 15:55:00 86 /min [facility] Body temperature 2024-02-20 15:55:[address] [facility] Respiratory rate 2024-02-20 15:55:00 18 /min [facility] Body height 2024-02-20 15:55:00 170.2 cm [facility] Body weight 2024-02-20 15:55:00 64.609 kg [facility] BMI 2024-02-20 15:55:00 22.31 kg/m2 [facility] Systolic blood pressure 2024-02-05 16:34:00 117 mm[Hg] [facility] Diastolic blood pressure 2024-02-05 16:34:00 71 mm[Hg] [facility] Heart rate 2024-02-05 16:34:00 80 /min [facility] Body temperature 2024-02-05 16:34:[address] [facility] Respiratory rate 2024-02-05 16:34:00 16 /min [facility] Body weight 2024-02-05 16:34:00 65.318 kg [facility] Systolic blood pressure 2024-01-21 16:55:00 113 mm[Hg] [facility] Diastolic blood pressure 2024-01-21 16:55:00 76 mm[Hg] [facility] Heart rate 2024-01-21 16:55:00 87 /min [facility] Body temperature 2024-01-21 16:55:[address] [facility] Respiratory rate 2024-01-21 16:55:00 18 /min [facility] Body height 2024-01-21 16:55:00 170.2 cm [facility] Body weight 2024-01-21 16:55:00 63.73 kg [facility] BMI 2024-01-21 16:55:00 22.01 kg/m2 [facility] Systolic blood pressure 2024-01-07 16:45:00 127 mm[Hg] [facility] Diastolic blood pressure 2024-01-07 16:45:00 74 mm[Hg] [facility] Heart rate 2024-01-07 16:45:00 88 /min [facility] Body temperature 2024-01-07 16:45:[address] [facility] Respiratory rate 2024-01-07 16:45:00 19 /min [facility] Body height 2024-01-07 16:45:00 170.2 cm [facility] Body weight 2024-01-07 16:45:00 61.598 kg [facility] BMI 2024-01-07 16:45:00 21.27 kg/m2 [facility] Heart rate 2023-12-16 05:06:00 60 /min [facility] Oxygen saturation in Arterial blood by Pulse oximetry 2023-12-16 05:06:00 100 /min [facility] Systolic blood pressure 2023-12-16 03:49:00 110 mm[Hg] [facility] Diastolic blood pressure 2023-12-16 03:49:00 65 mm[Hg] [facility] Body temperature 2023-12-16 03:49:[address] [facility] Respiratory rate 2023-12-16 03:49:00 18 /min [facility] Body height 2023-12-16 03:49:00 170.2 cm [facility] Body weight 2023-12-16 03:49:00 60.328 kg [facility] BMI 2023-12-16 03:49:00 20.83 kg/m2 [facility] Systolic blood pressure 2023-12-10 14:57:00 121 mm[Hg] [facility] Diastolic blood pressure 2023-12-10 14:57:00 72 mm[Hg] [facility] Heart rate 2023-12-10 14:57:00 93 /min [facility] Body temperature 2023-12-10 14:57:[address] [facility] Respiratory rate 2023-12-10 14:57:00 18 /min [facility] Body height 2023-12-10 14:57:00 172.7 cm [facility] Body weight 2023-12-10 14:57:00 58.423 kg [facility] BMI 2023-12-10 14:57:00 19.58 kg/m2 [facility] Systolic blood pressure 2023-11-05 16:01:00 112 mm[Hg] [facility] Diastolic blood pressure 2023-11-05 16:01:00 73 mm[Hg] [facility] Heart rate 2023-11-05 16:01:00 106 /min [facility] Body temperature 2023-11-05 16:01:[address] [facility] Respiratory rate 2023-11-05 16:01:00 16 /min [facility] Body height 2023-11-05 16:01:00 172.7 cm [facility] Body weight 2023-11-05 16:01:00 56.019 kg [facility] BMI 2023-11-05 16:01:00 18.78 kg/m2 [facility] Systolic blood pressure 2023-10-07 19:28:00 118 mm[Hg] [facility] Diastolic blood pressure 2023-10-07 19:28:00 72 mm[Hg] [facility] Heart rate 2023-10-07 19:28:00 107 /min [facility] Body temperature 2023-10-07 19:28:[address] [facility] Respiratory rate 2023-10-07 19:28:00 18 /min [facility] Body height 2023-10-07 19:28:00 172.7 cm [facility] Body weight 2023-10-07 19:28:00 54.522 kg [facility] BMI 2023-10-07 19:28:00 18.28 kg/m2 [facility] Systolic blood pressure 2023-10-03 22:46:55 116 mm[Hg] [facility] Diastolic blood pressure 2023-10-03 22:46:55 67 mm[Hg] [facility] Heart rate 2023-10-03 22:46:55 88 /min [facility] Body temperature 2023-10-03 22:46:[address] [facility] Respiratory rate 2023-10-03 22:46:55 18 /min [facility] Oxygen saturation in Arterial blood by Pulse oximetry 2023-10-03 22:46:55 100 /min [facility] Body height 2023-10-03 19:59:00 172.7 cm [facility] 2023-10-03 19:59:00 56.564 kg [facility] BMI 2023-10-03 19:59:00 18.96 kg/m2 [facility] Systolic blood pressure 2023-09-30 15:32:00 127 mm[Hg] [facility] Diastolic blood pressure 2023-09-30 15:32:00 80 mm[Hg] [facility] Heart rate 2023-09-30 15:32:00 109 /min [facility] Body temperature 2023-09-30 15:32:[address] [facility] Body height 2023-09-30 15:32:00 175.3 cm [facility] Body weight 2023-09-30 15:32:00 54.25 kg [facility] BMI 2023-09-30 15:32:00 17.66 kg/m2 [facility] Systolic blood pressure 2023-09-27 20:32:00 108 mm[Hg] [facility] Diastolic blood pressure 2023-09-27 20:32:00 62 mm[Hg] [facility] Heart rate 2023-09-27 20:32:00 56 /min [facility] Body temperature 2023-09-27 20:32:[address] [facility] Respiratory rate 2023-09-27 20:32:00 16 /min [facility] Oxygen saturation in Arterial blood by Pulse oximetry 2023-09-27 20:32:00 100 /min [facility] Body height 2023-09-27 17:44:00 175.3 cm [facility] Body weight 2023-09-27 17:44:00 54.704 kg [facility] BMI 2023-09-27 17:44:00 17.81 kg/m2 [facility] Systolic blood pressure 2023-09-20 13:23:00 123 mm[Hg] [facility] Diastolic blood pressure 2023-09-20 13:23:00 88 mm[Hg] [facility] Heart rate 2023-09-20 13:23:00 103 /min [facility] Body temperature 2023-09-20 13:15:[address] [facility] Respiratory rate 2023-09-20 13:15:00 18 /min [facility] Body height 2023-09-20 13:15:00 170.2 cm [facility] Body weight 2023-09-20 13:15:00 54.205 kg [facility] BMI 2023-09-20 13:15:00 18.72 kg/m2 [facility] Systolic blood pressure 2023-01-16 16:16:00 118 mm[Hg] [facility] Diastolic blood pressure 2023-01-16 16:16:00 84 mm[Hg] [facility] Heart rate 2023-01-16 16:16:00 80 /min [facility] Body temperature 2023-01-16 16:16:[address] [facility] Respiratory rate 2023-01-16 16:16:00 18 /min [facility] Body height 2023-01-16 16:16:00 170.2 cm [facility] Body weight 2023-01-16 16:16:00 58.145 kg [facility] BMI 2023-01-16 16:16:00 20.08 kg/m2 [facility] Systolic blood pressure 2023-01-08 13:57:00 121 mm[Hg] [facility] Diastolic blood pressure 2023-01-08 13:57:00 84 mm[Hg] [facility] Heart rate 2023-01-08 13:57:00 80 /min [facility] Body temperature 2023-01-08 13:57:[address] [facility] Respiratory rate 2023-01-08 13:57:00 18 /min [facility] Body height 2023-01-08 13:57:00 170.2 cm [facility] Body weight 2023-01-08 13:57:00 57.108 kg [facility] BMI 2023-01-08 13:57:00 19.72 kg/m2 [facility] Oxygen saturation in Arterial blood by Pulse oximetry 2022-01-26 23:50:00 100 /min [facility] Systolic blood pressure 2022-01-26 23:50:00 128 mm[Hg] [facility] Diastolic blood pressure 2022-01-26 23:50:00 85 mm[Hg] [facility] Heart rate 2022-01-26 23:50:00 83 /min [facility] Body temperature 2022-01-26 23:50:[address] [facility] Respiratory rate 2022-01-26 23:50:00 18 /min [facility] Body weight 2022-01-26 23:50:00 58.514 kg [facility] Systolic blood pressure 2022-01-11 15:00:00 123 mm[Hg] [facility] Diastolic blood pressure 2022-01-11 15:00:00 86 mm[Hg] [facility] Heart rate 2022-01-11 15:00:00 79 /min [facility] Body temperature 2022-01-11 15:00:[address] [facility] Respiratory rate 2022-01-11 15:00:00 18 /min [facility] Body height 2022-01-11 15:00:00 170.2 cm [facility] Body weight 2022-01-11 15:00:00 63.617 kg [facility] BMI 2022-01-11 15:00:00 21.97 kg/m2 [facility] Body mass index (BMI) [Percentile] Per age and sex 2022-01-11 15:00:00 57.01 % [facility] Systolic blood pressure 2021-12-15 13:33:00 124 mm[Hg] [facility] Diastolic blood pressure 2021-12-15 13:33:00 87 mm[Hg] [facility] Heart rate 2021-12-15 13:33:00 67 [facility] 2021-12-15 13:33:[address] [facility] Body weight 2021-12-15 13:33:00 62.415 kg [facility] Systolic blood pressure 2021-12-01 16:04:00 123 mm[Hg] [facility] Diastolic blood pressure 2021-12-01 16:04:00 86 mm[Hg] [facility] Heart rate 2021-12-01 16:04:00 74 /min [facility] Body temperature 2021-12-01 16:04:[address] [facility] Respiratory rate 2021-12-01 16:04:00 18 /min [facility] Body weight 2021-12-01 16:04:00 61.961 kg [facility] Systolic blood pressure 2021-11-01 14:59:00 135 mm[Hg] [facility] Diastolic blood pressure 2021-11-01 14:59:00 87 mm[Hg] [facility] Heart rate 2021-11-01 14:59:00 79 /min [facility] Body temperature 2021-11-01 14:59:[address] [facility] Respiratory rate 2021-11-01 14:59:00 18 /min [facility] Body height 2021-11-01 14:59:00 170.2 cm [facility] Body weight 2021-11-01 14:59:00 63.305 kg [facility] BMI 2021-11-01 14:59:00 21.86 kg/m2 [facility] Body mass index (BMI) [Percentile] Per age and sex 2021-11-01 14:59:00 56.44 % [facility] Procedures Procedure Date / Time Performed Performing Clinician Source CBC WITH DIFF 2024-04-06 09:26:[address] [facility] VENOUS CORD GAS 2024-04-05 22:12:[address] [facility] CENTRAL NEURAXIAL BLOCK 2024-04-05 11:54:[address] [facility] CREATININE 2024-04-05 06:22:[address] [facility] CBC WITH DIFF 2024-04-05 06:22:[address] [facility] HEPATITIS B SURFACE ANTIGEN 2024-04-05 06:22:[address] [facility] HB ABO GROUPING 2024-04-05 06:22:[address] [facility] RHO (D) IMMUNE GLOBULIN 2024-04-05 06:22:[address] [facility] HIV 1/2 AG-AB WITH REFLEX 2024-04-05 06:22:[address] [facility] HIV 1/2 AB SUPPLEMENTAL TESTING 2024-04-05 06:22:[address] [facility] SYPHILIS IGG/IGM 2024-04-05 06:22:[address] [facility] POCT URINALYSIS 2024-04-03 22:04:[address] [facility] NON-STRESS TEST 2024-04-03 21:24:[address] [facility] SECOND AND THIRD TRIMESTER ULTRASOUND 2024-04-03 21:18:[address] [facility] NON-STRESS TEST 2024-03-31 20:25:[address] [facility] POCT URINALYSIS 2024-03-31 19:51:[address] [facility] NON-STRESS TEST 2024-03-27 18:33:[address] [facility] SECOND AND THIRD TRIMESTER ULTRASOUND 2024-03-27 17:37:[address] [facility] NON-STRESS TEST 2024-03-20 16:10:[address] [facility] POCT URINALYSIS 2024-03-20 15:41:[address] [facility] SECOND AND THIRD TRIMESTER ULTRASOUND 2024-03-18 20:56:[address] [facility] POCT URINALYSIS 2024-03-18 18:17:[address] [facility] POCT URINALYSIS 2024-03-03 22:20:[address] [facility] POCT URINALYSIS 2024-02-20 16:23:[address] [facility] POCT URINALYSIS 2024-02-05 00:00:[address] [facility] POCT URINALYSIS 2024-01-21 17:36:[address] [facility] TDAP VACCINE, >11 YRS, IM 2024-01-21 16:47:[address] [facility] POCT URINALYSIS 2024-01-07 00:00:[address] [facility] SECOND AND THIRD TRIMESTER ULTRASOUND 2024-01-01 18:30:[address] [facility] ADC CLC OR LCC ONLY - WET PREP 2023-12-16 04:17:[address] [facility] POCT URINALYSIS 2023-11-05 16:13:[address] [facility] SCANNED LAB RESULTS 2023-10-31 16:08:28 Doctor Prem allen, [place] [facility] FIRST TRIMESTER ULTRASOUND 2023-10-09 13:22:[address] [facility] POCT URINALYSIS 2023-10-07 19:31:[address] [facility] BASIC METABOLIC PANEL (NA, K, CL, CO2, GLUCOSE, BUN, CREATININE, CA) 2023-10-03 21:35:[address] [facility] CBC WITH DIFF 2023-10-03 21:35:00 LanceBrooks [facility] URINALYSIS 2023-10-03 21:35:00 LanceBrooks [facility] HB ABO GROUPING 2023-10-03 21:35:00 Lance Brooks [facility] US FIRST TRIMESTER LESS THAN 14 WEEKS 2023-10-03 21:10:[address] [facility] URINALYSIS 2023-09-27 20:26:00 Forrest Galvan [facility] LIPASE 2023-09-27 19:42:00 Forrest Galvan [facility] COMP. METABOLIC PANEL (84990) 2023-09-27 19:42:[address] [facility] CBC WITH DIFF 2023-09-27 19:42:00 Forrest Galvan [facility] INFLUENZA A/B RSV COVID NAAT 2023-09-27 19:37:[address] [facility] HB ECG ROUTINE & RHYTHM STRIP 2023-09-27 19:31:[address] [facility] POCT URINALYSIS W/O SPECIFIC GRAVITY 2023-09-20 13:15:[address] [facility] POCT TEST 2023-09-20 13:14:[address] [facility] CONSENT/REFUSAL FOR DIAGNOSIS AND TREATMENT 2023-04-10 14:57:50 Doctor Unassigned, [place] [facility] PATIENT FINANCIAL POLICY 2023-01-08 13:47:28 Doctor Unassigned, [place] [facility] REFERRAL- REQUEST/RESPONSE 2022-04-10 06:01:00 Doctor Unassigned, [place] [facility] RAPID STREP SCREEN FOR GROUP A 2022-01-27 00:50:[address] [facility] NOTICE OF PRIVACY PRACTICES 2022-01-26 23:44:34 Doctor Unassigned, [place] [facility] POCT TEST 2022-01-11 15:01:[address] [facility] DISCLOSURE AND CONSENT MEDICAL & SURGICAL PROCEDURES - FEMALM 2022-01-11 06:01:00 Doctor Unassigned, [place] [facility] POCT TEST 2021-12-01 16:51:[address] [facility] CBC WITH DIFF 2021-12-01 16:48:00 [facility] (HPV 9V) VACCINE 2021-11-01 15:33:[address] [facility] POCT TEST 2021-11-01 15:20:[address] [facility] Encounters Start Date/Time End Date/Time Encounter Type Admission Type Attending [facility] Facility Care Department Encounter ID Source 2023-12-16 00:25:[address] [facility] [facility] ALYCIA [id number] [facility] 2024-04-14 10:00:00 2024-04-14 10:00:00 Outpatient R VENUS VALENZUELA [facility] [id number] [facility] 2024-04-08 00:00:00 2024-04-09 11:14:54 Telephone Gray Cesar [facility] PHILOSOPHY INSTRUCTOR [facility] MATERNAL & CHILD [facility] ..840.114 350.1.13.10 4.2.7.2.686 [id number] 107 [id number] [facility] 2024-04-08 00:00:00 2024-04-08 09:25:03 Abstract Kar[address] Vasquez [facility] PHILOSOPHY INSTRUCTOR [facility] MATERNAL & CHILD [facility] ..840.114 350.1.13.10 4.2.7.2.686 [id number] [facility] 2024-04-08 00:00:00 2024-04-08 09:11:31 Abstract Karine Vasquez [facility] PHILOSOPHY INSTRUCTOR [facility] MATERNAL & CHILD [facility] 1.2.840.114 350.1.13.10 4.2.7.2.686 [id number] [facility] 2024-04-04 23:24:00 2024-04-07 11:33:00 Inpatient [facility] ALYCIA [id number] [facility] 2024-04-04 23:24:00 2024-04-07 11:33:00 Hospital Encounter [facility], Saud Chowdary [facility] ([place] 1.2.840.114 350.1.13.10 4.2.7.2.686 [id number] [facility] 2024-04-05 05:54:00 2024-04-05 17:17:00 Anesthesia Event Popeye Sylvester Rovnat [facility] ([facility] 1.2.840.114 350.1.13.10 4.2.7.2.686 [id number] [facility] 2024-04-03 14:45:00 2024-04-03 15:25:23 Outpatient R SERGEY TELLES [facility] [id number] [facility] 2024-04-03 14:45:00 2024-04-03 15:25:23 Merchandising Lead Visit Ultrasound, Sergey Kahn [facility] PHILOSOPHY INSTRUCTOR [facility] & CHILD [facility] 1.20.114 350.1.13.10 4.2.7.2.686 [id number] [facility] 2024-04-03 13:45:00 2024-04-03 14:32:14 Routine Visit Venus Valenzuela [facility] PHILOSOPHY INSTRUCTOR [facility] & CHILD [facility] 1.2.840.114 350.1.13.10 4.2.7.2.686 [id number] 107 [id number] [facility] 2024-04-03 01:10:00 2024-04-03 03:49:00 Outpatient X ADUM, SAMMI NUNEZ [facility] ALYCIA [id number] [facility] 2024-04-03 01:10:00 2024-04-03 03:49:00 Emergency Adum, Sammi Riddle [facility] 1.2840.114 350.1.13.10 4.2.7.2.686 [id number] [facility] 2024-03-31 13:00:00 2024-03-31 13:45:48 Outpatient R GRAY CESAR [facility] [id number] [facility] 2024-03-31 13:00:00 2024-03-31 13:45:48 Routine Visit Venus Valenzuela Damilola C [facility] PHILOSOPHY INSTRUCTOR [facility] MATERNAL & CHILD [facility] 1.840.114 350.1.13.10 4.2.7.2.686 [id number] 107 [id number] [facility] 2024-03-30 00:00:00 2024-03-31 10:52:16 Telephone Venus Valenzuela [facility] PHILOSOPHY INSTRUCTOR [facility] MATERNAL & CHILD [facility] 1.840.114 350.1.13.10 4.2.7.2.686 [id number] [facility] 2024-03-27 11:30:00 2024-03-27 11:37:16 Outpatient P VENUS VALENZUELA [facility] [id number] [facility] 2024-03-27 11:30:00 2024-03-27 11:37:16 Merchandising Lead Visit Ultrasound, Sherwin-Venus Allison [facility] PHILOSOPHY INSTRUCTOR [facility] & CHILD [facility] 1.840.114 350.1.13.10 4.2.7.2.686 [id number] [facility] 2024-03-27 10:45:00 2024-03-27 11:04:37 Routine Visit Venus Valenzuela [facility] PHILOSOPHY INSTRUCTOR [facility] & CHILD [facility] 1..840.114 350.1.13.10 4.2.7.2.686 [id number] 107 [id number] [facility] 2024-03-24 08:45:00 2024-03-24 08:45:00 Outpatient R VENUS VALENZUELA [facility] [id number] [facility] 2024-03-20 09:30:00 2024-03-20 09:45:00 [facility] INSTRU[facility] & CHILD [facility] 1..840.114 350.1.13.10 4.2.7.2.686 [id number] 107 [id number] [facility] 2024-03-20 09:30:00 2024-03-20 09:30:00 Outpatient R VENUS VALENZUELA [facility] [id number] [facility] 2024-03-18 00:00:00 2024-03-18 17:01:44 Abstract Venus Valenzuela [facility] PHILOSOPHY INSTRUCTOR [facility] & CHILD [facility] 1..840.114 350.1.13.10 4.2.7.2.686 [id number] 107 [id number] [facility] 2024-03-18 14:30:00 2024-03-18 14:56:05 Outpatient P VENUS VALENZUELA [facility] [id number] [facility] 2024-03-18 14:30:00 2024-03-18 14:56:05 Merchandising Lead Visit Ultrasound, Sherwin-Venus Allison [facility] PHILOSOPHY INSTRUCTOR [facility] & CHILD [facility] 1..840.114 350.1.13.10 4.2.7.2.686 [id number] [facility] 2024-03-18 11:00:00 2024-03-18 11:48:39 Routine Visit Venus Valenzuela [facility] PHILOSOPHY INSTRUCTOR [facility] MATERNAL & CHILD [facility] 1.2.840.114 350.1.13.10 4.2.7.2.686 [id number] 107 [id number] [facility] 2024-03-03 12:45:00 2024-03-03 13:09:51 Outpatient R VENUS VALENZUELA [facility] [id number] [facility] 2024-03-03 12:45:00 2024-03-03 13:09:51 Routine Visit Venus Valenzuela Shilpi [facility] PHILOSOPHY INSTRUCTOR [facility] MATERNAL & CHILD [facility] 1.2.840.114 350.1.13.10 4.2.7.2.686 [id number] 107 [id number] [facility] 2024-02-20 10:00:00 2024-02-20 10:22:13 Outpatient R GRAY CESAR [facility] [id number] [facility] 2024-02-20 10:00:00 2024-02-20 10:22:13 Routine Visit Gray Cesar [facility] PHILOSOPHY INSTRUCTOR [facility] & CHILD [facility] 1.2.840.114 350.1.13.10 4.2.7.2.686 [id number] 107 [id number] [facility] 2024-02-12 00:00:00 2024-02-12 13:06:29 Telephone Venus Valenzuela [facility] PHILOSOPHY INSTRUCTOR [facility] & CHILD [facility] 1.2.840.114 350.1.13.10 4.2.7.2.686 [id number] 107 [id number] [facility] 2024-02-12 00:00:00 2024-02-12 11:27:58 Telephone Gray Cesar [facility] PHILOSOPHY INSTRUCTOR [facility] & CHILD [facility] 1.2.840.114 350.1.13.10 4.2.7.2.686 [id number] 107 [id number] [facility] 2024-02-05 10:15:00 2024-02-05 11:13:09 Outpatient R MEMEVENUS DENIS [facility] [id number] [facility] 2024-02-05 10:15:00 2024-02-05 11:13:09 [facility] PHIL[facility]OPHY INSTRUCTOR [facility] & CHILD [facility] 1.2.840.114 350.1.13.10 4.2.7.2.686 [id number] 107 [id number] [facility] 2024-01-21 10:45:00 2024-01-21 11:27:14 Outpatient R MEMEADEEL VENUS [facility] [id number] [facility] 2024-01-21 10:45:00 2024-01-21 11:27:14 Routine [facility] PHILOSOPHY INSTRUCTOR [facility] & CHILD [facility] 1.2.840.114 350.1.13.10 4.2.7.2.686 [id number] 107 [id number] [facility] 2024-01-07 10:30:00 2024-01-07 11:35:35 Outpatient R MEMEADEEL VENUS [facility] [id number] [facility] 2024-01-07 10:30:00 2024-01-07 11:35:35 Routine [facility] PHILOSOPHY INSTRUCTOR [facility] & CHILD [facility] 1.2.840.114 350.1.13.10 4.2.7.2.686 [id number] 107 [id number] [facility] 2024-01-01 13:00:00 2024-01-01 13:38:40 Outpatient R VIRGIL DURAN [facility] [id number] [facility] 2024-01-01 13:00:00 2024-01-01 13:38:40 Merchandising Lead Visit 1, [facility] Room Virgil Duran [facility] PHILOSOPHY INSTRUCTOR [facility] & CHILD [facility] 1.2.840.114 350.1.13.10 4.2.7.2.686 [id number] [facility] 2023-12-18 00:00:00 2023-12-18 13:31:28 Telephone Israel Nguyen [facility] PHILOSOPHY INSTRUCTOR [facility] MATERNAL & CHILD [facility] 1.2.840.114 350.1.13.10 4.2.7.2.686 [id number] 107 [id number] [facility] 2023-12-18 00:00:00 2023-12-18 13:20:24 Telephone Venus Valenzuela [facility] PHILOSOPHY INSTRUCTOR [facility] MATERNAL & CHILD [facility] 1.2.840.114 350.1.13.10 4.2.7.2.686 [id number] 107 [id number] [facility] 2023-12-18 00:00:00 2023-12-18 12:49:17 Telephone Venus Valenzuela [facility] PHILOSOPHY INSTRUCTOR [facility] & CHILD [facility] 1.2.840.114 350.1.13.10 4.2.7.2.686 [id number] 107 [id number] [facility] 2023-12-18 00:00:00 2023-12-18 12:15:41 Nurse Triage Janie Zavala Chessica T [facility] 1.2.840.114 350.1.13.10 4.2.7.2.686 [id number] [facility] 2023-12-15 22:35:00 2023-12-16 00:10:00 Outpatient X JAY JEAN VIEN [facility] ALYCIA [id number] [facility] 2023-12-15 22:35:00 2023-12-16 00:10:00 Emergency Jay Jean [facility] 1.2.840.114 350.1.13.10 4.2.7.2.686 [id number] [facility] 2023-12-10 10:00:00 2023-12-10 10:23:34 Outpatient R VENUS VALENZUELA [facility] [id number] [facility] 2023-12-10 10:00:00 2023-12-10 10:23:34 Routine Visit Venus Valenzuela [facility] PHILOSOPHY INSTRUCTOR [facility] & CHILD [facility] 1.2.840.114 350.1.13.10 4.2.7.2.686 [id number] 107 [id number] [facility] 2023-11-22 09:00:00 2023-11-22 11:00:13 Outpatient R MEHRAN PEREZ [facility] [id number] [facility] 2023-11-22 09:00:00 2023-11-22 11:00:13 Telemedici ne Visit Yasmine Colin Joseph W [facility]an [facility] PHILOSOPHY INSTRUCTOR [facility] & CHILD [facility] 1.840.114 350.1.13.10 4.2.7.2.686 [id number] 107 [id number] [facility] 2023-11-05 11:00:00 2023-11-05 11:45:11 Outpatient R GRAY CESAR [facility] [id number] [facility] 2023-11-05 11:00:00 2023-11-05 11:45:11 Routine Visit Gray Cesar [facility] PHILOSOPHY INSTRUCTOR [facility] & CHILD [facility] 1..840.114 350.1.13.10 4.2.7.2.686 [id number] 107 [id number] [facility] 2023-09-20 00:00:00 2023-10-26 18:23:30 Patient Secure Msg Venus Valenzuela [facility] PHILOSOPHY INSTRUCTOR [facility] & CHILD [facility] 1..840.114 350.1.13.10 4.2.7.2.686 [id number] 107 [id number] [facility] 2023-10-15 13:30:00 2023-10-15 13:30:00 Outpatient P [facility] [id number] [facility] 2023-10-10 00:00:00 2023-10-10 06:52:33 Case Management Venus Valenzuela [facility] PHILOSOPHY INSTRUCTOR [facility] & CHILD [facility] 1.840.114 350.1.13.10 4.2.7.2.686 [id number] 107 [id number] [facility] 2023-10-09 08:00:00 2023-10-09 08:22:07 Outpatient R HENRIETTA DURAN [facility] [id number] [facility] 2023-10-09 08:00:00 2023-10-09 08:22:07 Merchandising Lead Visit Ultrasound, Henrietta Matta [facility] .840.114 350.1.13.10 4.2.7.2.686 [id number] [facility] 2023-10-07 14:30:00 2023-10-07 14:45:00 Routine Visit Gray Cesar [facility] 1.840.114 350.1.13.10 4.2.7.2.686 [id number] 107 [id number] [facility] 2023-10-07 14:30:00 2023-10-07 14:30:00 Outpatient R GRAY CESAR [facility] [id number] [facility] 2023-10-04 00:00:00 2023-10-04 09:15:30 Telephone Venus Valenzuela [facility]OPHY [facility] 1.840.114 350.1.13.10 4.2.7.2.686 [id number] 107 [id number] [facility] 2023-10-04 00:00:00 2023-10-04 09:09:54 Case Management Venus Valenzuela [facility] PHILOSOPHY INSTRUCTOR [facility] & CHILD [facility] 1..840.114 350.1.13.10 4.2.7.2.686 [id number] 107 [id number] [facility] 2023-10-03 15:01:00 2023-10-03 17:55:00 Emergency X BROOKS LUCAS CHARLES [facility] ERT [id number] [facility] 2023-10-03 15:01:00 2023-10-03 17:55:00 Emergency Brooks Lucas [facility] 1..840.114 350.1.13.10 4.2.7.2.686 [id number] [facility] 2023-10-03 00:00:00 2023-10-03 14:11:05 Telephone Venus Valenzuela [facility] PHILOSOPHY INSTRUCTOR [facility] & CHILD [facility] 1..840.114 350.1.13.10 4.2.7.2.686 [id number] 107 [id number] [facility] 2023-09-30 10:30:00 2023-09-30 11:26:52 Outpatient R CECILIA VINCENT FARANAK [facility] [id number] [facility] 2023-09-30 10:30:00 2023-09-30 11:26:52 Routine Visit Provider, Cecilia Bah Provider, Yeimi Raines [facility] PHILOSOPHY INSTRUCTOR [facility] & CHILD [facility] 1..840.114 350.1.13.10 4.2.7.2.686 [id number] 107 [id number] [facility] 2023-09-27 12:46:00 2023-09-27 17:01:00 Emergency X FORREST GALVAN [facility] ERT [id number] [facility] 2023-09-27 12:46:00 2023-09-27 17:01:00 Emergency Forrest Galvan T [facility] 1.2.840.114 350.1.13.10 4.2.7.2.686 [id number] [facility] 2023-09-24 00:00:00 2023-09-24 14:55:54 Telephone Venus Valenzuela [facility] PHILOSOPHY INSTRUCTOR [facility] MATERNAL & CHILD [facility] 1.2.840.114 350.1.13.10 4.2.7.2.686 [id number] 107 [id number] [facility] 2023-09-24 00:00:00 2023-09-24 06:54:53 Telephone Venus Valenzuela [facility] PHILOSOPHY INSTRUCTOR [facility] & CHILD [facility] 1.2.840.114 350.1.13.10 4.2.7.2.686 [id number] 107 [id number] [facility] 2023-09-23 00:00:00 2023-09-23 13:34:52 Telephone Venus Valenzuela [facility] PHILOSOPHY INSTRUCTOR [facility] CHILD [facility] 1.2.840.114 350.1.13.10 4.2.7.2.686 [id number] 107 [id number] [facility] 2023-09-20 08:30:00 2023-09-20 09:12:41 Outpatient R VENUS VALENZUELA [facility] [id number] [facility] 2023-09-20 08:30:00 2023-09-20 09:12:41 Initial Visit Venus Valenzuela [facility] PHILOSOPHY INSTRUCTOR [facility] & CHILD [facility] 1.2.840.114 350.1.13.10 4.2.7.2.686 [id number] 107 [id number] [facility] 2023-09-17 00:00:00 2023-09-17 16:53:40 Telephone Bianca Venus Dobbins [facility] PHILOSOPHY INSTRUCTOR [facility] & [facility]ILD [facility] 1.0.114 350.1.13.10 4.2.7.2.686 [id number] 107 [id number] [facility] 2023-07-16 07:45:00 2023-07-16 07:45:00 Outpatient R BIANCA VENUS [facility] [id number] [facility] 2023-04-10 09:00:00 2023-04-10 09:00:00 [facility] [id number] 2023-04-10 00:00:00 2023-04-10 00:00:00 Orders Only Doctor Unassigned, [place] [facility] 1..114 350.1.13.10 4.2.7.2.686 [id number] [facility] 2023-02-13 08:30:00 2023-02-13 08:30:00 Outpatient R FRANCAHaily VENUS [facility] [id number] [facility] 2023-01-16 10:00:00 2023-01-16 10:53:02 Outpatient R VENUS VALENZUELA [facility] [id number] [facility] 2023-01-16 10:00:00 2023-01-16 10:53:02 Office Visit Venus Valenzuela [facility] PHILOSOPHY INSTRUCTOR [facility] & CHILD [facility] 1..114 350.1.13.10 4.2.7.2.686 [id number] 107 [id number] [facility] 2023-01-16 00:00:00 2023-01-16 00:00:00 Telephone Venus Valenzuela [facility] PHILOSOPHY INSTRUCTOR [facility] & CHILD [facility] 1.840.114 350.1.13.10 4.2.7.2.686 [id number] 107 [id number] [facility] 2023-01-11 00:00:00 2023-01-11 00:00:00 Case Management Venus Valenzuela [facility] PHILOSOPHY INSTRUCTOR [facility] & CHILD [facility] 1.2.840.114 350.1.13.10 4.2.7.2.686 [id number] 107 [id number] [facility] 2023-01-08 07:45:00 2023-01-08 08:38:36 Outpatient R VENUS VALENZUELA [facility] [id number] [facility] 2023-01-08 07:45:00 2023-01-08 08:38:36 Office Visit Venus Valenzuela [facility] PHILOSOPHY INSTRUCTOR [facility] CHILD [facility] 1..840.114 350.1.13.10 4.2.7.2.686 [id number] 107 [id number] [facility] 2023-01-08 00:00:00 2023-01-08 00:00:00 Orders Only Doctor Unassigned, [place] [facility] 1..840.114 350.1.13.10 4.2.7.2.686 [id number] [facility] 2022-11-15 10:03:46 2022-11-15 10:03:46 Outpatient [facility] [id number] Fazal Han 2022-11-01 09:30:00 2022-11-01 09:30:00 Outpatient R GRAY CESAR [facility] [id number] [facility] 2022-10-11 11:34:22 2022-10-11 11:34:22 Outpatient [facility] [id number] Fazal Layton Guille 2022-09-26 08:06:16 2022-09-26 08:06:16 Outpatient [facility] [id number] Fazal Layton Guille 2022-04-18 10:15:00 2022-04-18 10:15:00 Outpatient CHICO MILLER [id number] Dorothy Cannon 2022-04-10 00:00:00 2022-04-10 00:00:00 Orders Only Doctor Unassigned, [place] [facility] 1.0.114 350.1.13.10 4.2.7.2.686 [id number] [facility] 2022-04-04 00:00:00 2022-04-04 00:00:00 Telephone Nash, [facility] 1..114 350.1.13.10 4.2.7.2.686 [id number] [facility] 2022-03-13 14:45:00 2022-03-13 14:45:00 Outpatient R VENUS VALENZUELA [facility] [id number] [facility] 2022-02-22 09:30:00 2022-02-22 09:30:00 Outpatient R GRAY CESAR [facility] [id number] [facility] 2022-01-31 08:30:00 2022-01-31 08:30:00 Outpatient R [facility] [id number] [facility] 2022-01-26 17:50:00 2022-01-26 19:40:00 Emergency X NIKODAVINABILLY [facility] ERT [id number] [facility] 2022-01-26 17:50:00 2022-01-26 19:40:00 Emergency NikodavinaBilly [facility] 1..114 350.1.13.10 4.2.7.2.686 [id number] [facility] 2022-01-26 00:00:00 2022-01-26 00:00:00 Orders Only Doctor Unassigned, [place] [facility] 1.0.114 350.1.13.10 4.2.7.2.686 [id number] [facility] 2022-01-11 09:00:00 2022-01-11 09:42:13 Outpatient R GRAY CESAR [facility] [id number] [facility] 2022-01-11 09:00:00 2022-01-11 09:42:13 Office Visit Gray Cesar [facility] PHILOSOPHY INSTRUCTOR [facility] 1.2.840.114 350.1.13.10 4.2.7.2.686 [id number] [facility] 2022-01-11 00:00:00 2022-01-11 00:00:00 Orders Only Doctor Unassigned, [place] [facility] 1.2.840.114 350.1.13.10 4.2.7.2.686 [id number] [facility] 2021-12-15 08:15:00 2021-12-15 09:00:02 Outpatient R GRAY CESAR [facility] [id number] [facility] 2021-12-15 08:15:00 2021-12-15 09:00:02 Office Visit Gray Cesar [facility] PHILOSOPHY INSTRUCTOR [facility] CHILD [facility] 1.2.840.114 350.1.13.10 4.2.7.2.686 [id number] [facility] 2021-12-15 00:00:00 2021-12-15 00:00:00 Letter (Out) Gray Cesar [facility] PHILOSOPHY INSTRUCTOR [facility] 1.2.840.114 350.1.13.10 4.2.7.2.686 [id number] [facility] [facility] 2021-12-01 11:00:00 2021-12-01 11:26:38 Outpatient R LUDY PRO SARAH [facility] [id number] [facility] 2021-12-01 11:00:00 2021-12-01 11:26:38 Office Visit Provider, Ludy Espinoza [facility] PHILOSOPHY INSTRUCTOR [facility] MATERNAL & CHILD [facility] 1.2.840.114 350.1.13.10 4.2.7.2.686 [id number] 107 [id number] [facility] 2021-11-01 09:45:00 2021-11-01 10:55:01 Outpatient R GRAY CESAR [facility] [id number] [facility] 2021-11-01 09:45:00 2021-11-01 10:55:01 Office Visit Gray Cesar Roshunda R [facility] PHILOSOPHY INSTRUCTOR [facility] CHILD [facility] 1.2840.114 350.1.13.10 4.2.7.2.686 [id number] 107 [id number] [facility] 2021-11-01 09:45:00 2021-11-01 10:55:01 Outpatient R GRAY CESAR [facility] [id number] [facility] 2021-11-01 00:00:00 2021-11-01 00:00:00 Orders Only Doctor Unassigned, [place] [facility] 1.2840.114 350.1.13.10 4.2.7.2.686 [id number] [facility] 2021-11-01 00:00:00 2021-11-01 00:00:00 Letter (Out) Gray Cesar [facility] PHILOSOPHY INSTRUCTOR [facility] & CHILD [facility] 1.2840.114 350.1.13.10 4.2.7.2.686 [id number] 107 [id number] [facility] 2021-10-06 00:00:00 2021-10-06 00:00:00 Telephone Felicitas Thayer [facility] PHILOSOPHY INSTRUCTOR [facility] & CHILD [facility] 1.2840.114 350.1.13.10 4.2.7.2.686 [id number] 107 [id number] [facility] 2021-08-24 10:00:00 2021-08-24 10:00:00 Outpatient R [facility] [id number] [facility] 2021-08-01 09:45:00 2021-08-01 09:45:00 Outpatient R FELICITAS THAYER [facility] [id number] [facility] 2021-08-01 09:45:00 2021-08-01 09:45:00 Outpatient R FELICITAS THAYER [facility] [id number] [facility] 2021-08-01 09:45:00 2021-08-01 09:45:00 Office Visit Felicitas Thayer Chivo [facility] PHILOSOPHY INSTRUCTOR [facility] MATERNAL & [facility]ILD [facility] 1.2.840.114 350.1.13.10 4.2.7.2.686 [id number] 107 [id number] [facility] 2021-08-01 09:45:00 2021-08-01 09:36:07 Outpatient R FELICITAS THAYER [facility] [id number] [facility] 2021-06-06 10:30:00 2021-06-06 11:00:00 Office Visit Sammi Roberson [facility] 1.2.840.114 350.1.13.10 4.2.7.2.686 [id number] 134 [id number] [facility] 2021-06-06 10:30:00 2021-06-06 10:30:00 Outpatient R SAMMI ROBERSON [facility] [id number] [facility] 2021-06-06 00:00:00 2021-06-06 00:00:00 Letter (Out) Sammi Roberson [facility] 1.2.840.114 350.1.13.10 4.2.7.2.686 [id number] 134 [id number] [facility] 2021-06-01 10:00:00 2021-06-01 10:11:01 Outpatient R CYNDEE THAYERTEFRIDAShilpi [facility] [id number] [facility] 2021-06-01 10:00:00 2021-06-01 10:11:01 Nurse Visit Visit, LbRmchp Felicitas Gill [facility] PHILOSOPHY INSTRUCTOR [facility] & CHILD [facility] 1..840.114 350.1.13.10 4.2.7.2.686 [id number] 107 [id number] [facility] 2021-06-01 00:00:00 2021-06-01 00:00:00 Letter (Out) Thayer, Felicitas Waldron [facility] 1..840.114 350.1.13.10 4.2.7.2.686 [id number] 107 [id number] [facility] 2021-05-31 10:00:00 2021-05-31 10:00:00 Outpatient R CYNDEE THAYERDESTINY [facility] [id number] [facility] 2021-05-10 13:30:00 2021-05-10 13:30:00 Outpatient R SAMMI ROBERSON [facility] [id number] [facility] 2021-03-08 09:30:00 2021-03-08 09:54:18 Outpatient R THAYERFELICITAS [facility] [id number] [facility] 2021-03-08 09:30:00 2021-03-08 09:45:00 Nurse Visit Visit, LbRmchp Nurse ColeyeFelicitas [facility] 1..840.114 350.1.13.10 4.2.7.2.686 [id number] 107 [id number] [facility] 2021-03-08 09:30:00 2021-03-08 09:30:00 Outpatient R [facility] [id number] [facility] 2021-03-08 00:00:00 2021-03-08 00:00:00 Letter (Out) Gray Cesar [facility] PHILOSOPHY INSTRUCTOR [facility] & CHILD [facility] 1..840.114 350.1.13.10 4.2.7.2.686 [id number] 107 [id number] [facility] 2021-02-17 15:15:00 2021-02-17 15:15:00 Outpatient R GRAY CESAR [facility] [id number] [facility] 2021-01-30 14:00:00 2021-01-30 14:00:00 Outpatient R GRAY CESAR [facility] [id number] [facility] 2021-01-30 00:00:00 2021-01-30 00:00:00 Telephone Felicitas Thayer [facility] CHILD [facility] 1..840.114 350.1.13.10 4.2.7.2.686 [id number] 107 [id number] [facility] 2020-12-14 12:54:16 2020-12-14 13:13:22 Nurse Visit Visit, [facility] Nurse Felicitas Thayer [facility] CHILD [facility] 1..840.114 350.1.13.10 4.2.7.2.686 [id number] 107 [id number] [facility] 2020-12-14 13:00:00 2020-12-14 13:00:00 Outpatient R [facility] [id number] [facility] 2020-12-14 00:00:00 2020-12-14 00:00:00 Letter (Out) Felicitas Thayer [facility] & [facility]ILD [facility] 1..840.114 350.1.13.10 4.2.7.2.686 [id number] 107 [id number] [facility] 2020-11-11 00:00:00 2020-11-11 00:00:00 Telephone Cyndee Thayerdestiny Waldron [facility] PHILOSOPHY INSTRUCTOR [facility] & CHILD [facility] 1.2.840.114 350.1.13.10 4.2.7.2.686 [id number] 107 [id number] [facility] 2020-11-08 15:23:54 2020-11-08 15:37:08 Merchandising Lead Visit Lab, [facility] Cyndee Thayerdestiny Waldron [facility] PHILOSOPHY INSTRUCTOR [facility] & CHILD [facility] 1.2.840.114 350.1.13.10 4.2.7.2.686 [id number] 107 [id number] [facility] 2020-11-08 15:00:00 2020-11-08 15:00:00 Outpatient R CYNDEE THAYERDESTINY [facility] [id number] [facility] 2020-11-08 00:00:00 2020-11-08 00:00:00 Telephone Cyndee Thayerdestiny Waldron [facility] PHILOSOPHY INSTRUCTOR [facility] & [facility]ILD [facility] 1.2.840.114 350.1.13.10 4.2.7.2.686 [id number] 107 [id number] [facility] 2020-11-01 00:00:00 2020-11-01 00:00:00 Telephone Cyndee Thayerdestiny Waldron [facility] PHILOSOPHY INSTRUCTOR [facility] & CHILD [facility] 1.2.840.114 350.1.13.10 4.2.7.2.686 [id number] 107 [id number] [facility] 2020-11-01 00:00:00 2020-11-01 00:00:00 Telephone Cyndee Thayerdestiny Waldron [facility] PHILOSOPHY INSTRUCTOR [facility] & [facility]ILD [facility] 1.2.840.114 350.1.13.10 4.2.7.2.686 [id number] 107 [id number] [facility] 2020-10-31 10:27:51 2020-10-31 11:15:25 Office Visit Felicitas Thayer [facility] PHILOSOPHY INSTRUCTOR [facility] & CHILD [facility] 1.2.840.114 350.1.13.10 4.2.7.2.686 [id number] 107 [id number] [facility] 2020-10-31 10:27:51 2020-10-31 11:15:25 Office Visit Felicitas Thayer [facility] PHILOSOPHY INSTRUCTOR [facility] & CHILD [facility] 1.2.840.114 350.1.13.10 4.2.7.2.686 [id number] 107 [id number] [facility] 2020-10-31 10:30:00 2020-10-31 10:30:00 Outpatient R FELICITAS THAYER [facility] [id number] [facility] 2020-10-31 00:00:00 2020-10-31 00:00:00 Orders Only Doctor Unassigned, [place] [facility] 1.2.840.114 350.1.13.10 4.2.7.2.686 [id number] [facility] 2020-09-21 13:00:00 2020-09-21 13:00:00 Outpatient R [facility] [id number] [facility] 2020-09-21 13:00:00 2020-09-21 13:00:00 Outpatient R GRAY CESAR [facility] [id number] [facility] 2020-07-25 08:10:00 2020-07-25 08:10:00 Outpatient [facility] [id number] [facility] 2020-07-25 08:10:00 2020-07-25 08:10:00 Outpatient R MEG LOWE [facility] [id number] [facility] 2020-07-07 13:00:00 2020-07-07 13:00:00 Outpatient R [facility] [id number] [facility] 2020-06-29 13:15:00 2020-06-29 13:15:00 Outpatient R GRAY CESAR [facility] [id number] [facility] 2020-06-25 11:30:00 2020-06-25 11:30:00 Outpatient SHARON ARNDT [facility] [id number] [facility] 2020-06-15 14:15:00 2020-06-15 14:15:00 Outpatient FELICITAS MANTILLA [facility] [id number] [facility] 2020-04-14 13:00:00 2020-04-14 13:00:00 Outpatient R [facility] [id number] [facility] 2020-01-21 14:30:00 2020-01-21 14:30:00 Outpatient FELICITAS MANTILLA [facility] [id number] [facility] 2020-01-13 13:00:00 2020-01-13 13:00:00 Outpatient Chivo THAYER, FELICITAS [facility] [id number] [facility] 2019-10-21 13:00:00 2019-10-21 13:00:00 Outpatient FELICITAS MANTILLA [facility] [id number] [facility] 2019-07-29 13:30:00 2019-07-29 13:30:00 Outpatient R [facility] [id number] [facility] 2019-05-06 15:15:00 2019-05-06 15:15:00 Outpatient hCivo THAYER SABRAShilpi [facility] [id number] [facility] 2019-05-06 13:15:00 2019-05-06 13:15:00 Outpatient FELICITAS MANTILLA [facility] [id number] [facility] Results Test Description Test Time Test Comments Results Result Co mments Source [facility] [id number] 22:28:05* Test Item Value Reference Range Interpretation Comme nts VENOUS BASE EXCESS, CORD (te st code = 8803046012) -3.4 mEq/L VENOUS PH, CORD (test code = 4315542914) 7.36 7.25-7.45 VENOUS PC02, CORD (test code = 1324809527) 40 27-49 VENOUS PO2, CORD (test code = 4255427147) 24 17-41 VENOUS BICARBONATE, CORD (te st code = 6436713590) 22 12-29 [facility]inine2025-02-02 19:11:06* Test Item Value Reference Range Interpretation Comme nts CREATININE (test code = 2160-0) 0.52 mg/dL 0.50-1.04 eGFR (test code = 50187-4) 136.6 mL/min/1.73m2 CKD-EPI eGFR (20 21). Assuming creatinine has been stable day-to-day for at least three months, the eGFR indicates Category G1 (>= 90 mL/min/1.73 m2) [facility] HospitalGALV ONLY - SYPHILIS [id number] 15:25:51* Test Item Value Reference Range Interpretation Comme nts Syphilis IgG/IgM (test code = 80382-1) Nonreactive Nonreactive Syphilis Serology Interpretation (test code = 38655-9) No serologic evidence of syphilis. If recent exposure is suspected, retest in 2 to 4 weeks. ASHLEY (test code = ASHLEY) ? [facility] Hospital[facility] Neuraxial [id number] 11:54:00 Marshall Blackmon MD ? ? 04/05/2024 ?7:17 AM Central Neuraxial Block Date/Time: 04/05/2024 5:54 AM Performed by: Marshall Blackmon, MDAuthorized by: Ludy Ayon MD ?Patient Location: OBEnd Time: 04/05/2024 6:02 AMReason for Block: OB request, Patient request, Labor analgesia, Surgical anesthesia and Post-op pain managementStaff: ? ?Resident/MEDICAL EDUCATION SPECIALIST: Popeye Sylvester MD ?Performed by: resident/CRNAPreanesthetic Checklist: patient identified, IV checked, risks and benefits explained, monitors and equipment checked, timeout performed, pre-op evaluation, site marked and anesthesia consentProcedure: ?Type of Neuraxial: Epidural ?Epidural Description: 1st attempt ? Sterility Prep cap, drape, gloves, hand hygiene and mask ? ?Sedation Level no sedation ?Patient Position: sitting ?Prep: Betadine and patient draped ? ?Monitoring: heart rate, continuous pulse ox, heart rate / toco and NIBP ?Location: lumbar (1-5) ?Lumbar: L3-L4 ?Approach: midline ? ?Technique: catheter and LOYDA saline ?Guidance with: landmark technique}Epidural/Spinal [place] and/or Catheter: ?Needle Type: Tuohy?Needle Gauge: 17 G ?Needle Length: 3.5 in (8.89 cm) ?Needle Insertion Depth: 5 ?Catheter Type: multiport ? ?Catheter Size: 19 G ? ?Catheter at Skin Depth: 11 ?Number of Attempts: 1 ?Test Dose: lidocaine 1.5% with epinephrine 1-to-200,000 ? ?Dose: 3 cc ? ?Catheter Securement Method: surgical tape,Tegaderm and liquid medical adhesiveAssessment: ?Block Outcome: a full evaluation is pending and patient tolerated procedure well ? ?Procedure Assessment: patient tolerated procedure well with no complicationsUnHCA Houston Healthcare MainlandHepatitis B Surface [id number] 07:53:42* Test Item Value Reference Range Interpretation Comme nts HBsAg Semi-Quantitative (angel t code = 5195-3) 0.[address] [facility] HospitalCBC with [id number] 06:36:00* Test Item Value Reference Range Interpretation Comme nts WBC (test code = 6690-2) 11.61 4.30-11.10 H RBC (test code = 789-8) 3.93 3.93-5.25 HGB (test code = 718-7) 10.3 g/dL 11.6-15.0 L HCT (test code = 4544-3) 31.2 % 35.7-45.2 L MCV (test code = 787-2) 79.4 fL 80.6-95.5 L MCH (test code = 785-6) 26.2 pg 25.9-32.8 MCHC (test code = 786-4) 33.0 g/dL 31.6-35.1 RDW-SD (test code = 58724-5) 38.7 fL 39.0-49.9 L RDW-CV (test code = 788-0) 13.4 % 12.0-15.5 PLT (test code = 777-3) 237 166-358 MPV (test code = 69586-5) 12.1 fL 9.5-12.9 NRBC/100 WBC (test code = 9773019433) 0.0 0.0-10.0 NRBC x10^3 (test code = 1030340039) See_Comment [Automated messa ge] The system which generated this result transmitted reference range: 10*3/?L. The reference range was not used to interpret this result as normal/abnormal. GRAN MAT (NEUT) % (test code = 770-8) 73.5 % IMM GRAN % (test code = 4360257686) 0.80 % LYMPH % (test code = 736-9) 19.5 % MONO % (test code = 5905-5) 5.6 % EOS % (test code = 713-8) 0.3 % BASO % (test code = 706-2) 0.3 % GRAN MAT x10^3(ANC) (test code = 4592290466) 8.55 10*3/uL 1.88-7.09 H IMM GRAN x10^3 (test code = 3165083588) 0.09 10*3/uL 0.00-0.06 H LYMPH x10^3 (test code = 731-0) 2.26 10*3/uL 1.32-3.29 MONO x10^3 (test code = 742-7) 0.65 10*3/uL 0.33-0.92 EOS x10^3 (test code = 711-2) 0.03 10*3/uL 0.03-0.39 BASO x10^3 (test code = 704-7) 0.03 10*3/uL 0.01-0.07 Lab Interpretation (test code = 18965-9) Abnormal [facility] HospitalType and Screen - ONCE [id number] 06:31:00 * Test Item Value Reference Range Interpretation Comme nts ABO & RH (test code = 20) O POSITIVE IAT (test code = 1185) Negative [facility] HospitalPOCT URINALYSIS W SPECIFIC [id number] 22:04:00* Test Item Value Reference Range Interpretation Comme nts POCT U SP GRAV (test code = 3255) . 1.005-1.025 POCT PH U (test code = 3254) 7 mg/dl 5-8 POCT U LEUK EST (test code = 3263) Trace Negative - Negative POCT U NIT (test code = 3262) Neg Negative - Negati ve POCT U PROT (test code = 3259) Trace Negative - Negat krystal POCT U GLU (test code = 3256) Nml Negative - Negati ve POCT U KETONE (test code = 3258) None Negative - Neg ative POCT U UROBILI (test code = 3260) . 0.2-1 POCT U BILI (test code = 3261) . Negative - Negat krystal POCT U BLD (test code = 3257) Trace Negative - Negati ve POCT U COLOR (test code = 3266) . POCT U APPEAR (test code = 3267) General acute hospital URINALYSIS W SPECIFIC [id number] 19:52:00* Test Item Value Reference Range Interpretation Comme nts POCT U SP GRAV (test code = 3255) . 1.005-1.025 POCT PH U (test code = 3254) . 5-8 POCT U LEUK EST (test code = 3263) . Negative - N egative POCT U NIT (test code = 3262) . Negative - Negati ve POCT U PROT (test code = 3259) . Negative - Negat krystal POCT U GLU (test code = 3256) . Negative - Negati ve POCT U KETONE [...] U APPEAR (test code = 3267) . General acute hospital URINALYSIS W SPECIFIC [id number] 15:41:00* Test Item Value Reference Range Interpretation Comme nts POCT U SP GRAV (test code = 3255) . 1.005-1.025 POCT PH U (test code = 3254) 7 mg/dl 5-8 POCT U LEUK EST (test code = 3263) trace Negative - Negative POCT U NIT (test code = 3262) neg Negative - Negati ve POCT U PROT (test code = 3259) trace Negative - Negat krystal POCT U GLU (test code = 3256) neg Negative - Negati ve POCT U KETONE (test code = 3258) neg Negative - Neg ative POCT U UROBILI (test code = 3260) . 0.2-1 POCT U BILI (test code = 3261) . Negative - Negat krystal POCT U BLD (test code = 3257) neg Negative - Negati ve POCT U COLOR (test code = 3266) . POCT U APPEAR (test code = 3267) . General acute hospital URINALYSIS W SPECIFIC [id number] 18:18:00* Test Item Value Reference Range Interpretation Comme nts POCT U SP GRAV (test code = 3255) . 1.005-1.025 POCT PH U (test code = 3254) . 5-8 POCT U LEUK EST (test code = 3263) . Negative - N egative POCT U NIT (test code = 3262) . Negative - Negati ve POCT U PROT (test code = 3259) . Negative - Negat krystal POCT U GLU (test code = 3256) . Negative - Negati ve POCT U KETONE [...] U APPEAR (test code = 3267) . General acute hospital URINALYSIS W SPECIFIC [id number] 22:20:00* Test Item Value Reference Range Interpretation Comme nts POCT U SP GRAV (test code = 3255) . 1.005-1.025 POCT PH U (test code = 3254) 7 mg/dl 5-8 POCT U LEUK EST (test code = 3263) 1+ Negative - Negative POCT U NIT (test code = 3262) Neg Negative -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
[2024-04-13] MEDS ORDERED: NA CHLORIDE 0.9% 1,000 ML ONE (01:08)
[2024-04-13 01:40] LABS: Absolute Basophils 0.1 K/uL (0-0.5); Absolute Eosinophils 0.1 K/uL (0-0.5); Absolute Lymphocytes (CBC) 2.2 K/uL (0.7-4.9); Absolute Monocytes 0.3 K/uL (0.1-1.3); Absolute Neutrophil 8.2 K/uL (1.8-8.0); Basophils % 0.9 % (0-1.3); Eosinophils % 0.6 % (0-4.4); Hematocrit 33.6 % (36.0-45.0); Hemoglobin 11.2 g/dL (12.0-15.0); Lymphocytes % 20.1 % (15.3-44.8); MCH 26.7 pg (27.0-35.0); MCHC 33.5 g/dL (32.0-36.0); MCV 79.6 fL (80-100); Neutrophils % 75.4 % (41.7-73.7); Nucleated Red Blood Cells % 0.1 % (0-0); Platelets 274 thou/uL (152-406); RBC Red Blood Cell Count 4.22 M/uL (3.86-4.86); Red Cell Distribution Width 15.3 % (12.1-15.2)
[2024-04-13 01:41] LABS: PT Prothrombin Time 11.4 SECONDS (9.4-12.5); PTT, Activated Partial Thromb 33.9 SECONDS (24.3-36.9); Protime INR 1.09
[2024-04-13 01:48] LABS: Anion Gap 10.4 mEq/L (5.0-15.0); Potassium 3.4 mEq/L (3.5-5.1)
--- NOTE | 2024-04-13 01:56 | RAD REPORT ---
EXAM DESCRIPTION: Pelvis Complete CLINICAL HISTORY: 18 years Female, VAGINAL BLEEDING COMPARISON: None. TECHNIQUE: Transabdominal images of the pelvis obtained. FINDINGS: Uterus: Measures 11.0 x 8.0 x 10.7 cm. Uterus is diffusely heterogeneous without focal myometrial mas s. Endometrium: Endometrium is slightly ill-defined and heterogeneous with trace mildly complex fluid in the endometrial canal. No internal vascularity on color Doppler images. Right ovary: Not visualized. Left ovary: Not visualized. Adnexa: No additional abnormality. Free fluid: Trace free pelvic fluid. IMPRESSION: 1. Heterogeneous enlarged uterus, likely due to recent state. 2. Endometrium is slightly ill-defined and heterogeneous with trace mildly complex fluid in the end ometrial canal, probably due to blood products. No internal vascularity on color Doppler images to suggest retained products of conception. 3. Ovaries are not visualized. 4. Trace free pelvic fluid. Electronically signed by: Neela Miller MD 04/13/2024 01:52 AM [facility] Due to temporary technical issues with the PACS/eSparkibCan'tWait reporting system, reports are being signed by the in-house radiologist without review as a courtesy to ensure prompt reporting the interpreting radiologist is fully responsible for the content of the report. Transcribed Date/Time: 04/13/2024 1:56 AM
--- NOTE | 2024-04-13 02:39 | EDPHYS ---
Physician Documentation [facility] Name: Anna Chiang Age: 18 yrs Sex: Female : 2005 Arrival Date: 04/13/2024 Time: 00:00 Bed 18 Private MD: ED Physician Michael Schuster HPI: 04/13 00:25 This 18 yrs old Black Female presents to ER via Ambulatory with complaints of Vaginal cp Bleeding. 00:25 The patient presents with vaginal bleeding that is heavy, with clots. cp 00:25 Onset: The symptoms/episode began/occurred suddenly, at 20:25. Associated signs and cp symptoms: Pertinent negatives: fever, abdominal pain. Patient reports recent delivery of full term healthy 1 week ago by vaginal delivery. Vaginal bleeding had stopped but returned suddenly this evening. 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 - Infectious Disease History:: Denies. - Social history:: Smoking status: Patient denies any tobacco usage or history of. ROS: 00:30 : Positive for vaginal bleeding, Negative for urinary symptoms, cp 00:30 Constitutional: Negative for body aches, chills, fever, poor PO intake, cp 00:30 Eyes: Negative for injury, pain, redness, and discharge, cp 00:30 Cardiovascular: Negative for chest pain, edema, palpitations, 00:30 Respiratory: Negative for cough, shortness of breath, wheezing, 00:30 Abdomen/GI: Negative for abdominal pain, nausea and vomiting, diarrhea, constipation, anorexia, 00:30 Neuro: Negative for altered mental status, dizziness, headache, weakness, 00:30 All other systems are negative, Exam: 00:35 Constitutional: The patient appears in no acute distress, alert, awake, comfortable, cp non-toxic, well developed, well nourished, 00:35 Head/Face: Normocephalic, atraumatic. cp 00:35 Eyes: Periorbital structures: appear normal, Conjunctiva: normal, no exudate, no injection, Sclera: no appreciated abnormality, Lids and lashes: appear normal, bilaterally, 00:35 ENT: External ear(s): are unremarkable, Nose: is normal, Mouth: Lips: moist, Oral mucosa: moist, Posterior pharynx: Airway: no evidence of obstruction, patent, 00:35 Chest/axilla: Inspection: normal, 00:35 Cardiovascular: Rate: normal, Rhythm: regular, Edema: is not appreciated, JVD: is not appreciated, 00:35 Respiratory: the patient does not display signs of respiratory distress, Respirations: normal, no use of accessory muscles, no retractions, labored breathing, is not present, Breath sounds: are clear throughout, no decreased breath sounds, no stridor, no wheezing, 00:35 Abdomen/GI: Inspection: abdomen appears normal, Bowel sounds: active, all quadrants, Palpation: soft, in all quadrants, nontender, in all quadrants, 00:35 Back: pain, is absent, ROM is normal, 00:35 Neuro: Orientation: to person, place \T\ time. Mentation: is normal, Cerebellar function: is grossly normal, Motor: moves all fours, strength is normal, Sensation: is normal, Vital Signs: 00:17 BP 120 / 94; Pulse 65; Resp 16; Temp 98(TE); Pulse Ox 99% on R/A; Weight 62.6 kg (R); jb4 Height 5 ft. 6 in. ; Pain 5/10; 03:06 BP 115 / 65; Pulse 71; Resp 20 S; Pulse Ox 99% on R/A; ha1 00:17 Body Mass Index 22.27 (62.60 kg, 167.64 cm) jb4 00:17 Pain Scale: Adult jb4 MDM: 00:15 Medical Screening Exam initiated cp 02:37 Data reviewed: vital signs, nurses notes, lab test result(s), radiologic studies, cp ultrasound, and as a result, I will discharge patient. 02:37 Differential diagnosis: anemia, hemorrhage, retained products. Counseling: I had cp a detailed discussion with the patient and/or guardian regarding the historical points, exam findings, and any diagnostic results supporting the discharge/admit diagnosis, lab results, radiology results, the need for outpatient follow up, an OB/Gyne specialist, to return to the emergency department if symptoms worsen or persist or if there are any questions or concerns that arise at home. 04/13 00:22 Order name: Basic Metabolic Panel; Complete Time: 02:32 cp 04/13 02:32 Interpretation: Normal except: K 3.4; CL 111. cp 04/13 00:22 Order name: CBC with Diff; Complete Time: 01:47 cp 04/13 01:47 Interpretation: Normal except: HGB 11.2; HCT 33.6; MCV 79.6; MCH 26.7; RDW 15.3; ESTELITA% cp 75.4; MN% 3.0; NEUT A 8.2. 04/13 00:22 Order name: Quantitative Hcg; Complete Time: 02:32 cp 04/13 02:33 Interpretation: HCGQ 249; Reviewed. cp 04/13 00:22 Order name: PT-INR; Complete Time: 01:47 cp 04/13 00:22 Order name: Ptt, Activated; Complete Time: 01:47 cp 04/13 00:22 Order name: Type And Screen; Complete Time: 02:32 cp 04/13 02:33 Interpretation: Reviewed. cp 04/13 00:25 Order name: Test, Serum; Complete Time: 01:47 jb4 02 02:34 Interpretation: Reviewed. cp 04/13 01:02 Order name: Pelvis Complete EDMS 04/13 00:22 Order name: IV Saline Lock; Complete Time: 00:53 cp 04/13 00:22 Order name: Labs collected and sent; Complete Time: 00:53 cp 04/13 00:22 Order name: NPO; Complete Time: 00:24 cp 04/13 00:22 Order name: IV; Complete Time: 00:53 cp Administered Medications: 01:32 Drug: NS 0.9% IV 1000 ml IV at 1000 ml once; to be given as a bolus over 60 minutes jb4 Route: IV; Rate: 1000 ml; Site: right antecubital; Disposition Summary: 04/13/24 02:38 Discharge Ordered Notes: Location: Home cp Problem: new cp Symptoms: have improved cp Condition: Stable cp Diagnosis - Other specified abnormal uterine and vaginal bleeding cp - Anemia, unspecified cp Followup: cp - With: Private Physician - When: 2 - 3 days - Reason: Recheck today's complaints Discharge Instructions: - Discharge Summary Sheet cp - Abnormal Uterine Bleeding cp - Anemia cp - Care After Vaginal Delivery cp Forms: - Medication Reconciliation Form cp - Antibiotic Education cp - Prescription Opioid Use cp - Patient Portal Instructions cp - Leadership Thank You Letter cp Signatures: Dispatcher [employer] EDLA Michael Lovett PA PA cp Primitivo Sun, RN RN jb4 Corrections: (The following items were deleted from the chart) 01: 00:22 Transvaginal Study (Probe)+US.RAD.BRZ ordered. EDLA EDMS :44 00:22 Test, Urine+UC.LAB.BRZ ordered. EDMS EDMS :44 00:22 Urinalysis+U.LAB.BRZ ordered. EDLA EDMS 02:37 02:34 The patient presents with vaginal bleeding that is heavy, with clots, cp cp 02:37 02:34 This 18 yrs old Black Female presents to ER via Ambulatory with complaints of cp Vaginal Bleeding. cp
--- NOTE | 2024-04-13 02:39 | ER ---
Nurse's Notes [facility] Name: Anna Chiang Age: 18 yrs Sex: Female : 2005 Arrival Date: 04/13/2024 Time: 00:00 Bed 18 Private MD: Diagnosis: Other specified abnormal uterine and vaginal bleeding;Anemia, unspecified Presentation: 04/13 00:17 Chief complaint: Patient states: I started having vaginal bleeding around 845 pm. I jb4 have bled through 2 pads so far. I delivered 1 week ago. Coronavirus screen: At this time, the client does not indicate any symptoms associated with coronavirus-19. Ebola Screen: No symptoms or risks identified at this time. Initial Sepsis Screen: Does the patient meet any 2 criteria? No. Patient's initial sepsis screen is negative. Does the patient have a suspected source of infection? No. Patient's initial sepsis screen is negative. Risk Assessment: Do you want to hurt yourself or someone else? Patient reports no desire to harm self or others. Onset of symptoms was April 13, 2024. Transition of care: patient was not received from another setting of care. 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 - Infectious Disease History:: Denies. - Social history:: Smoking status: Patient denies any tobacco usage or history of. Screenin:21 [facility] ED Fall Risk Assessment (Adult) History of falling in the last 3 months, jb4 including since admission No falls in past 3 months (0 pts) Confusion or Disorientation No (0 pts) Intoxicated or Sedated No (0 pts) Impaired Gait No (0 pts) Mobility Assist Device Used No (0 pt) Altered Elimination No (0 pt) Score/Fall Risk Level 0 - 2 = Low Risk Oriented to surroundings, Maintained a safe environment. Abuse screen: Denies threats or abuse. Nutritional screening: No deficits noted. Tuberculosis screening: No symptoms or risk factors identified. Assessment: 00:21 General: Appears in no apparent distress. uncomfortable, Behavior is calm, cooperative, jb4 appropriate for age. Pain: Complains of pain in right ribs, groin. Pain does not radiate. Pain currently is 5 out of 10 on a pain scale. Neuro: Level of Consciousness is awake, alert, obeys commands, Oriented to person, place, time, situation. Cardiovascular: Patient's skin is warm and dry. Respiratory: Airway is patent Respiratory effort is even, unlabored, Respiratory pattern is regular, symmetrical. : Reports vaginal bleeding that is bright red, heavy flow. EENT: No signs and/or symptoms were reported regarding the EENT system. Derm: Skin is intact, Skin is dry, Skin is pale, Skin temperature is warm. Musculoskeletal: Circulation, motion, and sensation intact. Range of motion: intact in all extremities. Vital Signs: 00:17 BP 120 / 94; Pulse 65; Resp 16; Temp 98(TE); Pulse Ox 99% on R/A; Weight 62.6 kg (R); jb4 Height 5 ft. 6 in. ; Pain 5/10; 03:06 BP 115 / 65; Pulse 71; Resp 20 S; Pulse Ox 99% on R/A; ha1 00:17 Body Mass Index 22.27 (62.60 kg, 167.64 cm) jb4 00:17 Pain Scale: Adult jb4 ED Course: 00:09 Patient arrived in ED. rv1 00:15 Michael Lovett PA is PHCP. cp 00:15 Michael Schuster MD is Attending Physician. cp 00:20 Triage completed. jb4 00:20 Arm band placed on right wrist. jb4 00:21 Patient has correct armband on for positive identification. Bed in low position. Call [facility] light in reach. Side rails up X 1. Provided Education on: plan of care. 00:50 Inserted saline lock: 18 gauge in right antecubital area, using aseptic technique. ha1 Blood collected. Flushed with 10 mL NS. 00:53 Quantitative Hcg Sent. jb4 00:53 CBC with Diff Sent. jb4 00:53 Basic Metabolic Panel Sent. jb4 00:53 PT-INR Sent. jb4 00:53 Ptt, Activated Sent. jb4 00:53 Type And Screen Sent. jb4 00:53 Test, Serum Sent. jb4 01:02 Pelvis Complete In Process Unspecified. EDMS 03:05 No provider procedures requiring assistance completed. IV discontinued, intact, ha1 bleeding controlled, No redness/swelling at site. Pressure dressing applied. Administered Medications: 01:32 Drug: NS 0.9% IV 1000 ml IV at 1000 ml once; to be given as a bolus over 60 minutes jb4 Route: IV; Rate: 1000 ml; Site: right antecubital; Medication: 00:21 VIS not applicable for this client. jb4 Outcome: 02:38 Discharge ordered by . edith 03:06 Discharged to home ambulatory, with family, ha1 03:06 Condition: stable 03:06 Discharge instructions given to patient, family, Instructed on discharge instructions, follow up and referral plans. Demonstrated understanding of instructions, follow-up care, 03:06 Patient left the ED. ha1 Signatures: Dispatcher [employer] EDMS Michael Lovett PA PA cp Bryson, James, RN RN jb4 Shannon Hines RN RN 1 Thais Camara 1 Corrections: (The following items were deleted from the chart) 01:44 00:53 Urinalysis+U.LAB.BRZ drawn and sent. jb4 EDMS 01:44 00:53 Test, Urine+UC.LAB.BRZ drawn and sent. jb4 EDMS
[2024-04-13 03:16] VITALS: TEMP 98; O2SAT 99
[2024-04-13 03:17] VITALS: BP 115/65
== END 2024-04-13 03:06 | disposition home or self-care (01) ==
LOC: ER
DX: D64.9 Anemia, unspecified (principal)
CPT/HCPCS: 85025; 80048; 36415; 86900; 86850; 84703; 85610; 86901; 85730; 84702; 76856; J7030; 99284